=== PATIENT | male | born 1930 | race Caucasian/White ===

== ENCOUNTER 2016-07-06 09:22 | Inpatient (IN) ==
[2016-07-06] MEDS ORDERED: IPRATROPIUM/ALBUTEROL 3 ML AMPUL.NEB NEB ONE ×2 (09:27→09:59)
[2016-07-06 10:17] LABS: Basophils # (Auto) 0.2 K/mcL (0.0-0.3); Basophils % (Auto) 1.8 % (0.0-2.0); Eosinophils # (Auto) 4.5 K/mcL (0.0-0.7); Eosinophils % (Auto) 36.2 % (0.0-7.0); Granulocytes % (Auto) 38.1 % (38.0-78.0); Lymphocytes # (Auto) 1.6 K/mcL (1.5-4.8); Lymphocytes % (Auto) 12.7 % (15.5-49.0); Mean Cell Volume 95.7 fL (80.0-100.0); Mean Corpuscular HGB Conc 32.3 g/dL (31.0-36.0); Mean Corpuscular Hemoglobin 30.9 pg (26.0-34.0); Monocytes # (Auto) 1.4 K/mcL (0.1-0.9); Monocytes % (Auto) 11.2 % (1.0-12.0); Platelet Count 561 K/mcL (140-440); RBC 3.33 M/mcL (4.50-5.90); Red Cell Distribution Width 20.5 % (11.5-14.5)
--- NOTE | 2016-07-06 10:41 | XRay Report ---
HISTORY: Reason for Exam:Chest Pain FINDINGS: A mild alveolar infiltrate is developed in the right lower lobe. This is new since 01/27/16. Prominent increased interstitial lung markings are present bilaterally. This was present on the prior study but more apparent on today's exam. The patient may have underlying interstitial fibrosis and interstitial inflammation. No pleural effusion is present. The heart size is normal. IMPRESSION: Mild right lower lobe pneumonia superimposed upon underlying interstitial lung disease Interpreted and Authenticated by: Scottie Narayan 07/06/16
[2016-07-06 10:43] LABS: Creatine Kinase MB 4.2 ng/ml (0-4.9); Myoglobin 83 ng/ml (28-72)
[2016-07-06 10:44] LABS: ALT/SGPT 14 U/l (0-40); Albumin 4.4 gm/dL (3.2-5.2); Albumin/Globulin Ratio 1.5 (1.0-2.3); Alkaline Phosphatase 196 U/L (39-117); Blood Urea Nitrogen 20 mg/dl (8-23); Creatine Kinase 59 IU/L (24-195)
[2016-07-06] MEDS ORDERED: cefTRIAXone 1 GM VIAL ONE (11:42)
[2016-07-06] MEDS ORDERED: PIPERACILLIN SODIUM/TAZOBACTAM 3.375 GM VIAL IV ONE (11:43)
[2016-07-06] MEDS ORDERED: ONDANSETRON 4 MG/2 ML VIAL IV PRN (12:39)
[2016-07-06] MEDS ORDERED: VANCOMYCIN PER PHARMACY IV ONE (12:39)
[2016-07-06] MEDS ORDERED: ACETAMINOPHEN 325 MG TABLET PO PRN (12:39)
[2016-07-06] MEDS ORDERED: MECLIZINE 25 MG TABLET PO PRN (12:39)
[2016-07-06] MEDS ORDERED: ACETAMINOPHEN 1,000 MG/100 ML BOTTLE IV PRN (12:39)
[2016-07-06] MEDS ORDERED: traZODone HCL 50 MG TABLET PO PRN (12:39)
[2016-07-06] MEDS ORDERED: LORazepam (PP) 1 MG TABLET (#4) PO PRN (12:39)
[2016-07-06] MEDS ORDERED: POTASSIUM CHLORIDE 20 MEQ PACKET PO PRN (12:39)
[2016-07-06] MEDS ORDERED: MAGNESIUM SULFATE 2 GM/50 ML BAG IV PRN (12:39)
[2016-07-06] MEDS ORDERED: guaiFENesin/CODEINE 10 ML UDC PO PRN (12:39)
[2016-07-06] MEDS ORDERED: PIPERACILLIN SODIUM/TAZOBACTAM 3.375 GM in DEXTROSE 5% IN WATER 50 ML IV SCH (12:45)
[2016-07-06] MEDS ORDERED: cefTRIAXone 1 GM in DEXTROSE 5% IN WATER 50 ML IV ONE (12:45)
[2016-07-06] MEDS ORDERED: VANCOMYCIN 1,000 MG in 0.9 % SODIUM CHLORIDE 250 ML IV ONE (12:47)
[2016-07-06 13:19] LABS: C-Reactive Protein 0.6 mg/dl (0.0-0.8)
[2016-07-06] MEDS ORDERED: WARFARIN 2.5 MG TABLET PO ONE (14:00)
[2016-07-06] MEDS: IPRATROPIUM/ALBUTEROL 3 ML AMPUL.NEB NEB SCH ×3 (14:51→23:03)
[2016-07-06 16:24] LABS: Hemoglobin A1C 4.9 % HGB (4.0-6.0)
--- NOTE | 2016-07-06 16:30 | History and Physical Report ---
DATE OF ADMISSION: 07/06/2016 REASON FOR ADMISSION: Worsening shortness of breath. HISTORY OF CHIEF COMPLAINT: This is an 86-year-old gentleman who comes in to [facility] with worsening shortness of breath that has progressed over the last couple of days. The patient usually uses 2 liters of oxygen. He is undergoing rehab at the care facility for his recent hip surgery. However, due to deteriorating status he comes to [facility] ER requiring over 3 liters of oxygen. Initial workup was significant for right lower lobe pneumonia, superimposed interstitial lung disease. The patient received first dose of antibiotics. Hospitalist Service was consulted. At the time of examination, the patient is alert, was able to answer most of the questions. He does not seem to be in apparent distress, but he is slightly short of breath. He endorses to cough but denies fevers, shaking chills, drenching sweats. He endorses to sick contacts at the care center. However, he is up-to-date on pneumonia vaccine. He denies weight loss, glandular swelling, bloody stool, diarrhea, or dysuria. REVIEW OF SYSTEMS: Ten-point review of system was performed and negative except the ones discussed above. PAST MEDICAL HISTORY: 1. History of interstitial lung disease. 2. Macrocytic anemia. 3. Gout. 4. Hypertension. 5. O2-dependent COPD. 6. DJD. 7. Seizure disorder. 8. Anticoagulation for CVA prophylaxis. 9. Atrial fibrillation. CURRENT MEDICATIONS: 1. Budesonide inhaled b.i.d. 2. Warfarin 5 mg. 3. Tramadol 50 mg. 4. Losartan 100 mg. 5. Lorazepam 0.5 mg at bedtime p.r.n. 6. Gabapentin 300 mg b.i.d. 7. Fluoxetine 20 mg. 8. Meclizine 25 mg t.i.d. p.r.n. ALLERGIES: KNOWN TO LATEX. SOCIAL HISTORY: The patient is to his , Rayne. He quit smoking 7 years ago, but carries over a [id number] history of smoking. Regular alcohol use. Sees Gaviota Mercedes NP, primary care physician. FULL CODE STATUS. FAMILY HISTORY: None major. PHYSICAL EXAMINATION: GENERAL: The patient is alert and oriented. He denies any active distress except for mild shortness of breath. BMI 23. Height 5 feet 11 inches. VITAL SIGNS: Blood pressure 157/66, respiratory rate 18, temperature 97.4, pulse 88 and regular, sats 96% on 3 liters of oxygen. HEENT: Pupils bilaterally symmetric. Oral cavity is dry. No ear or nose discharge. Head is normocephalic and atraumatic. NECK: No lymphadenopathy. HEART: S1, S2 regular rhythm. ESM grade 1. CHEST: Diminished breath sounds at bases, late inspiratory crackles and expiratory rhonchi appreciated. ABDOMEN: Soft and nontender. LOWER EXTREMITIES: No cyanosis or clubbing. No joint swelling. SKIN: No suspicious lesions. PSYCHIATRIC: Alert and cooperative. No anxiety. NEURO: Nonfocal, moving all four extremities. LABS AND IMAGING: Left lower lobe infiltrate suggestive of pneumonia on imaging. White count 12.3, hemoglobin 10.3, ESR 38, platelets 561. Lactic acid 0.9. D-dimer negative. Sodium 136, potassium 4.2, creatinine 1.1, BUN 20. Cardiac enzymes negative. BNP 2251. Procalcitonin less than 0.05. ASSESSMENT AND PLAN: An 86-year-old admitted with right lower lobe pneumonia with dyspnea. 1. Right lower lobe pneumonia. Continue antibiotic coverage for community-acquired versus aspiration. Include Zosyn for gram-negative anaerobe coverage. Await sputum cultures, blood cultures. 2. Hypoxic respiratory insufficiency secondary to above. Continue supplemental oxygen. 3. History of underlying COPD. Continue bronchodilators. 4. Anxiety disorder. Continue SSRI. 5. History of atrial fibrillation. Rate control. 6. CVA prophylaxis on Coumadin. 7. Hypertension. Continue losartan. 8. Neuropathy. Continue gabapentin. PLAN FOR TODAY: 1. Admit as inpatient. 2. Antibiotic coverage. 3. Preexisting medical condition management as above. AA:west Job ID: [id number] Doc ID: [id number] Thomas Mercedes NP
[2016-07-06] MEDS: 0.9 % SODIUM CHLORIDE 10 ML SYRINGE IV SCH ×2 (16:38→22:39)
[2016-07-06] MEDS: PIPERACILLIN SODIUM/TAZOBACTAM 3.375 GM in DEXTROSE 5% IN WATER 50 ML IV SCH ×3 (16:38→23:26)
[2016-07-06] MEDS: BUDESONIDE 0.5 MG/2 ML AMPUL.NEB NEB SCH (19:14)
[2016-07-06] MEDS: traMADol 50 MG TABLET PO PRN (21:54)
[2016-07-06] MEDS: LORazepam 0.5 MG TABLET PO PRN (21:55)
[2016-07-06] MEDS: SENNOSIDES/DOCUSATE SODIUM 1 TAB TABLET PO SCH (22:39)
[2016-07-06] MEDS: DOCUSATE SODIUM 100 MG CAPSULE PO SCH (22:39)
[2016-07-07] MEDS: GABAPENTIN 300 MG CAPSULE PO PRN (02:20)
[2016-07-07] MEDS: IPRATROPIUM/ALBUTEROL 3 ML AMPUL.NEB NEB SCH ×6 (02:20→22:23)
[2016-07-07] MEDS: 0.9 % SODIUM CHLORIDE 10 ML SYRINGE IV SCH ×2 (05:19→14:02)
[2016-07-07] MEDS: PIPERACILLIN SODIUM/TAZOBACTAM 3.375 GM in DEXTROSE 5% IN WATER 50 ML IV SCH ×3 (05:19→18:05)
[2016-07-07 06:28] LABS: Mean Corpuscular HGB Conc 32.3 g/dL (31.0-36.0); Platelet Count 410 K/mcL (140-440); RBC 2.69 M/mcL (4.50-5.90); Red Cell Distribution Width 20.5 % (11.5-14.5)
[2016-07-07 06:39] LABS: ALT/SGPT 11 U/l (0-40); Albumin 3.5 gm/dL (3.2-5.2); Albumin/Globulin Ratio 1.4 (1.0-2.3); Alkaline Phosphatase 161 U/L (39-117); Bilirubin,Direct < 0.2 mg/dL (0.0-0.3); Blood Urea Nitrogen 16 mg/dl (8-23); Gamma Glutamyl Transpeptidase 44 U/L (8-61); Magnesium 2.1 mg/dL (1.6-2.5); Uric Acid 5.8 mg/dL (2.5-8.0)
[2016-07-07] MEDS: BUDESONIDE 0.5 MG/2 ML AMPUL.NEB NEB SCH ×3 (06:51→19:25)
[2016-07-07 07:46] LABS: Band Neutrophils % 4 % (0-10); Basophils % (Manual) 1 % (0-2); Eosinophils % (Manual) 38 % (0-7); Lymphocytes % 10 % (15-49); Monocytes % (Manual) 7 % (1-12); Platelet Estimate NORMAL (NORMAL); RBC Morphology ABNORM (NORMAL); Segmented Neutrophils % 40 % (38-78)
--- NOTE | 2016-07-07 08:29 | Emergency Department Note ---
SOB HPI - General Chief Complaint: Shortness of Breath/Dyspnea Stated Complaint: short of breath Time Seen by Provider: 07/06/16 09:58 Source: patient, family Mode of arrival: ambulatory Limitations: no limitations - History of Present Illness This patient was seen and brought in at the time our computers were down-so I am re-creating this note from notes taken at that time This 86-year-old gentleman normally walks several rounds at [facility]. However today he became short of breath and had to sit down and could not continue. In the past when he said similar episodes it was a pneumonia; he is concerned about that today. He does take 2 L oxygen by nasal cannula [id number]. Denies nausea vomiting diarrhea dysuria or fever His supplied much of the history and corrected him several times- it is not clear if he is having some memory issues - Related Data Home Medications Medication Instructions Recorded Confirmed albuterol sulfate HFA 90 2 puff INHALATION .COMPLEX g 09/02/14 07/06/16 mcg/actuation aerosol inhaler aspirin 81 mg chewable tablet 81 mg PO QDAY tab 09/02/14 07/06/16 budesonide 0.5 mg/2 mL suspension 0.5 mg INHALATION Q12H ml 09/02/14 07/06/16 for nebulization calcium carbonate 500 mg (1,250 1 tab PO TID tab 09/02/14 07/06/16 mg)-vitamin D3 125 unit tablet traMADol [Ultram] 50 mg PO Q6HP PRN 09/06/15 07/06/16 Previous Rx's Medication Instructions Recorded Meclizine [Antivert] 25 mg PO TIDP PRN #20 tab 04/28/15 losartan 100 mg tablet 100 mg PO QDAY #90 tab 10/03/15 lorazepam 1 mg tablet 0.5 mg PO QHS PRN 30 Days 11/14/15 fluticasone 50 mcg/actuation nasal 2 spray INTRANASAL BID #16 g 04/02/16 spray,suspension fluoxetine 20 mg capsule 20 mg PO QDAY #30 cap 05/03/16 gabapentin 300 mg capsule 300 mg PO BID PRN 90 Days 05/03/16 warfarin 5 mg tablet See Dose Instructions PO QDAY #60 05/10/16 tab Allergies Allergy/AdvReac Type Severity Reaction Status Date / Time latex Allergy Mild Rash Verified 07/06/16 09:34 Review of Systems All systems ED: reviewed and negative except as stated. Past Medical History - Past Medical History Attestation: Yes: The following information was validated with the patient. Medical history: Reports: atrial fibrillation (n Coumadin), CHF, COPD, CVA, hypertension, osteoporosis, peripheral artery disease, other (gout, multiple myeloma/myelodysplasia) Surgical history ED: Reports: herniorrhaphy, hip replacement, orthopedic, other (2 leg), tonsillectomy Psychiatric history: Reports: depression - Social History smoking status: Former smoker Alcohol use: Reports: None Drug use: Reports: none Physical Exam Thin male no acute distress wearing nasal cannula oxygen. Significant gross hearing loss. Normocephalic atraumatic. Conjunctiva clear sclerae white and nonicteric. No nasal discharge or congestion. Oropharynx is pink and moist. Neck is supple without lymphadenopathy thyromegaly or carotid bruit. Heart is irregularly irregular rhythm. No murmurs appreciated. Lungs are basically clear to auscultation bilaterally but I'm not hearing well at the bases. No wheezes rales rhonchi or respiratory distress. Abdomen soft nontender nondistended. No pedal edema. +2 radial pulse. Alert and oriented and giving me a reasonable history- albeit corrected by his . He does express some frustration that he doesn't remember some things. Somewhat depressed mood/ frustrated/irritable - General Limitations: no limitations Course Vital Signs Temperature 97.1 F L 07/06/16 09:28 Pulse Rate 88 07/06/16 09:28 Respiratory Rate 20 07/06/16 09:28 Pulse Oximetry (%) 100 07/06/16 09:28 Temperature 97.4 F L 07/07/16 02:43 Pulse Rate 88 07/07/16 07:27 Respiratory Rate 16 07/07/16 07:27 Blood Pressure 159/68 07/07/16 02:43 Pulse Oximetry (%) 97 07/07/16 07:28 Shortness of Breath/Dyspnea - Lab Data Lab results reviewed: Yes I reviewed the patient's lab results. Result diagrams: 07/07/16 04:34 07/07/16 04:34 Lab Results 07/06/16 07/06/16 07/06/16 Range/Units 09:57 09:57 09:57 WBC 12.3 H (4.5-11.0) K/mcL RBC 3.33 L (4.50-5.90) M/mcL Hgb 10.3 L (13.5-16.5) g/dL Hct 31.9 L (41.0-55.0) % MCV 95.7 (80.0-100.0) fL MCH 30.9 (26.0-34.0) pg MCHC 32.3 (31.0-36.0) g/dL RDW 20.5 H (11.5-14.5) % Plt Count 561 H (140-440) K/mcL MPV 8.4 (7.4-10.4) fL Gran % 38.1 (38.0-78.0) % Lymph % (Auto) 12.7 L (15.5-49.0) % [place] % (Auto) 11.2 (1.0-12.0) % Eos % (Auto) 36.2 H (0.0-7.0) % Baso % (Auto) 1.8 (0.0-2.0) % Gran # 4.7 (1.8-8.0) K/mcL Lymph # 1.6 (1.5-4.8) K/mcL [place] # 1.4 H (0.1-0.9) K/mcL Eos # 4.5 H (0.0-0.7) K/mcL Baso # 0.2 (0.0-0.3) K/mcL ESR (0-15) mm/hr D-Dimer (0.00-0.40) ug/ml VBG Lactic Acid (0.5-2.2) mmol/L Sodium 136 (133-145) mmol/L Potassium 4.2 (3.3-5.1) mmol/L Chloride 98 (96-108) mmol/L Carbon Dioxide 23 (22-30) mmol/L Anion Gap 15.0 (8-16) BUN 20 (8-23) mg/dl Creatinine 1.1 (0.7-1.2) mg/dl GFR Calculation 60 Glucose 98 (70-105) mg/dL Hemoglobin A1c (4.0-6.0) % HGB Estim Average Glucose mg/dL Calcium 8.9 (8.6-10.4) mg/dl Total Bilirubin 1.1 H (0.0-1.0) mg/dL AST 23 (0-37) U/l ALT 14 (0-40) U/l Alkaline Phosphatase 196 H (39-117) U/L Total Creatine Kinase 59 (24-195) IU/L CK-MB (CK-2) 4.2 (0-4.9) ng/ml Myoglobin 83 H (28-72) ng/ml Troponin T < 0.01 (0-0.03) ng/ml C-Reactive Protein (0.0-0.8) mg/dl NT-Pro-B Natriuret Pep (0-450) pg/ml Total Protein 7.3 (5.9-8.4) gm/dL Albumin 4.4 (3.2-5.2) gm/dL Globulin 2.9 (2.2-3.7) gm/dL Albumin/Globulin Ratio 1.5 (1.0-2.3) Procalcitonin (<0.10) ng/mL 07/06/16 07/06/16 07/06/16 Range/Units 09:57 09:57 09:57 WBC (4.5-11.0) K/mcL RBC (4.50-5.90) M/mcL Hgb (13.5-16.5) g/dL Hct (41.0-55.0) % MCV (80.0-100.0) fL MCH (26.0-34.0) pg MCHC (31.0-36.0) g/dL RDW (11.5-14.5) % Plt Count (140-440) K/mcL MPV (7.4-10.4) fL Gran % (38.0-78.0) % Lymph % (Auto) (15.5-49.0) % [place] % (Auto) (1.0-12.0) % Eos % (Auto) (0.0-7.0) % Baso % (Auto) (0.0-2.0) % Gran # (1.8-8.0) K/mcL Lymph # (1.5-4.8) K/mcL [place] # (0.1-0.9) K/mcL Eos # (0.0-0.7) K/mcL Baso # (0.0-0.3) K/mcL ESR (0-15) mm/hr D-Dimer < 0.27 (0.00-0.40) ug/ml VBG Lactic Acid (0.5-2.2) mmol/L Sodium (133-145) mmol/L Potassium (3.3-5.1) mmol/L Chloride (96-108) mmol/L Carbon Dioxide (22-30) mmol/L Anion Gap (8-16) BUN (8-23) mg/dl Creatinine (0.7-1.2) mg/dl GFR Calculation Glucose (70-105) mg/dL Hemoglobin A1c (4.0-6.0) % HGB Estim Average Glucose mg/dL Calcium (8.6-10.4) mg/dl Total Bilirubin (0.0-1.0) mg/dL AST (0-37) U/l ALT (0-40) U/l Alkaline Phosphatase (39-117) U/L Total Creatine Kinase (24-195) IU/L CK-MB (CK-2) (0-4.9) ng/ml Myoglobin (28-72) ng/ml Troponin T (0-0.03) ng/ml C-Reactive Protein 0.6 (0.0-0.8) mg/dl NT-Pro-B Natriuret Pep 2251.0 H (0-450) pg/ml Total Protein (5.9-8.4) gm/dL Albumin (3.2-5.2) gm/dL Globulin (2.2-3.7) gm/dL Albumin/Globulin Ratio (1.0-2.3) Procalcitonin (<0.10) ng/mL 07/06/16 07/06/16 07/06/16 Range/Units 09:57 09:57 09:57 WBC (4.5-11.0) K/mcL RBC (4.50-5.90) M/mcL Hgb (13.5-16.5) g/dL Hct (41.0-55.0) % MCV (80.0-100.0) fL MCH (26.0-34.0) pg MCHC (31.0-36.0) g/dL RDW (11.5-14.5) % Plt Count (140-440) K/mcL MPV (7.4-10.4) fL Gran % (38.0-78.0) % Lymph % (Auto) (15.5-49.0) % [place] % (Auto) (1.0-12.0) % Eos % (Auto) (0.0-7.0) % Baso % (Auto) (0.0-2.0) % Gran # (1.8-8.0) K/mcL Lymph # (1.5-4.8) K/mcL [place] # (0.1-0.9) K/mcL Eos # (0.0-0.7) K/mcL Baso # (0.0-0.3) K/mcL ESR 38 H (0-15) mm/hr D-Dimer (0.00-0.40) ug/ml VBG Lactic Acid (0.5-2.2) mmol/L Sodium (133-145) mmol/L Potassium (3.3-5.1) mmol/L Chloride (96-108) mmol/L Carbon Dioxide (22-30) mmol/L Anion Gap (8-16) BUN (8-23) mg/dl Creatinine (0.7-1.2) mg/dl GFR Calculation Glucose (70-105) mg/dL Hemoglobin A1c 4.9 (4.0-6.0) % HGB Estim Average Glucose 94 mg/dL Calcium (8.6-10.4) mg/dl Total Bilirubin (0.0-1.0) mg/dL AST (0-37) U/l ALT (0-40) U/l Alkaline Phosphatase (39-117) U/L Total Creatine Kinase (24-195) IU/L CK-MB (CK-2) (0-4.9) ng/ml Myoglobin (28-72) ng/ml Troponin T (0-0.03) ng/ml C-Reactive Protein (0.0-0.8) mg/dl NT-Pro-B Natriuret Pep (0-450) pg/ml Total Protein (5.9-8.4) gm/dL Albumin (3.2-5.2) gm/dL Globulin (2.2-3.7) gm/dL Albumin/Globulin Ratio (1.0-2.3) Procalcitonin < 0.05 (<0.10) ng/mL 07/06/16 Range/Units 10:11 WBC (4.5-11.0) K/mcL RBC (4.50-5.90) M/mcL Hgb (13.5-16.5) g/dL Hct (41.0-55.0) % MCV (80.0-100.0) fL MCH (26.0-34.0) pg MCHC (31.0-36.0) g/dL RDW (11.5-14.5) % Plt Count (140-440) K/mcL MPV (7.4-10.4) fL Gran % (38.0-78.0) % Lymph % (Auto) (15.5-49.0) % [place] % (Auto) (1.0-12.0) % Eos % (Auto) (0.0-7.0) % Baso % (Auto) (0.0-2.0) % Gran # (1.8-8.0) K/mcL Lymph # (1.5-4.8) K/mcL [place] # (0.1-0.9) K/mcL Eos # (0.0-0.7) K/mcL Baso # (0.0-0.3) K/mcL ESR (0-15) mm/hr D-Dimer (0.00-0.40) ug/ml VBG Lactic Acid 0.9 (0.5-2.2) mmol/L Sodium (133-145) mmol/L Potassium (3.3-5.1) mmol/L Chloride (96-108) mmol/L Carbon Dioxide (22-30) mmol/L Anion Gap (8-16) BUN (8-23) mg/dl Creatinine (0.7-1.2) mg/dl GFR Calculation Glucose (70-105) mg/dL Hemoglobin A1c (4.0-6.0) % HGB Estim Average Glucose mg/dL Calcium (8.6-10.4) mg/dl Total Bilirubin (0.0-1.0) mg/dL AST (0-37) U/l ALT (0-40) U/l Alkaline Phosphatase (39-117) U/L Total Creatine Kinase (24-195) IU/L CK-MB (CK-2) (0-4.9) ng/ml Myoglobin (28-72) ng/ml Troponin T (0-0.03) ng/ml C-Reactive Protein (0.0-0.8) mg/dl NT-Pro-B Natriuret Pep (0-450) pg/ml Total Protein (5.9-8.4) gm/dL Albumin (3.2-5.2) gm/dL Globulin (2.2-3.7) gm/dL Albumin/Globulin Ratio (1.0-2.3) Procalcitonin (<0.10) ng/mL - Radiology Data Radiology results reviewed: Yes I reviewed the patient's radiology results. Chest x-ray shows right lower lobe pneumonia - EKG Data EKG attestation: Yes I reviewed and interpreted this EKG. EKG results narrative: EKG shows atrial fibrillation with right bundle-branch block with a rate of 86 Disposition Clinical Impression: Pneumonia Qualifiers: Pneumonia type: due to unspecified organism Laterality: right Lung location: lower lobe of lung Qualified Code(s): J18.1 - Lobar pneumonia, unspecified organism Summary: Right lower lobe pneumonia so we cultured his sputum and Blood. Lactic acid was 0.88. Laboratory shows also elevated white count. Start vancomycin and Rocephin, add Zosyn per Dr. Graves. Discussed situation with Dr. Griffin who agreed to accept patient for admission Disposition: Home, Self-Care Condition: Fair
[2016-07-07] MEDS: ASPIRIN 81 MG TAB.CHEW PO SCH (10:10)
[2016-07-07] MEDS: DOCUSATE SODIUM 100 MG CAPSULE PO SCH ×2 (10:10→20:08)
[2016-07-07] MEDS: FLUoxetine HCL 20 MG CAPSULE PO SCH (10:11)
[2016-07-07] MEDS: LOSARTAN 50 MG TABLET PO SCH (10:11)
[2016-07-07] MEDS: MULTIVIT,THER IRON,CA,FA & MIN 1 TABLET PO SCH (10:11)
--- NOTE | 2016-07-07 10:52 | Internal Med Progress Note ---
Medical - PN: Subj Patient information: Note initiated : 07/07/16 at 10:41 am Service Date, if different from initiated Date: [] Patient: Benny Austin 86 y/o M admitted on 07/06/16 for SOB/Right Lower Lobe Pneumonia with Dyspnea. Chief Complaint: [] Interval history: 07/06 patient admitted with bibasilar pneumonia and shortness of breath. Sepsis with white count 12.3. INR 2.6. admitted on [facility]. Curb 65 score3. speech therapy eval/physical therapy/oxygen and bronchodilators 07/07 Patient doing better however had a rough night and could not sleep. WBC down to 9.2. However no fever chills nausea vomiting or concerns per staff. no significant shortness of breath on 3 L oxygen. Resting comfortably - Constitutional Vitals: Vital Signs Temp Pulse Resp BP Pulse Ox 97.4 F L 88 16 159/68 97 07/07/16 02:43 07/07/16 07:27 07/07/16 07:27 07/07/16 02:43 07/07/16 07:28 Period Temp Pulse Resp BP Sys/[place] Pulse Ox Last 24 Hr 97.1 F-98.6 F 60-91 16-20 151-165/65-84 95-100 Intake and Output 07/06/16 07/07/16 07/07/16 21:59 05:59 13:59 Intake Total 500 / 500 650 / 650 Output Total 800 / 800 Balance 500 / 500 -150 / -150 Weight 165 lb Intake & Output: Intake & Output 07/06/16 07/07/16 07/07/16 21:59 05:59 13:59 Intake Total 500 / 500 650 / 650 Output Total 800 / 800 Balance 500 / 500 -150 / -150 Weight 165 lb Intake: IV 50 / 50 50 / 50 Zosyn 3.375 gm In 50 / 50 50 / 50 Dextrose 5% in Water 50 ml @ 100 mls/hr IV Q6H MANNIE Rx#:[id number] Oral 450 / 450 600 / 600 Output: Void Amount 800 / 800 Other: Meal Dinner Percent of Meal Consumed 75% # Voids 1 General appearance: moderate distress, no acute distress Exam: alert oriented nonlabored breathing On 2 L oxygen Nondistended abdomen no lymphedema Medical - PN: Obj Da - Labs CBC & Chem 7: 04/26/17 04:34 07/07/16 04:34 Labs: Abnormal Lab Results 07/07/16 07/07/16 07/07/16 04:34 04:34 04:34 RBC 2.69 L Hgb 8.3 L Hct 25.8 L RDW 20.5 H Lymphocytes % 10 L Eosinophils % (Manual) 38 H RBC Morphology Abnorm A RBC Fragments Occ A PT 28.6 H INR 2.6 H Calcium 8.2 L Alkaline Phosphatase 161 H Meds: Medications Acetaminophen (Tylenol) 650 mg PO Q4-6HP PRN PRN Reason: PAIN/FEVER > 101 Albuterol/Ipratropium (Duoneb) 3 ml NEB Q4HRT [facility] Last Admin: 07/07/16 06:51 Dose: 3 ml Aspirin (Aspirin) 81 mg PO QDAY [facility] Last Admin: 07/07/16 10:10 Dose: 81 mg Budesonide (Pulmicort) 0.5 mg NEB Q12 [facility] Last Admin: 07/07/16 06:51 Dose: 0.5 mg Docusate Sodium (Colace) 100 mg PO BID [facility] Last Admin: 07/07/16 10:10 Dose: 100 mg Fluoxetine HCl (Prozac) 20 mg PO QDAY [facility] Last Admin: 07/07/16 10:11 Dose: 20 mg Gabapentin (Neurontin) 300 mg PO BID PRN PRN Reason: back pain Last Admin: 07/07/16 02:20 Dose: 300 mg Guaifenesin/Codeine Phosphate (Robitussin Ac) 10 ml PO Q4HP PRN PRN Reason: Cough Magnesium Sulfate (Magnesium Sulfate) 2 gm in 50 mls @ 50 mls/hr IV UD PRN PRN Reason: MG = or < 1.7 Acetaminophen (Ofirmev) 1,000 mg in 100 mls @ 200 mls/hr IV Q6HP PRN PRN Reason: PAIN/FEVER > 101 Piperacillin Sod/Tazobactam (Sod 3.375 gm/ Dextrose) 50 mls @ 100 mls/hr IV Q6H [facility] Last Admin: 07/07/16 05:19 Dose: 100 mls/hr Iron Carb/Multivit/Comal/Folic Acid (Multivitamin W/Minerals) 1 tab PO DAILY [facility] Last Admin: 07/07/16 10:11 Dose: 1 tab Lorazepam (Ativan) 0.5 mg PO HSP PRN PRN Reason: Insomnia Last Admin: 07/06/16 21:55 Dose: 0.5 mg Losartan Potassium (Cozaar) 100 mg PO DAILY [facility] Last Admin: 07/07/16 10:11 Dose: 100 mg Meclizine HCl (Antivert) 25 mg PO TIDP PRN PRN Reason: Vertigo Ondansetron HCl (Zofran) 4 mg IV Q4-6HP PRN PRN Reason: Nausea And Vomiting Potassium Chloride (Klor-Con) 40 meq PO DAILYP PRN PRN Reason: K+ < 3.5 Senna/Docusate Sodium (Senna Plus Tablet) 1 tab PO HS [facility] Last Admin: 07/06/16 22:39 Dose: Not Given Sodium Chloride (Saline Flush) 10 ml IV Q8 [facility] Last Admin: 07/07/16 05:19 Dose: Not Given Tramadol HCl (Ultram) 50 mg PO Q6HP PRN PRN Reason: Pain Last Admin: 07/06/16 21:54 Dose: 50 mg Trazodone HCl (Desyrel) 50 mg PO HSP PRN PRN Reason: Insomnia Warfarin Sodium (Coumadin Per Pharmacy) 1 order PO UD [facility] Warfarin Sodium (Coumadin) 2.5 mg PO ONCE@1400 ONE Stop: 07/07/16 14:01 Medical - PN: A/P - Time Spent With Patient Total time spent is greater than 50% in coordination of care (as documented) at patient's floor/unit and/or counseling patient: 25 - 35 minutes (1) Basal pneumonia Status: Acute Assessment and plan: * bibasal pneumonia community acquired versus aspiration. Clinical improvement noted on antibiotic coverage. Continue speech therapy eval and diet per ST recommendations/aspiration precautions. * Sepsis clinically improved with white count down to 9000 * Hypoxia on supplemental oxygen. Continue bronchodilators * neuropathy on gabapentin * Hypertension on losartan * anxiety disorder on fluoxetine * atrial fibrillation rate controlled * Anticoagulation on Coumadin. INR therapeutic * Full CODE STATUS Plan * continue antibiotics * and pulmonary toilet bronchodilators,Supplemental oxygen * pre-existing medical condition management as above * physical therapy Current Visit: Yes Medical - PN: Qual - Stroke Symptom Onset Unknown: No - VTE Deep Vein Thrombosis/Pulmonary Embolism Present on Admission: No
[2016-07-07] MEDS ORDERED: WARFARIN 2.5 MG TABLET PO ONE (14:00)
[2016-07-07] MEDS: SENNOSIDES/DOCUSATE SODIUM 1 TAB TABLET PO SCH (20:08)
[2016-07-07] MEDS: traMADol 50 MG TABLET PO PRN (22:43)
[2016-07-07] MEDS: LORazepam 0.5 MG TABLET PO PRN (22:44)
[2016-07-08] MEDS: PIPERACILLIN SODIUM/TAZOBACTAM 3.375 GM in DEXTROSE 5% IN WATER 50 ML IV SCH ×3 (00:01→12:23)
[2016-07-08] MEDS: GABAPENTIN 300 MG CAPSULE PO PRN (00:04)
[2016-07-08] MEDS: 0.9 % SODIUM CHLORIDE 10 ML SYRINGE IV SCH ×3 (00:44→15:28)
[2016-07-08] MEDS: IPRATROPIUM/ALBUTEROL 3 ML AMPUL.NEB NEB SCH ×4 (04:52→15:26)
[2016-07-08 06:19] LABS: Mean Cell Volume 96.3 fL (80.0-100.0); Mean Corpuscular HGB Conc 32.8 g/dL (31.0-36.0); Mean Corpuscular Hemoglobin 31.6 pg (26.0-34.0); Platelet Count 434 K/mcL (140-440); RBC 2.76 M/mcL (4.50-5.90)
[2016-07-08 06:42] LABS: ALT/SGPT 11 U/l (0-40); Albumin 3.8 gm/dL (3.2-5.2); Albumin/Globulin Ratio 1.5 (1.0-2.3); Alkaline Phosphatase 154 U/L (39-117); Bilirubin,Direct 0.2 mg/dL (0.0-0.3); Blood Urea Nitrogen 13 mg/dl (8-23); Gamma Glutamyl Transpeptidase 44 U/L (8-61); Magnesium 2.1 mg/dL (1.6-2.5); Uric Acid 4.4 mg/dL (2.5-8.0)
[2016-07-08] MEDS: BUDESONIDE 0.5 MG/2 ML AMPUL.NEB NEB SCH (06:43)
[2016-07-08 07:07] LABS: Anisocytosis 2+ (NONE SEEN); Eosinophils % (Manual) 48 % (0-7); Lymphocytes % 14 % (15-49); Monocytes % (Manual) 15 % (1-12); Ovalocytes 1+ (NONE SEEN); Platelet Estimate NORMAL (NORMAL); RBC Morphology ABNORM (NORMAL); Segmented Neutrophils % 23 % (38-78)
--- NOTE | 2016-07-08 08:54 | XRay Report ---
HISTORY: Reason for Exam:Interval Change-PNA follow-up right lower lobe pneumonia FINDINGS: The alveolar infiltrate in the right lower lobe has improved significantly since 07/06/16. However, there is increasing alveolar opacification developing overlying the left lower hilum. Patient has moderate underlying interstitial lung disease throughout both lungs. Is no pleural effusion. The heart size is normal. IMPRESSION: Bilateral pneumonia superimposed upon underlying interstitial lung disease. There has been improvement in the right lower lobe but subtle worsening around the left lower hilum Interpreted and Authenticated by: Scottie Narayan 07/08/16
[2016-07-08] MEDS: LOSARTAN 50 MG TABLET PO SCH (09:33)
[2016-07-08] MEDS: ASPIRIN 81 MG TAB.CHEW PO SCH (09:33)
[2016-07-08] MEDS: DOCUSATE SODIUM 100 MG CAPSULE PO SCH (09:33)
[2016-07-08] MEDS: FLUoxetine HCL 20 MG CAPSULE PO SCH (09:33)
[2016-07-08] MEDS: MULTIVIT,THER IRON,CA,FA & MIN 1 TABLET PO SCH (09:33)
--- NOTE | 2016-07-08 09:41 | Discharge Summary ---
Medical - DS: Prov Patient information: Note initiated : 07/08/16 at 9:37 am Service Date, if different from initiated Date: [] Patient: Benny Austin 86 y/o M admitted on 07/06/16 for SOB/Right Lower Lobe Pneumonia with Dyspnea. Chief Complaint: [] Date of admission: 07/06/16 13:01 Discharge date: 07/08/16 Primary care physician: [f_Reg Prim Care Provider] Medical - DS: Meds - Discharge Medications Prescriptions: Amoxicillin/Potassium Clav [Augmentin] 875 mg PO Q12H #10 tablet Active and Home Medications: Home Medications albuterol sulfate HFA 90 mcg/actuation aerosol inhaler 2 puff INHALATION .COMPLEX g 09/02/14 [History Confirmed 07/06/16 Last Taken Unknown] aspirin 81 mg chewable tablet 81 mg PO QDAY tab 09/02/14 [History Confirmed Last Taken Unknown] budesonide 0.5 mg/2 mL suspension for nebulization 0.5 mg INHALATION Q12H ml [History Confirmed 07/06/16 Last Taken Unknown] calcium carbonate 500 mg (1,250 mg)-vitamin D3 125 unit tablet 1 tab PO TID tab 09/02/14 [History Confirmed 07/06/16 Last Taken Unknown] Meclizine [Antivert] 25 mg PO TIDP PRN #20 tab 04/28/15 [Rx Confirmed 07/06/16 Last Taken Unknown] traMADol [Ultram] 50 mg PO Q6HP PRN 09/06/15 [History Confirmed 07/06/16 Last Taken Unknown] losartan 100 mg tablet 100 mg PO QDAY #90 tab 10/03/15 [Rx Confirmed 07/06/16 Last Taken 10/27/15] lorazepam 1 mg tablet 0.5 mg PO QHS PRN 30 Days 11/14/15 [Rx Confirmed 07/06/16 Last Taken Unknown] fluticasone 50 mcg/actuation nasal spray,suspension 2 spray INTRANASAL BID #16 g 04/02/16 [Rx Confirmed 07/06/16 Last Taken Unknown] fluoxetine 20 mg capsule 20 mg PO QDAY #30 cap 05/03/16 [Rx Confirmed 07/06/16 Last Taken Unknown] gabapentin 300 mg capsule 300 mg PO BID PRN 90 Days 05/03/16 [Rx Confirmed 07/06 Last Taken Unknown] warfarin 5 mg tablet See Dose Instructions PO QDAY #60 tab 05/10/16 [Rx Confirmed 07/06/16 Last Taken Unknown] Amoxicillin/Potassium Clav [Augmentin] 875 mg PO Q12H #10 tablet 07/08/16 [Rx Last Taken Unknown] Medical - DS: Hosp Hospital course: DISCHARGE DIAGNOSIS * Bibasal pneumonia community acquired versus aspiration. Clinical improvement noted on antibiotic coverage. Continue Augmentin for additional 5 days and follow therapy recommendations to prevent aspiration * Sepsis clinicall resolved * Hypoxia on supplemental oxygen. Continue bronchodilators at home * neuropathy on gabapentin * Hypertension on losartan * anxiety disorder on fluoxetine * atrial fibrillation rate controlled * Anticoagulation on Coumadin. INR therapeutic BRIEF POSSIBLE COURSE Mr. Austin is a 86 year old male admitted with bibasilar pneumonia 07/06 patient admitted with bibasilar pneumonia and shortness of breath. Sepsis with white count 12.3. INR 2.6. admitted on [facility]. Curb 65 score3. speech therapy eval/physical therapy/oxygen and bronchodilators 07/07 Patient doing better however had a rough night and could not sleep. WBC down to 9.2. However no fever chills nausea vomiting or concerns per staff. no significant shortness of breath on 3 L oxygen. Resting comfortably 07/08-patient doing well. No overnight events. Feels at baseline. Ambulating tolerating diet and physical therapy. No fever chills nausea vomiting worsening SOB or concerns per nursing staff. Detailed discharge instructions as below. Discharge diagnosis: . - Time Spent with Patient Total time spent providing and/or coordinating discharge services: Medical - DS: Exam - Constitutional Vitals: Vital Signs Temp Pulse Pulse Resp BP Pulse Ox 07/08/16 08:16 97.4 F L 70 24 134/71 92 07/08/16 07:33 95 07/08/16 07:08 96 07/08/16 07:07 73 16 96 07/08/16 07:01 76 16 07/08/16 04:00 98.1 F 92 H 16 149/84 96 07/07/16 23:07 97.5 F L 99 H 16 151/72 96 07/07/16 22:24 76 16 07/07/16 19:43 97.5 F L 85 16 163/73 96 07/07/16 19:25 76 16 07/07/16 19:00 16 97 07/07/16 16:00 97.7 F 98 H 16 130/76 98 07/07/16 15:15 76 12 98 07/07/16 15:12 76 12 07/07/16 12:00 98.0 F 84 16 110/58 95 07/07/16 11:14 82 97 07/07/16 11:10 84 Intake and Output 07/07/16 07/08/16 07/08/16 21:59 05:59 13:59 Intake Total 410 / 410 200 / 200 240 / 240 Output Total 200 / 200 Balance 210 / 210 200 / 200 240 / 240 Intake: IV 50 / 50 50 / 50 Zosyn 3.375 gm In 50 / 50 50 / 50 Dextrose 5% in Water 50 ml @ 100 mls/hr IV Q6H [facility] Rx#:[id number] Oral 360 / 360 150 / 150 240 / 240 Output: Void Amount 200 / 200 Other: Meal Breakfast Percent of Meal Consumed 50% Feeding Ability Independent # Voids 1 1 1 # Bowel Movements 1 Weight 166 lb Medical - DS: Data Labs on day of discharge: Labs from last 24 hours 07/08/16 07/08/16 07/08/16 04:55 04:55 04:55 WBC 11.4 H RBC 2.76 L Hgb 8.7 L Hct 26.5 L MCV 96.3 MCH 31.6 MCHC 32.8 RDW 21.0 H Plt Count 434 MPV 8.3 Total Counted 100 Seg Neutrophils % 23 L Band Neutrophils % Not Reportable Lymphocytes % 14 L Monocytes % (Manual) 15 H Eosinophils % (Manual) 48 H WBC Morphology Normal Platelet Estimate Normal RBC Morphology Abnorm A Anisocytosis 2+ A Ovalocytes 1+ A RBC Fragments Few A PT 30.3 H INR 2.8 H Sodium 138 Potassium 3.9 Chloride 100 Carbon Dioxide 24 Anion Gap 14.0 BUN 13 Creatinine 1.0 GFR Calculation 68 Glucose 86 Uric Acid 4.4 Calcium 8.4 L Phosphorus 3.3 Magnesium 2.1 Total Bilirubin 1.0 Direct Bilirubin 0.2 GGT 44 AST 18 ALT 11 Alkaline Phosphatase 154 H Lactate Dehydrogenase 155 Total Protein 6.4 Albumin 3.8 Globulin 2.6 Albumin/Globulin Ratio 1.5 Triglycerides 76 Medical - DS: A/P - Patient/Caregiver Discharge Instructions Activity: increase activity as tolerated, resume usual activities as tolerated Diet: Regular Diet Additional Instructions: Follow-up PCP in 5 days Coumadin dosing as prior with serial INR checks as per primary care physician I recommend primary care physician to check INR, CBC BMP as a posthospital follow-up and Chest x-ray in 1 week to assess interval resolution. Antibiotics for 5 days Continue fall precautions All meals on chair sitting upright at 90 degrees to prevent aspiration Return to ER if worsening fever chills shortness of breath, diarrhea, bleeding Review risk and side effect profile of medications including antibiotics. Side effect may include mild to severe reaction including rash, diarrhea, cdiff and even which can be prevented by close follow-up with PCP and monitoring for side effects Continue diet and activity as advised Discussed importance of medication adherence Please review medication list with patient prior to discharge Please schedule follow-up with PCP/Providers prior to discharge and provide printouts Portions of this chart may have been created with [employer] voice recognition software. Occasional wrong-word or ?sound-like? substitutions may have occurred due to the inherent limitations of voice recognition software. Please read the chart carefully and recognize, using context, where the substitutions have occurred. CC- PCP Prescriptions: Amoxicillin/Potassium Clav [Augmentin] 875 mg PO Q12H #10 tablet - Problem Maintenance (1) Basal pneumonia Status: Acute - Follow up Plan Follow up with: Gaviota Mercedes, MAY, TECHNICIAN [employer] [Primary Care Provider] - Disposition: Home, Self-Care Prognosis: Fair Rehab Potential: Good I certify that the patient requires SNF services: No Overall status at discharge: patient is progressing back to baseline Medical - DS: Qual - VTE Deep Vein Thrombosis/Pulmonary Embolism Present on Admission: No
[2016-07-08] MEDS ORDERED: WARFARIN 1 MG TABLET PO ONE (14:00)
== END 2016-07-08 15:40 | disposition home or self-care (01) | DRG 871 ==
LOC: ED 09:22 → MEDSUR 13:01
PROVIDERS: ADMIT Internal Medicine; ATTEND Internal Medicine

== ENCOUNTER 2016-11-11 09:15 | Inpatient (IN) ==
[2016-11-11] MEDS ORDERED: IPRATROPIUM/ALBUTEROL 3 ML AMPUL.NEB NEB ONE (09:20)
[2016-11-11] MEDS ORDERED: methylPREDNISolone SOD SUCC 125 MG/2 ML VIAL IV ONE (09:35)
[2016-11-11] MEDS ORDERED: AZITHROMYCIN 250 MG TABLET PO ONE (09:35)
--- NOTE | 2016-11-11 09:54 | Emergency Department Note ---
SOB HPI - General Chief Complaint: Shortness of Breath/Dyspnea Stated Complaint: Shortness of breath Time Seen by Provider: 11/11/16 09:19 Source: patient Mode of arrival: wheelchair Limitations: no limitations - History of Present Illness Patient presents, increasing shortness of breath and hypoxia over the last week. Productive cough with thick mucus, above his baseline COPD. Chronically wears oxygen but has had some decreasing oxygen levels, 92% at pulmonary rehabilitation on Tuesday, 84% today. Sent over for further evaluation. Mild chest heaviness, pain in his right ribs where he has chronic "cracked ribs", no fevers or chills. States similar symptoms to previous history of "multiple pneumonias". Otherwise, strength minimally decreased. - Related Data Home Medications Medication Instructions Recorded Confirmed albuterol sulfate HFA 90 2 puff INHALATION .COMPLEX g 09/02/14 10/06/16 mcg/actuation aerosol inhaler aspirin 81 mg chewable tablet 81 mg PO QDAY tab 09/02/14 10/06/16 budesonide 0.5 mg/2 mL suspension 0.5 mg INHALATION Q12H ml 09/02/14 10/06/16 for nebulization calcium carbonate 500 mg (1,250 1 tab PO TID tab 09/02/14 10/06/16 mg)-vitamin D3 125 unit tablet traMADol [Ultram] 50 mg PO Q6HP PRN 09/06/15 10/06/16 Previous Rx's Medication Instructions Recorded Meclizine [Antivert] 25 mg PO TIDP PRN #20 tab 04/28/15 fluticasone 50 mcg/actuation nasal 2 spray INTRANASAL BID #16 g 04/02/16 spray,suspension fluoxetine 20 mg capsule 20 mg PO QDAY #30 cap 05/03/16 lorazepam 1 mg tablet 0.5 mg PO QHS PRN 30 Days 09/29/16 gabapentin 300 mg capsule 300 mg PO .COMPLEX PRN #270 cap 10/06/16 cholecalciferol (vitamin D3) 2,000 2,000 unit PO QDAY #30 cap 10/08/16 unit capsule losartan 100 mg tablet 100 mg PO QDAY #90 tab 10/18/16 warfarin 5 mg tablet See Dose Instructions PO QDAY #60 11/08/16 tab Allergies Allergy/AdvReac Type Severity Reaction Status Date / Time latex Allergy Mild Rash Verified 11/11/16 09:17 Review of Systems All systems ED: reviewed and negative except as stated. Past Medical History - Past Medical History Attestation: Yes: The following information was validated with the patient. Medical history: Reports: atrial fibrillation (n Coumadin), CHF, COPD, CVA, hypertension, osteoporosis, peripheral artery disease, other (gout, multiple myeloma/myelodysplasia) Surgical history ED: Reports: herniorrhaphy, hip replacement, orthopedic, other (2 leg), tonsillectomy Psychiatric history: Reports: depression Family history: Reports: non-contributory - Social History smoking status: Former smoker Alcohol use: Reports: None Drug use: Reports: none Physical Exam - General Limitations: no limitations General appearance: alert, in no apparent distress - Head Head exam: atraumatic, normocephalic - Eye Eye exam: Present: normal appearance - ENT ENT exam: normal exam, mucous membranes moist - Neck Neck exam: Present: normal inspection. Absent: lymphadenopathy - Chest Chest inspection: Present: normal inspection, tenderness (right lower ribs) - Respiratory Respiratory exam: Present: other (diminished bilateral; transmitted breath sounds upper airways). Absent: wheezes, stridor, accessory muscle use, prolonged expiratory phase - Cardiovascular Cardiovascular exam: Present: regular rate, irregular rhythm. Absent: systolic murmur - Abdominal Exam Abdominal exam: Present: soft, tenderness (right upper flank). Absent: distention, guarding, rebound - Extremities Exam Extremities exam: Present: normal inspection. Absent: joint swelling - Back Exam Back exam: Present: normal inspection - Neurological Exam Neurological exam: Present: alert, oriented X3 - Psychiatric Psychiatric exam: Present: normal affect - Skin Skin exam: Present: warm, dry, intact. Absent: cyanosis Course - Reevaluation(s) Reevaluation #1: patient remains hemodynamically stable, improved breath sounds but no production of mucus with nebulized treatments Discussed chest x-ray results with Dr. Shore, made aware of CT findings from one week previous Discussed case with nurse practitioner Mago, CT obtained one week before for surveillance, pending referral to pulmonology in DECEMBER Time: 11:33 Vital Signs Temperature 98.2 F 11/11/16 09:15 Pulse Rate 82 11/11/16 09:15 Respiratory Rate 17 11/11/16 09:15 Blood Pressure 127/55 11/11/16 09:15 Pulse Oximetry (%) 92 11/11/16 09:15 Temperature 98.2 F 11/11/16 09:15 Pulse Rate 61 11/11/16 11:14 Respiratory Rate 24 H 11/11/16 11:14 Blood Pressure 125/56 11/11/16 11:01 Pulse Oximetry (%) 96 11/11/16 11:14 Shortness of Breath/Dyspnea - Medical Records Medical records reviewed: Yes I reviewed the patient's medical records. CT results from October 28 reviewed; outpatient clinic records reviewed - Lab Data Lab results reviewed: Yes I reviewed the patient's lab results. Result diagrams: 11/11/16 09:43 11/11/16 09:42 Lab Results 11/11/16 11/11/16 11/11/16 Range/Units 09:42 09:43 10:26 WBC 15.3 H (4.5-11.0) K/mcL RBC 2.79 L (4.50-5.90) M/mcL Hgb 8.9 L (13.5-16.5) g/dL Hct 26.9 L (41.0-55.0) % MCV 96.4 (80.0-100.0) fL MCH 31.7 (26.0-34.0) pg MCHC 32.9 (31.0-36.0) g/dL RDW 20.1 H (11.5-14.5) % Plt Count 636 H (140-440) K/mcL MPV 8.2 (7.4-10.4) fL Gran % 46.3 (38.0-78.0) % Lymph % (Auto) 14.7 L (15.5-49.0) % [place] % (Auto) 13.0 H (1.0-12.0) % Eos % (Auto) 24.3 H (0.0-7.0) % Baso % (Auto) 1.7 (0.0-2.0) % Gran # 7.1 (1.8-8.0) K/mcL Lymph # (Auto) 2.2 (1.5-4.8) K/mcL [place] # (Auto) 2.0 H (0.1-0.9) K/mcL Eos # (Auto) 3.7 H (0.0-0.7) K/mcL Baso # (Auto) 0.3 (0.0-0.3) K/mcL VBG Lactic Acid 1.7 (0.5-2.2) mmol/L Sodium 135 (133-145) mmol/L Potassium 4.2 (3.3-5.1) mmol/L Chloride 96 (96-108) mmol/L Carbon Dioxide 23 (22-30) mmol/L Anion Gap 16.0 (8-16) BUN 20 (8-23) mg/dl Creatinine 1.1 (0.7-1.2) mg/dl GFR Calculation 60 Glucose 98 (70-105) mg/dL Calcium 8.4 L (8.6-10.4) mg/dl Total Bilirubin 0.8 (0.0-1.0) mg/dL AST 24 (0-37) U/l ALT 15 (0-40) U/l Alkaline Phosphatase 149 H (39-117) U/L Total Protein 7.3 (5.9-8.4) gm/dL Albumin 3.4 (3.2-5.2) gm/dL Globulin 3.9 H (2.2-3.7) gm/dL Albumin/Globulin Ratio 0.9 L (1.0-2.3) - Radiology Data Radiology results reviewed: Yes I reviewed the patient's radiology results. ATYPICAL PNEUMONIA< POSSIBLE MASS Disposition Pt seen by [employer] MACHINE TENDER/PA only: No Clinical Impression: Atypical pneumonia, Acute exacerbation of chronic obstructive airways disease, Hypoxemia Summary: rapidly progressive multilobar atypical pneumonia likely needs biopsy, possible bronchoscopy discussed with Dr. Graves, appropriate for inpatient Disposition: Xfer As Inpt ([facility]) Condition: Fair Referrals: Gaviota Mercedes, MAY, [employer]DER [Primary Care Provider] -
[2016-11-11] MEDS ORDERED: cefTRIAXone 1 GM in DEXTROSE 5% IN WATER 50 ML IV ONE (10:11)
[2016-11-11 10:13] LABS: Basophils # (Auto) 0.3 K/mcL (0.0-0.3); Basophils % (Auto) 1.7 % (0.0-2.0); Eosinophils # (Auto) 3.7 K/mcL (0.0-0.7); Eosinophils % (Auto) 24.3 % (0.0-7.0); Granulocytes % (Auto) 46.3 % (38.0-78.0); Lymphocytes # (Auto) 2.2 K/mcL (1.5-4.8); Lymphocytes % (Auto) 14.7 % (15.5-49.0); Mean Cell Volume 96.4 fL (80.0-100.0); Mean Corpuscular HGB Conc 32.9 g/dL (31.0-36.0); Mean Corpuscular Hemoglobin 31.7 pg (26.0-34.0); Platelet Count 636 K/mcL (140-440); RBC 2.79 M/mcL (4.50-5.90); Red Cell Distribution Width 20.1 % (11.5-14.5)
--- NOTE | 2016-11-11 10:20 | XRay Report ---
CLINICAL INFORMATION: Reason for Exam:cough, hypoxia COMPARISON: 07/26/2016 plain film FINDINGS: The heart is mildly enlarged, but unchanged. A 10 cm stellate mass has developed in the suprahilar right upper lobe suspicious for primary lung carcinoma. It has resulted in right upper lobe volume loss and retraction of the cardiomediastinal silhouette rightward. There are scattered vague densities within the remainder of both lungs which are likely combinations scarring and metastases. These are more prominent. No effusions. Bones and soft tissues are normal IMPRESSION: 10 cm stellate mass, involving the suprahilar region of the right upper lobe, highly suspicious for primary lung carcinoma. Possible vague metastases in the remaining lungs. Consider repeat chest CT Interpreted and Authenticated by: Hayden Stanley 11/11/16
[2016-11-11] MEDS: ACETYLCYSTEINE 800 MG/4 ML VIAL NEB ONE (10:26)
[2016-11-11 10:30] LABS: ALT/SGPT 15 U/l (0-40); Albumin 3.4 gm/dL (3.2-5.2); Albumin/Globulin Ratio 0.9 (1.0-2.3); Alkaline Phosphatase 149 U/L (39-117); Blood Urea Nitrogen 20 mg/dl (8-23)
[2016-11-11] MEDS ORDERED: ONDANSETRON 4 MG/2 ML VIAL IV PRN (11:57)
[2016-11-11] MEDS ORDERED: POTASSIUM CHLORIDE 20 MEQ PACKET PO PRN (11:57)
[2016-11-11] MEDS ORDERED: MAGNESIUM SULFATE 2 GM/50 ML BAG IV PRN (11:57)
[2016-11-11] MEDS ORDERED: ACETAMINOPHEN 1,000 MG/100 ML BOTTLE IV PRN (11:57)
[2016-11-11] MEDS ORDERED: ACETAMINOPHEN 325 MG TABLET PO PRN (11:57)
[2016-11-11] MEDS ORDERED: guaiFENesin/CODEINE 10 ML UDC PO PRN (11:57)
--- NOTE | 2016-11-11 12:20 | Internal Med History&Physical ---
Medical - H&P: [facility] Patient information: Note initiated : 11/11/16 at 12:13 pm Service Date, if different from initiated Date: [] Patient: Benny Austin a 86 y/o M admitted on for Shortness of breath. Chief Complaint: [] Chief complaint: hortness of breath History of present illness: 11/11-Mr. Austin is a 86 year old M with a history of recurrent pneumonia who comes to [place] ER after be was found to be hypoxic at the out patient rehabilitation. Patient has been getting progressively short of breath along with nonpurulent productive sputum over the last few days. He could not sleep he previous night due to increasing dyspnea/orthopnea. He normally walks a mile a week averaging 6 blocks a day however today he could barely walk. He as been going to outpatient rehabilitation recovering after episode of pneumonia back in July. Initial workup in the ER was significant for white count of 15,000 with 24% eosinophils. Hospitalist service was consulted for admission n light of atypical pneumonia. Chest x-ray was consistent with dense infiltrates and possible underlying malignancy. However interestingly a CAT scan of the chest was performed on October 28 which showed bilateral infiltrates with a low suspicion of malignancy. However patient was not on any antibiotics and was unaware of the findings. After sputum and blood cultures patient received antibiotics in the ED. A chest CT was recommended by radiologist which was subsequently ordered. Hospitalist service was consulted. At the time of examination patient is alert and oriented. He is accompanied by his Rayne. He denies fever chills r weight loss. he denies any other swelling, arthralgia myalgia or headache photophobia. He denies sick contact. Medical - H&P: PMH Medical history: Basal pneumonia (Acute) Coumarin adverse reaction (Acute) Encounter for removal of nasal packing (Acute) Epistaxis (Acute) Pneumonia (Acute) Poor circulation of extremity (Acute) Pulmonary nodules/lesions, multiple (Acute) Allergic rhinitis (Chronic) 2011;stuffy and runny nose, especially at night Atrial fibrillation (Chronic 03/19/14) coumadin CHF (congestive heart failure) (Chronic 03/19/14) Dr. Alvarado COPD (chronic obstructive pulmonary disease) (Chronic) 2011; moderately severe per PFT in 2012 Carotid bruit (Chronic 09/08/12) Chronic sinusitis (Chronic 03/19/14) Dr. 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 Traylor Essential hypertension (Chronic) previous history, but this has not been a recent problem long term care phlebotomist current use of anticoagulant therapy (Chronic) Macrocytic anemia (Chronic) 2011; history of iron deficiency anemia Myelodysplastic syndrome (Chronic) Osteoporosis (Chronic) PVD (peripheral vascular disease) (Chronic 09/08/12) Seasonal affective disorder (Chronic) winter months Tinnitus (Chronic) since CVA Acute exacerbation of chronic obstructive airways disease (Resolved) Acute vestibular neuronitis (Resolved) Benign paroxysmal positional vertigo (Resolved) Closed hip fracture (Resolved 09/04/13) left hip, right hip fracture Community acquired pneumonia (Resolved) Contusion of shoulder, right (Resolved 04/23/13) Gastroenteritis (Resolved) Gout (Resolved) intermittent problems with this, treated with eating cherries or getting a steroid shot Inguinal hernia recurrent unilateral (Resolved 05/04/13) Multifocal atrial tachycardia (Resolved 03/19/14) Dr. Alvarado Muscle spasm (Resolved) Pleural effusion (Resolved 03/19/14) Dr. Alvarado Pneumonia (Resolved) Pneumonitis (Resolved 03/19/14) Dr. Alvarado Rheumatic fever (Resolved) as a child; rejected by the draft due to possible murmur Rib sprain (Resolved) Right upper quadrant abdominal pain (Resolved) Tobacco abuse (Resolved 09/08/12) Upper respiratory infection (Resolved) Surgical history: Chyloperitoneum determined by paracentesis (Resolved) Dr Alvarado 02/26/2014 H/O angiography (Resolved) Dr Collazo 07/02/2014 Hernia (Resolved) [address] Clemons History of bone marrow biopsy (Resolved) 10/04/2012 Dr. Durham History of hip replacement (Resolved) Right hip History of intravascular stent placement (Resolved) 07/02/2014 Dr. Collazo History of tonsillectomy (Resolved) 40 years of age. Hospitalized for one week with surgery Pertinent family history: Brother , at age 60 from asthma Asthma Father Asthma Osteoarthritis Sister Asthma Essential hypertension Acute myocardial infarction following CABG surgery Mother Essential hypertension Osteoarthritis Brother #2 , committed suicide Depression Social history: with Rayne Moseley retired Functional capacity: independent ambulation Smoking status: Former smoker Have you smoked in the last 12 months: No Drug use: none Alcohol use: none Medical - H&P: Meds Home Medications Medication Instructions Recorded Confirmed Type albuterol sulfate HFA 90 2 puff INHALATION .COMPLEX g 09/02/14 11/11/16 History mcg/actuation aerosol inhaler aspirin 81 mg chewable tablet 81 mg PO QDAY tab 09/02/14 11/11/16 History budesonide 0.5 mg/2 mL suspension 0.5 mg INHALATION Q12H ml 09/02/14 11/11/16 History for nebulization calcium carbonate 500 mg (1,250 1 tab PO TID tab 09/02/14 11/11/16 History mg)-vitamin D3 125 unit tablet Meclizine [Antivert] 25 mg PO TIDP PRN #20 tab 04/28/15 11/11/16 Rx traMADol [Ultram] 50 mg PO Q6HP PRN 09/06/15 11/11/16 History fluticasone 50 mcg/actuation nasal 2 spray INTRANASAL BID #16 g 04/02/16 Rx spray,suspension lorazepam 1 mg tablet 0.5 mg PO QHS PRN 30 Days 09/29/16 11/11/16 Rx cholecalciferol (vitamin D3) 2,000 2,000 unit PO QDAY #30 cap 10/08/16 11/11/16 Rx unit capsule losartan 100 mg tablet 100 mg PO QDAY #90 tab 10/18/16 11/11/16 Rx warfarin 5 mg tablet See Dose Instructions PO QDAY #60 11/08/16 11/11/16 Rx tab Gabapentin [Neurontin] 300 mg PO DAILY 11/11/16 11/11/16 History Gabapentin [Neurontin] 600 mg PO HS 11/11/16 11/11/16 History Allergies Allergy/AdvReac Type Severity Reaction Status Date / Time latex Allergy Mild Rash Verified 11/11/16 09:17 Medical - H&P: Exam - Constitutional Vitals: Temp Pulse Resp BP Pulse Ox 98.2 F 82 19 109/85 96 11/11/16 09:15 11/11/16 12:03 11/11/16 12:03 11/11/16 12:01 11/11/16 12:03 General appearance: no acute distress, thin Exam: lert and oriented oral cavity dry pupils symmetric and reactive no ear discharge head normocephalic no lymphadenopathy s1 and S2 regular. Ejection systolic murmur minimally labored breathing,basal fine crackles bdomen softnontender lower extremity- no cyanosis clubbing r joint swelling skin no suspicious lesions itPsych alert and cooperative Neuro nonfocal Medical - H&P: Reslt - Labs CBC & Chem 7: 11/12/16 04:15 11/12/16 04:15 Labs: Short CBC 11/11/16 Range/Units 09:43 WBC 15.3 H (4.5-11.0) K/mcL Hgb 8.9 L (13.5-16.5) g/dL Hct 26.9 L (41.0-55.0) % Plt Count 636 H (140-440) K/mcL BMP 11/11/16 09:42 Sodium 135 Potassium 4.2 Chloride 96 Carbon Dioxide 23 BUN 20 Creatinine 1.1 Glucose 98 Calcium 8.4 L Liver Function 11/11/16 Range/Units 09:42 Total Bilirubin 0.8 (0.0-1.0) mg/dL AST 24 (0-37) U/l ALT 15 (0-40) U/l Alkaline Phosphatase 149 H (39-117) U/L Albumin 3.4 (3.2-5.2) gm/dL Medical - H&P: A/P (1) Eosinophilic pneumonia Current visit: Yes Status: Acute * Eosinophilic pneumonia- ulmonology consult. Initiate Workup. * Dyspnea - bronchodilators/supplemental oxygenIV Solu-Medrol * anxiety disorder continue fluoxetine * Neuropathy continue gabapentin * hypertension continue valsartan * Anticoagulation on Coumadin * Full CODE STATUS plan * antibiotic coverage * Pulmonology consult * await CT chest * Eosinophilic pneumonia workup * bronchodilators * Pre-existing medical condition management as above
[2016-11-11 12:27] LABS: C-Reactive Protein 2.6 mg/dl (0.0-0.8)
[2016-11-11] MEDS ORDERED: IOPAMIDOL 100 ML BOTTLE IV ONE (12:48)
[2016-11-11] MEDS: methylPREDNISolone SOD SUCC 125 MG/2 ML VIAL IV SCH ×2 (13:24→17:32)
[2016-11-11] MEDS: LEVOFLOXACIN 750 MG/150 ML BAG IV SCH (13:58)
[2016-11-11] MEDS: 0.9 % SODIUM CHLORIDE 10 ML SYRINGE IV SCH ×2 (14:00→20:05)
[2016-11-11] MEDS: IPRATROPIUM/ALBUTEROL 3 ML AMPUL.NEB NEB SCH ×3 (16:05→22:20)
--- NOTE | 2016-11-11 18:46 | Cat Scan Report ---
CLINICAL INFORMATION: Spiculated right upper lobe density. History of multifocal pneumonia COMPARISON: 07/30/2016 and 10/28/2016. TECHNIQUE: 80 cc of Isovue-300 were injected intravenously, and 25 seconds later, 2.5 mm helical slices were obtained from the lung apices through the bases. Following reconstruction, 2.5 mm sagittal, coronal and axial reformations were processed and reviewed at lung, mediastinal and bone windows. 7 mm axial MIPS were also obtained FINDINGS: Pulmonary parenchymal windows show moderate underlying centrilobular emphysema changes. A large consolidated alveolar infiltrate throughout much of the right upper lobe with relative sparing of the anterior segment has worsened considerably since the comparison CT two weeks ago. Moderate sized consolidated infiltrate in the superior segment of the right lower lobe with extension to the peripheral posterior and lateral basilar segments of also worsened. A new small pleural-based region of consolidation has developed in the medial basilar segment of the left lower lobe. On prior study, there were spiculated inflammatory nodules in the superior and lateral basal segments of the left lower lobe, but these have nearly resolved with only groundglass density in these regions. There is a: however, a new 19 mm spiculated nodule in the anterior segment of the left upper lobe which should be inflammatory developing over this very short time course. Bandlike atelectasis in the posterior left lower lobe along the major fissure ligament demonstrates long-term stability. Patchy groundglass infiltrate throughout the remainder of the left upper lobe is otherwise stable. There are no effusions - pleural spaces are normal Mediastinal windows show the heart is mildly enlarged and there is moderately heavy fibrofatty calcific plaque in the coronary arteries. There is calcification of both mitral and aortic valves. The pulmonary arteries and thoracic aorta are unremarkable. Moderately enlarged mediastinal lymph nodes are seen, has before, and compatible with benign reactive adenopathy. Esophagus is unremarkable.. IMPRESSION: Large consolidated alveolar infiltrate throughout the posterior segment of the right upper lobe. It has progressed considerably since the exam two weeks prior. Smaller consolidated infiltrates in the superior and basilar segments of the right lower lobe have also worsened. Three, spiculated inflammatory nodules in the left lower lobe have nearly resolved with minimal underlying groundglass density. The lesion A 19 mm spiculated inflammatory nodule in the anterior segment left upper lobe is new, however. Widespread alveolar airspace disease generally progressing over the past three months particularly in the right upper and lower lobes. Diagnostic considerations should include atypical organisms which would not respond to conventional antibiotics (tuberculosis mycoplasma or fungus disease) particularly if there is a immunologic compromise (steroid and other immunosuppressive, diabetes etc.) It may also be an atypical manifestation of a collagen vascular disease such sarcoidosis. Bronchiolitis obliterans is also possible. Interpreted and Authenticated by: Hayden Stanley 11/11/16
[2016-11-11] MEDS: BUDESONIDE 0.5 MG/2 ML AMPUL.NEB NEB SCH (19:52)
[2016-11-11] MEDS: HEPARIN 5,000 UNIT/ML VIAL SQ SCH (21:40)
[2016-11-11] MEDS: DOCUSATE SODIUM 100 MG CAPSULE PO SCH (21:41)
[2016-11-11] MEDS: SENNOSIDES/DOCUSATE SODIUM 1 TAB TABLET PO SCH (21:41)
[2016-11-11] MEDS: GABAPENTIN 300 MG CAPSULE PO SCH (21:46)
[2016-11-11] MEDS: LORazepam 0.5 MG TABLET PO PRN (22:49)
[2016-11-12] MEDS: methylPREDNISolone SOD SUCC 125 MG/2 ML VIAL IV SCH ×5 (00:53→23:42)
[2016-11-12] MEDS: IPRATROPIUM/ALBUTEROL 3 ML AMPUL.NEB NEB SCH ×6 (02:03→22:18)
[2016-11-12] MEDS: 0.9 % SODIUM CHLORIDE 10 ML SYRINGE IV SCH ×3 (05:58→20:35)
[2016-11-12 06:42] LABS: Mean Cell Volume 95.7 fL (80.0-100.0); Mean Corpuscular HGB Conc 33.9 g/dL (31.0-36.0); Mean Corpuscular Hemoglobin 32.5 pg (26.0-34.0); Platelet Count 527 K/mcL (140-440); RBC 2.34 M/mcL (4.50-5.90); Red Cell Distribution Width 21.5 % (11.5-14.5)
[2016-11-12 07:10] LABS: ALT/SGPT 13 U/l (0-40); Albumin 3.2 gm/dL (3.2-5.2); Albumin/Globulin Ratio 0.9 (1.0-2.3); Alkaline Phosphatase 126 U/L (39-117); Bilirubin,Direct < 0.2 mg/dL (0.0-0.3); Blood Urea Nitrogen 29 mg/dl (8-23); Gamma Glutamyl Transpeptidase 36 U/L (8-61); Magnesium 2.1 mg/dL (1.6-2.5); Uric Acid 8.6 mg/dL (2.5-8.0)
[2016-11-12] MEDS: BUDESONIDE 0.5 MG/2 ML AMPUL.NEB NEB SCH ×2 (07:14→19:09)
[2016-11-12 07:18] LABS: Anisocytosis 2+ (NONE SEEN); Band Neutrophils % 5 % (0-10); Lymphocytes % 10 % (15-49); Monocytes % (Manual) 2 % (1-12); Ovalocytes 1+ (NONE SEEN); Platelet Estimate INCREASED (NORMAL); RBC Morphology ABNORM (NORMAL); Segmented Neutrophils % 82 % (38-78)
[2016-11-12] MEDS: DOCUSATE SODIUM 100 MG CAPSULE PO SCH ×2 (08:28→20:33)
[2016-11-12] MEDS: HEPARIN 5,000 UNIT/ML VIAL SQ SCH ×2 (08:28→20:33)
[2016-11-12] MEDS: MULTIVIT,THER IRON,CA,FA & MIN 1 TABLET PO SCH (08:28)
[2016-11-12] MEDS: LEVOFLOXACIN 750 MG/150 ML BAG IV SCH (09:30)
--- NOTE | 2016-11-12 10:27 | Internal Med Progress Note ---
Medical - PN: Subj Patient information: Note initiated : 11/12/16 at 10:24 am Service Date, if different from initiated Date: [] Patient: Benny Austin a 86 y/o M admitted on 11/11/16 for Shortness of breath. Chief Complaint: [] Interval history: 11/11-Mr. Austin is a 86 year old M with a history of recurrent pneumonia who comes to [facility] after be was found to be hypoxic at the out patient rehabilitation. Patient has been getting progressively short of breath along with nonpurulent productive sputum over the last few days. He could not sleep he previous night due to increasing dyspnea/orthopnea. He normally walks a mile a week averaging 6 blocks a day however today he could barely walk. He as been going to outpatient rehabilitation recovering after episode of pneumonia back in July. Initial workup in the ER was significant for white count of 15,000 with 24% eosinophils. Hospitalist service was consulted for admission n light of atypical pneumonia. Chest x-ray was consistent with dense infiltrates and possible underlying malignancy. However interestingly a CAT scan of the chest was performed on October 28 which showed bilateral infiltrates with a low suspicion of malignancy. However patient was not on any antibiotics and was unaware of the findings. After sputum and blood cultures patient received antibiotics in the ED. A chest CT was recommended by radiologist which was subsequently ordered. Hospitalist service was consulted. 11/12-atient doing well. White count down to 4900. OnLevaquin. pulmonology consulted. CT scan shows considerable worsening of the large right upper lobe infiltrates consistent with atypical pneumonia. Eosinophilia normalized which is an expected response to IV Solu-Medrol. atient clinically feels better. Ambulating and tolerating physical therapy. on 2.5 L oxygen. - Constitutional Vitals: Vital Signs Temp Pulse Resp BP Pulse Ox 97.4 F 90 16 127/72 98 11/12/16 07:19 11/12/16 07:14 11/12/16 07:19 11/12/16 07:19 11/12/16 07:19 Period Temp Pulse Resp BP Sys/Maldonado Pulse Ox Last 24 Hr 97.2 F-98.1 F 79-110 16-20 100-147/44-73 91-99 Intake and Output 11/11/16 11/12/16 11/12/16 21:59 05:59 13:59 Intake Total 860 / 860 630 / 630 Balance 860 / 860 630 / 630 Weight 167 lb 8 oz Intake & Output: Intake & Output 11/11/16 11/12/16 11/12/16 21:59 05:59 13:59 Intake Total 860 / 860 630 / 630 Balance 860 / 860 630 / 630 Weight 167 lb 8 oz Intake: IV 150 / 150 Oral 860 / 860 480 / 480 Other: Meal Dinner Percent of Meal Consumed 100% Feeding Ability Assist with Tray Set Up # Voids 1 General appearance: cooperative, no acute distress Exam: alert oriented nonlabored breathing Abdomen distended nondistended Bronchial breath sounds with fine late Inspiratory crackles right posterior chest no anxiety Medical - PN: Obj Da - Labs CBC & Chem 7: 11/12/16 04:15 11/12/16 04:15 Labs: Abnormal Lab Results 11/12/16 11/12/16 04:15 04:15 RBC 2.34 L Hgb 7.6 L Hct 22.4 L RDW 21.5 H Plt Count 527 H Seg Neutrophils % 82 H Lymphocytes % 10 L Platelet Estimate Increased A RBC Morphology Abnorm A Anisocytosis 2+ A Ovalocytes 1+ A RBC Fragments Few A BUN 29 H Glucose 204 H Uric Acid 8.6 H Calcium 8.3 L Alkaline Phosphatase 126 H Albumin/Globulin Ratio 0.9 L Meds: Medications Acetaminophen (Tylenol) 650 mg PO Q4-6HP PRN PRN Reason: PAIN/FEVER > 101 Albuterol/Ipratropium (Duoneb) 3 ml NEB Q4HRT [facility] Last Admin: 11/12/16 07:14 Dose: 3 ml Budesonide (Pulmicort) 0.5 mg NEB Q12 [facility] Last Admin: 11/12/16 07:14 Dose: 0.5 mg Docusate Sodium (Colace) 100 mg PO BID [facility] Last Admin: 11/12/16 08:28 Dose: 100 mg Gabapentin (Neurontin) 600 mg PO HS [facility] Last Admin: 11/11/16 21:46 Dose: 600 mg Guaifenesin/Codeine Phosphate (Robitussin Ac) 10 ml PO Q4HP PRN PRN Reason: Cough Heparin Sodium (Porcine) (Heparin) 5,000 unit SQ Q12 [facility] Last Admin: 11/12/16 08:28 Dose: 5,000 unit Levofloxacin (Levaquin) 750 mg in 150 mls @ 100 mls/hr IV Q24H [facility] Last Admin: 11/12/16 09:30 Dose: 100 mls/hr Magnesium Sulfate (Magnesium Sulfate) 2 gm in 50 mls @ 50 mls/hr IV UD PRN PRN Reason: MG = or < 1.7 Acetaminophen (Ofirmev) 1,000 mg in 100 mls @ 200 mls/hr IV Q6HP PRN PRN Reason: PAIN/FEVER > 101 Iron Carb/Multivit/Administrative Hearing Officer/Folic Acid (Multivitamin W/Minerals) 1 tab PO DAILY [facility] Last Admin: 11/12/16 08:28 Dose: 1 tab Lorazepam (Ativan) 0.5 mg PO HSP PRN PRN Reason: Insomnia Last Admin: 11/11/16 22:49 Dose: 0.5 mg Methylprednisolone Sodium Succinate (Solu-Medrol) 60 mg IV Q6 [facility] Last Admin: 11/12/16 05:58 Dose: 60 mg Ondansetron HCl (Zofran) 4 mg IV Q4-6HP PRN PRN Reason: Nausea And Vomiting Potassium Chloride (Klor-Con) 40 meq PO DAILYP PRN PRN Reason: K+ < 3.5 Senna/Docusate Sodium (Senna Plus Tablet) 1 tab PO HS [facility] Last Admin: 11/11/16 21:41 Dose: Not Given Sodium Chloride (Saline Flush) 10 ml IV Q8 [facility] Last Admin: 11/12/16 05:58 Dose: 10 ml Trazodone HCl (Desyrel) 50 mg PO HSP PRN PRN Reason: Insomnia Medical - PN: A/P - Time Spent With Patient Total time spent is greater than 50% in coordination of care (as documented) at patient's floor/unit and/or counseling patient: 25 - 35 minutes (1) Eosinophilic pneumonia Status: Acute Assessment and plan: * Eosinophilic pneumonia- Pulmonology consulted. clinically improving dramatic response to steroids. 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 * Dyspnea - bronchodilators/supplemental oxygen, IV Solu-Medrol * Anxiety disorder continue fluoxetine * Neuropathy continue gabapentin * Hypertension continue valsartan * Anticoagulation on Coumadin * Full CODE STATUS plan * Antibiotic coverage * await pulmonology recommendations * Eosinophilic pneumonia workup * bronchodilators * Pre-existing medical condition management as above Current Visit: Yes Medical - PN: Qual - VTE Deep Vein Thrombosis/Pulmonary Embolism Present on Admission: No
--- NOTE | 2016-11-12 12:50 | Consultation ---
DATE OF CONSULTATION: 11/11/2016 REASON FOR CONSULTATION: The patient is an 86-year-old male who presented to the hospital with a chief complaint of shortness of breath. Radiographic evaluation demonstrated significant pulmonary infiltrates, and he was admitted for further evaluation and care. Consultation was placed to Pulmonary regarding a 24% eosinophil count. HISTORY: Unfortunately, the patient is a fairly vague historian. History is provided by he and his who is at the bedside. It appears that he has had some kind of lung trouble for a period of time, having seen Dr. Alvarado about 3 years ago and by his report apparently having a bronchoscopy at that time. Review of the medical records show variably elevated eosinophil counts going back for 3 years. [place] He denies jenna or industrial occupations or exposures. He denies symptomatic gastroesophageal reflux disease. He states he was checked for tuberculosis, history is vague, but apparently it was negative at some point in time in the past. He denies unusual pets, plants, or birds in the home. He denies unusual travel. He denies symptomatic gastroesophageal reflux disease, but his at the bedside suggests that some radiographic evaluations were done which indicated that he was aspirating some food particles, and he was given instructions on eating. He is apparently unaware of his aspiration episodes. He tends to sleep on his right side because he had a repair of a left hip fracture, although she states she does find him on his left side or supine occasionally. Past surgical history is largely orthopedic, as well as a herniorrhaphy. Medical issues include having had rheumatic fever at a young age which apparently kept him out of the for the [employer]. He has been on Coumadin anticoagulation for a TIA/CVA and has intermittent atrial fibrillation. The indicates that he occasionally has some dependent edema but not significantly so. The records would indicate a pleural effusion and thoracentesis 3 or 4 years ago that demonstrated transudative fluid at that time. A pulmonary function study test done 09/11/2012 indicated severe emphysematous chronic obstructive pulmonary disease. The patient having smoked for at least 60 pack-years, perhaps more, having quit 3 to 4 years ago. The patient apparently had significant ethanol consumption, largely beer, through his younger years and into his adult life. His would suggest a 6-pack a day or thereabouts on average, but he has been dry for some time. The patient denies cough or purulent sputum, occasionally coughs up some darker sputum which he states is usually after he has had coffee. REVIEW OF SYSTEMS: System review is attempted but is not considered reliable. The patient is focused on what sounds like a neuropathic pain in his metatarsal-plantar area of his right lower extremity. The indicates that this has been investigated extensively and is thought to be a neuropathy. PHYSICAL EXAMINATION: GENERAL: This is a quite talkative and pleasant gentleman who does not cough during the course of the history and physical examination. HEENT: Head is atraumatic and normocephalic. Eyes ELENA, EOMI. Sclera and conjunctiva clear. Mouth and pharynx are benign. NECK: The neck is supple. The carotids are without apparent bruits, but he cooperates poorly holding his breath. LUNGS: The lungs have decreased breath sounds throughout with coarse interstitial crackles, more so in the right lung and in the right base. HEART: The heart is regular at this time. S1, S2, without gallop, rub, jugular-venous distention. There is no dependent edema. ABDOMEN: The abdomen is soft. Bowel sounds are present. Liver and spleen are not palpable. MUSCULOSKELETAL: Bones, joints and extremities are without acute changes. NEUROLOGIC: Neurologic exam is nonfocal. LABORATORY DATA: Laboratory data includes a white count which remarkably improved from presentation to 4.5 today on Levaquin antibiotic plus 125 mg of solumedrol. RADIOGRAPHIC STUDIES: CT scan approximately 2 weeks ago and today shows significant progression of his pulmonary infiltrates and a new density in the left upper lung field called spiculated, but this would appear to be inflammatory given its time course. ASSESSMENT AND PLAN: The patient received a dose of steroids in the emergency room and is asymptomatic essentially today. Eosinophil count has resolved. White count is resolved. Given the radiographic time course of this process, it is likely largely inflammatory, whether an eosinophilic syndrome or more rheumatologic syndrome. Agree with continuing steroids at this point in time and his current antibiotic therapy, and we will see how this course progresses over time. Case is discussed with Dr. Guzman, and I will follow with. I will be out of town for the weekend unfortunately. GABY:west Job ID: [id number] Doc ID: [id number] Carlos Fry MD [facility]
[2016-11-12] MEDS: GABAPENTIN 300 MG CAPSULE PO SCH (20:33)
[2016-11-12] MEDS: traZODone HCL 50 MG TABLET PO PRN (20:33)
[2016-11-12] MEDS: SENNOSIDES/DOCUSATE SODIUM 1 TAB TABLET PO SCH (20:35)
[2016-11-12] MEDS: LORazepam 0.5 MG TABLET PO PRN (22:34)
[2016-11-13] MEDS: IPRATROPIUM/ALBUTEROL 3 ML AMPUL.NEB NEB SCH ×6 (02:59→22:22)
[2016-11-13] MEDS: methylPREDNISolone SOD SUCC 125 MG/2 ML VIAL IV SCH (05:41)
[2016-11-13] MEDS: 0.9 % SODIUM CHLORIDE 10 ML SYRINGE IV SCH ×3 (05:41→21:26)
[2016-11-13 06:36] LABS: Mean Cell Volume 96.2 fL (80.0-100.0); Mean Corpuscular HGB Conc 33.7 g/dL (31.0-36.0); Mean Corpuscular Hemoglobin 32.4 pg (26.0-34.0); Platelet Count 665 K/mcL (140-440); RBC 2.56 M/mcL (4.50-5.90); Red Cell Distribution Width 20.7 % (11.5-14.5)
[2016-11-13 07:02] LABS: ALT/SGPT 15 U/l (0-40); Albumin 3.4 gm/dL (3.2-5.2); Albumin/Globulin Ratio 0.9 (1.0-2.3); Alkaline Phosphatase 118 U/L (39-117); Bilirubin,Direct < 0.2 mg/dL (0.0-0.3); Blood Urea Nitrogen 34 mg/dl (8-23); Gamma Glutamyl Transpeptidase 39 U/L (8-61); Magnesium 2.3 mg/dL (1.6-2.5); Uric Acid 8.9 mg/dL (2.5-8.0)
[2016-11-13 07:50] LABS: Anisocytosis 1+ (NONE SEEN); Band Neutrophils % 6 % (0-10); Lymphocytes % 7 % (15-49); Monocytes % (Manual) 9 % (1-12); Ovalocytes 1+ (NONE SEEN); Platelet Estimate INCREASED (NORMAL); RBC Morphology ABNORM (NORMAL); Segmented Neutrophils % 78 % (38-78); Tear Drop Cells 1+ (NONE SEEN)
[2016-11-13] MEDS: BUDESONIDE 0.5 MG/2 ML AMPUL.NEB NEB SCH ×2 (08:12→19:19)
[2016-11-13] MEDS: MULTIVIT,THER IRON,CA,FA & MIN 1 TABLET PO SCH (08:35)
[2016-11-13] MEDS: DOCUSATE SODIUM 100 MG CAPSULE PO SCH ×2 (08:35→21:04)
[2016-11-13] MEDS: HEPARIN 5,000 UNIT/ML VIAL SQ SCH (08:35)
[2016-11-13] MEDS: LEVOFLOXACIN 750 MG/150 ML BAG IV SCH (08:36)
[2016-11-13] MEDS: 0.9 % SODIUM CHLORIDE 1,000 ML IV SCH ×2 (11:30→21:04)
--- NOTE | 2016-11-13 13:05 | Internal Med Progress Note ---
Medical - PN: Subj Patient information: Note initiated : 11/13/16 at 12:32 pm Service Date, if different from initiated Date: [] Patient: Benny Austin a 86 y/o M admitted on 11/11/16 for Shortness of Breath/Eosinophilic Pneumonia. Chief Complaint: [] Interval history: 11/11-Mr. Austin is a 86 year old M with a history of recurrent pneumonia who comes to [facility] ER after be was found to be hypoxic at the out patient rehabilitation. Patient has been getting progressively short of breath along with nonpurulent productive sputum over the last few days. He could not sleep he previous night due to increasing dyspnea/orthopnea. He normally walks a mile a week averaging 6 blocks a day however today he could barely walk. He as been going to outpatient rehabilitation recovering after episode of pneumonia back in July. Initial workup in the ER was significant for white count of 15,000 with 24% eosinophils. Hospitalist service was consulted for admission n light of atypical pneumonia. Chest x-ray was consistent with dense infiltrates and possible underlying malignancy. However interestingly a CAT scan of the chest was performed on October 28 which showed bilateral infiltrates with a low suspicion of malignancy. However patient was not on any antibiotics and was unaware of the findings. After sputum and blood cultures patient received antibiotics in the ED. A chest CT was recommended by radiologist which was subsequently ordered. Hospitalist service was consulted. 11/12-atient doing well. White count down to 4900. OnLevaquin. pulmonology consulted. CT scan shows considerable worsening of the large right upper lobe infiltrates consistent with atypical pneumonia. Eosinophilia normalized which is an expected response to IV Solu-Medrol. atient clinically feels better. Ambulating and tolerating physical therapy. on 2.5 L oxygen. 11/13: Patient seen and examined, labs reviwed, chart reviewed, the patient was admitted to the hospital with concerns for pna likely inflammatory/ infectious in etiology, of concern was the fact that the patient has had peripheral eosinophilia. The patient has had h/o eosinophils in the past also has MDS/ MPF with RARS-T syndrome and follows with Dr Bland, Oncologist, he also had had elevated free light chains in the past. The patient has undergone bronchoscopy [place] [address] Alvarado for starla pna which were unremarkable. The aptient has chr copd with stable oxygen needs. and overall feels better. Given that the oncologist felt that eosinophila was related to his MDS-MPF syndrome, cut back to prendnisone 40mg continue with antibiotics and monitor. The patient has follow up appointment with Dr Bland on His lab work shows low sodium and rising creat, IV fluids started Patient is very eager to go home, however reluctantly stayed back after his and daughter asked him to. Pertinent ROS: Denies headache, dizziness Denies chest pain, palpitations Denies cough or shortness of breath Denies abdominal pain, nausea or vomiting. - Constitutional Vitals: Vital Signs Temp Pulse Resp BP Pulse Ox 97.7 F 93 H 20 131/68 94 11/13/16 11:44 11/13/16 08:14 11/13/16 11:44 11/13/16 11:44 11/13/16 11:44 Period Temp Pulse Resp BP Sys/Maldonado Pulse Ox Last 24 Hr 97.5 F-98.6 F 88-98 16-20 100-139/59-75 91-97 Intake and Output 11/12/16 11/13/16 11/13/16 21:59 05:59 13:59 Intake Total 500 / 500 500 / 500 150 / 150 Balance 500 / 500 500 / 500 150 / 150 Weight 169 lb Intake & Output: Intake & Output 11/12/16 11/13/16 11/13/16 21:59 05:59 13:59 Intake Total 500 / 500 500 / 500 150 / 150 Balance 500 / 500 500 / 500 150 / 150 Weight 169 lb Intake: IV 150 / 150 Oral 500 / 500 500 / 500 Other: Meal Dinner Percent of Meal Consumed 100% Feeding Ability Independent # Voids 1 1 # Bowel Movements 1 Exam: GENERAL: The patient is a well-developed, well-nourished in no apparent distress. Is alert and oriented x3. VITAL SIGNS: Reviewed and as noted elsewhere. HEENT: Head is normocephalic and atraumatic. Extraocular muscles are intact. Pupils are equal, round, and reactive to light. Nares appeared normal. Mouth appears any without lesions. Mucous membranes are moist. NECK: Normal to inspection, Supple, No lymphadenopathy or thyromegaly. LUNGS: Air entry equal on both sides, no wheezing, crackles or rhonchi noted. No accessory muscles of respiration HEART: irregular rate and rhythm normal, S1 and S2 heard, no Gallop, S3 or Rub Noted, No Gross murmur heard. ABDOMEN: Soft, nontender, and nondistended. Positive bowel sounds. No hepatosplenomegaly was noted. EXTREMITIES: No cyanosis, clubbing, rash, lesions or edema. NEUROLOGIC: Cranial nerves II through XII are grossly intact. Motor and Sensory System Grossly Intact PSYCHIATRIC: Normal affect, Normal Mood. Appropriate Behavior. SKIN: No ulceration or wounds noted, No jaundice, No rash noted. Medical - PN: Obj Da - Labs CBC & Chem 7: 11/13/16 04:26 11/13/16 04:26 Labs: Abnormal Lab Results 11/13/16 11/13/16 11/12/16 04:26 04:26 04:15 RBC 2.56 L Hgb 8.3 L Hct 24.6 L RDW 20.7 H Plt Count 665 H Seg Neutrophils % Lymphocytes % 7 L Platelet Estimate Increased A RBC Morphology Abnorm A Anisocytosis 1+ A Tear Drop Cells 1+ A Ovalocytes 1+ A RBC Fragments 1+ A Sodium 130 L Chloride 95 L Carbon Dioxide 20 L BUN 34 H 29 H Creatinine 1.3 H Glucose 168 H 204 H Uric Acid 8.9 H 8.6 H Calcium 8.3 L Alkaline Phosphatase 118 H 126 H Albumin/Globulin Ratio 0.9 L 0.9 L 11/12/16 04:15 RBC 2.34 L Hgb 7.6 L Hct 22.4 L RDW 21.5 H Plt Count 527 H Seg Neutrophils % 82 H Lymphocytes % 10 L Platelet Estimate Increased A RBC Morphology Abnorm A Anisocytosis 2+ A Tear Drop Cells Ovalocytes 1+ A RBC Fragments Few A Sodium Chloride Carbon Dioxide BUN Creatinine Glucose Uric Acid Calcium Alkaline Phosphatase Albumin/Globulin Ratio Meds: Medications Acetaminophen (Tylenol) 650 mg PO Q4-6HP PRN PRN Reason: PAIN/FEVER > 101 Last Admin: 11/12/16 20:34 Dose: 650 mg Albuterol/Ipratropium (Duoneb) 3 ml NEB Q4HRT [facility] Last Admin: 11/13/16 11:36 Dose: Not Given Budesonide (Pulmicort) 0.5 mg NEB Q12 [facility] Last Admin: 11/13/16 08:12 Dose: 0.5 mg Docusate Sodium (Colace) 100 mg PO BID [facility] Last Admin: 11/13/16 08:35 Dose: 100 mg Gabapentin (Neurontin) 600 mg PO HS [facility] Last Admin: 11/12/16 20:33 Dose: 600 mg Guaifenesin/Codeine Phosphate (Robitussin Ac) 10 ml PO Q4HP PRN PRN Reason: Cough Heparin Sodium (Porcine) (Heparin) 5,000 unit SQ Q12 [facility] Last Admin: 11/13/16 08:35 Dose: 5,000 unit Levofloxacin (Levaquin) 750 mg in 150 mls @ 100 mls/hr IV Q24H [facility] Last Infusion: 11/13/16 10:20 Dose: Infused Magnesium Sulfate (Magnesium Sulfate) 2 gm in 50 mls @ 50 mls/hr IV UD PRN PRN Reason: MG = or < 1.7 Acetaminophen (Ofirmev) 1,000 mg in 100 mls @ 200 mls/hr IV Q6HP PRN PRN Reason: PAIN/FEVER > 101 Sodium Chloride (Sodium Chloride 0.9%) 1,000 mls @ 100 mls/hr IV .Q10H [facility] Stop: 11/14/16 16:14 Last Admin: 11/13/16 11:30 Dose: 100 mls/hr Iron Carb/Multivit/Shipping Hand/Folic Acid (Multivitamin W/Minerals) 1 tab PO DAILY [facility] Last Admin: 11/13/16 08:35 Dose: 1 tab Lorazepam (Ativan) 0.5 mg PO HSP PRN PRN Reason: Insomnia Last Admin: 11/12/16 22:34 Dose: 0.5 mg Ondansetron HCl (Zofran) 4 mg IV Q4-6HP PRN PRN Reason: Nausea And Vomiting Potassium Chloride (Klor-Con) 40 meq PO DAILYP PRN PRN Reason: K+ < 3.5 Senna/Docusate Sodium (Senna Plus Tablet) 1 tab PO HS [facility] Last Admin: 11/12/16 20:35 Dose: Not Given Sodium Chloride (Saline Flush) 10 ml IV Q8 [facility] Last Admin: 11/13/16 05:41 Dose: 10 ml Trazodone HCl (Desyrel) 50 mg PO HSP PRN PRN Reason: Insomnia Last Admin: 11/12/16 20:33 Dose: 50 mg Medical - PN: A/P - Time Spent With Patient Total time spent is greater than 50% in coordination of care (as documented) at patient's floor/unit and/or counseling patient: - Narrative A/P Narrative: a/p Pneumonia: Eosniophilic PNA? Infectious vs inflammatory, peripheral eosinophilia likely from MDS has now resolved after steroids, however given possible inflammatory nature of PNA and the possibility of eosinophilic pna, continue steroids, but change IV to oral prednisone at 40mg qd. The patient will continue treatment for 2 weeks after X Ray is clear and then a taper down. This can be done as outpatient with Dr Fry. 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 Acute kidney injury- IV fluids for now, monitor renal function in AM Hyponatremia: IV saline, monitor, na 130 at this time, if worsens initiate workup. Neuropathy: On neurontin continue same Afib: rate controlled on anticoagulation, INR sub therapuetic, but coumadin was held, resume same. DVT hep sq, hold once INR is therapeutic Full code Medical - PN: Qual - VTE Deep Vein Thrombosis/Pulmonary Embolism Present on Admission: No
[2016-11-13] MEDS ORDERED: traMADol 50 MG TABLET PO PRN (13:22)
[2016-11-13] MEDS ORDERED: LORazepam (PP) 1 MG TABLET (#4) PO PRN (13:22)
[2016-11-13] MEDS ORDERED: BUDESONIDE 0.5 MG/2 ML AMPUL.NEB NEB SCH (13:30)
[2016-11-13] MEDS ORDERED: WARFARIN 2.5 MG TABLET PO ONE (15:30)
[2016-11-13] MEDS ORDERED: GABAPENTIN 300 MG CAPSULE PO SCH (21:00)
[2016-11-13] MEDS: GABAPENTIN 300 MG CAPSULE PO SCH (21:02)
[2016-11-13] MEDS: SENNOSIDES/DOCUSATE SODIUM 1 TAB TABLET PO SCH (21:03)
[2016-11-13] MEDS: traZODone HCL 50 MG TABLET PO PRN (21:04)
[2016-11-13] MEDS: FLUTICASONE PROPIONATE SPRAY.NAS NS SCH (21:25)
[2016-11-14] MEDS: IPRATROPIUM/ALBUTEROL 3 ML AMPUL.NEB NEB SCH ×3 (03:18→11:13)
[2016-11-14] MEDS: 0.9 % SODIUM CHLORIDE 10 ML SYRINGE IV SCH ×2 (05:12→13:08)
[2016-11-14 06:12] LABS: Mean Cell Volume 95.9 fL (80.0-100.0); Mean Corpuscular HGB Conc 33.1 g/dL (31.0-36.0); Mean Corpuscular Hemoglobin 31.8 pg (26.0-34.0); Platelet Count 597 K/mcL (140-440); RBC 2.41 M/mcL (4.50-5.90); Red Cell Distribution Width 20.8 % (11.5-14.5)
[2016-11-14 06:52] LABS: ALT/SGPT 24 U/l (0-40); Albumin 3.1 gm/dL (3.2-5.2); Albumin/Globulin Ratio 1.1 (1.0-2.3); Alkaline Phosphatase 92 U/L (39-117); Bilirubin,Direct < 0.2 mg/dL (0.0-0.3); Blood Urea Nitrogen 36 mg/dl (8-23); Gamma Glutamyl Transpeptidase 50 U/L (8-61); Magnesium 2.4 mg/dL (1.6-2.5); Uric Acid 8.2 mg/dL (2.5-8.0)
[2016-11-14 07:28] LABS: Anisocytosis 1+ (NONE SEEN); Band Neutrophils % 4 % (0-10); Lymphocytes % 4 % (15-49); Monocytes % (Manual) 7 % (1-12); Ovalocytes 1+ (NONE SEEN); Platelet Estimate INCREASED (NORMAL); RBC Morphology ABNORM (NORMAL); Segmented Neutrophils % 85 % (38-78)
[2016-11-14] MEDS: MULTIVIT,THER IRON,CA,FA & MIN 1 TABLET PO SCH (07:41)
[2016-11-14] MEDS: DOCUSATE SODIUM 100 MG CAPSULE PO SCH (07:41)
[2016-11-14] MEDS: GABAPENTIN 300 MG CAPSULE PO SCH ×2 (07:41→11:23)
[2016-11-14] MEDS: 0.9 % SODIUM CHLORIDE 1,000 ML IV SCH (07:42)
[2016-11-14] MEDS: FLUTICASONE PROPIONATE SPRAY.NAS NS SCH (07:44)
[2016-11-14] MEDS ORDERED: predniSONE 20 MG TABLET PO SCH ×2 (08:00)
[2016-11-14] MEDS: BUDESONIDE 0.5 MG/2 ML AMPUL.NEB NEB SCH (08:07)
[2016-11-14] MEDS ORDERED: ASPIRIN 81 MG TAB.CHEW PO SCH (09:00)
--- NOTE | 2016-11-14 11:34 | Discharge Summary ---
Medical - DS: Prov Patient information: Note initiated : 11/14/16 at 11:32 am Service Date, if different from initiated Date: [] Patient: Benny Austin 86 y/o M admitted on 11/11/16 for Shortness of Breath/Eosinophilic Pneumonia. Chief Complaint: [] Date of admission: 11/11/16 12:42 Discharge date: 11/14/16 Primary care physician: Gaviota Mercedes Admitting clinician: Thomas Griffin Discharging clinician: Jackelyn Sesay Medical - DS: Meds - Discharge Medications Prescriptions: Levofloxacin [Levaquin] 500 mg PO DAILY #5 tablet predniSONE [Prednisone] 40 mg PO DAILY #60 tablet Active and Home Medications: Home Medications albuterol sulfate HFA 90 mcg/actuation aerosol inhaler 2 puff INHALATION .COMPLEX g 09/02/14 [History Confirmed 11/11/16 Last Taken 11/11/16 2 PUFFS] aspirin 81 mg chewable tablet 81 mg PO QDAY tab 09/02/14 [History Confirmed Last Taken 11/10/16 81 MG.] budesonide 0.5 mg/2 mL suspension for nebulization 0.5 mg INHALATION Q12H ml [History Confirmed 11/11/16 Last Taken 11/11/16 0.5 MG.] calcium carbonate 500 mg (1,250 mg)-vitamin D3 125 unit tablet 1 tab PO TID tab 09/02/14 [History Confirmed 11/11/16 Last Taken 11/10/16 1250 MG.] Meclizine [Antivert] 25 mg PO TIDP PRN #20 tab 04/28/15 [Rx Confirmed 11/11/16 Last Taken Unknown] traMADol [Ultram] 50 mg PO Q6HP PRN 09/06/15 [History Confirmed 11/11/16 Last Taken Unknown] fluticasone 50 mcg/actuation nasal spray,suspension 2 spray INTRANASAL BID #16 g 04/02/16 [Rx Confirmed 11/11/16 Last Taken Unknown] lorazepam 1 mg tablet 0.5 mg PO QHS PRN 30 Days 09/29/16 [Rx Confirmed 11/11/16 Last Taken 11/04/16 0.5 MG.] cholecalciferol (vitamin D3) 2,000 unit capsule 2,000 unit PO QDAY #30 cap 10/08 [Rx Confirmed 11/11/16 Last Taken 11/10/16 2000 UNITS] losartan 100 mg tablet 100 mg PO QDAY #90 tab 10/18/16 [Rx Confirmed 11/11/16 Last Taken 11/10/16 100 MG.] warfarin 5 mg tablet See Dose Instructions PO QDAY #60 tab 11/08/16 [Rx Confirmed 11/11/16 Last Taken 11/10/16 5 MG.] Gabapentin [Neurontin] 300 mg PO DAILY 11/11/16 [History Confirmed 11/11/16 Last Taken 11/11/16 300 MG.] Gabapentin [Neurontin] 600 mg PO HS 11/11/16 [History Confirmed 11/11/16 Last Taken 11/11/16 600 MG.] Medical - DS: Hosp Hospital course: Mr. Austin is a 86 year old M with a history of recurrent pneumonia who comes to [facility] ER after be was found to be hypoxic at the out patient rehabilitation. Patient has been getting progressively short of breath along with nonpurulent productive sputum over the last few days. He could not sleep he previous night due to increasing dyspnea/orthopnea. He normally walks a mile a week averaging 6 blocks a day however today he could barely walk. He as been going to outpatient rehabilitation recovering after episode of pneumonia back in July. Initial workup in the ER was significant for white count of 15,000 with 24% eosinophils. Hospitalist service was consulted for admission n light of atypical pneumonia. Chest x-ray was consistent with dense infiltrates and possible underlying malignancy. However interestingly a CAT scan of the chest was performed on October 28 which showed bilateral infiltrates with a low suspicion of malignancy. However patient was not on any antibiotics and was unaware of the findings. After sputum and blood cultures patient received antibiotics in the ED. A chest CT was done which showed significant infiltrates , infectious vs inflammatory in nature. The patient was started on IV antibiotics as well as IV steroids and pulmonary was consulted. The patient responded to the treatment remarkablly and by the next day he was nearly back to baseline. His Eosinophil count was back to normal. Pulmonary did not do a bronchoscopy but were ok with continued steroid treatment. The patient has had h/o Bronchoscopy in the past by Dr Alvarado and it seems that the results were neg for eosniophils then nonethe less given dramatic response to the steroids the patient will be discharged home on po prednisone 40mg qd. The patient will continue steroids for 2 weeks after radiological or as per the directions of the director channel. I have given his prescription to last a month, the patient will need ongoing prescriptions and a taper plan which can be decided by his director channel.The patients workup for autoimmune disease as a etiology is pending and can be followed up by pulmonary. The patient has chr anemia,MDS RAST syndrome, Follows with Dr Bland for same. He has follow up next week. During the hospital stay there was a mild bump in the patients creatinine to 1.4 , this will need to be followed up by the patients primary care physician. I would recommended checking his Basic panel in approximately a week to check his renal function. Discharge diagnosis: Pneumonia Eosinophilic? - Time Spent with Patient Total time spent providing and/or coordinating discharge services: Greater than 30 minutes Medical - DS: Exam - Constitutional Vitals: Vital Signs Temp Pulse Pulse Resp BP BP Pulse Ox 11/14/16 11:16 84 18 11/14/16 08:11 75 16 11/14/16 08:09 78 18 98 11/14/16 08:00 98 11/14/16 07:04 98.2 F 20 151/72 92 11/14/16 03:49 98.4 F 86 116/64 92 11/13/16 23:07 98.6 F 91 H 123/66 93 11/13/16 22:28 87 16 11/13/16 19:37 98.8 F 93 H 138/74 96 11/13/16 19:28 84 16 11/13/16 19:19 95 11/13/16 15:41 97.4 F 18 131/74 95 11/13/16 15:08 90 16 11/13/16 15:04 94 11/13/16 11:44 97.7 F 20 131/68 94 Intake and Output 11/13/16 11/14/16 11/14/16 21:59 05:59 13:59 Intake Total 1737 / 1737 1840 / 1840 Output Total / Balance 1737 / 1737 -2 / -2 183 / 1839 Intake: IV 957 / 957 1000 / 1000 Sodium Chloride 0.9% 1, 957 / 957 1000 / 1000 000 ml @ 100 mls/hr IV . Q10H [facility] Rx#:[id number] Oral 780 / 780 840 / 840 Output: Void Amount / 2 Other: Meal Dinner Breakfast Percent of Meal Consumed 75% 75% Feeding Ability Independent # Voids 2 1 1 # Bowel Movements 1 1 Weight 174 lb 8 oz Additional comments: Constitutional; Afebrile, cooperative, alert, not in distress. Eyes- No icterus, , No periorbital swelling Ears- Ext ear normal, Neck- Midline trachea, supple Respiratory system: Air Entry equal on both sides, No crackles or wheezing, no rhonchi. CVS- Rate rhythm irregular, S1,S2 heard, no gallop, no rub. Abdomen- Soft nontender abdomen, no organomegaly, no tenderness, no guarding or rigidity, SOAP DRIER TENDER- AOOx3, moving all extremities, no gross focal deficit noted. Medical - DS: Data Procedures and tests throughout hospitalization: CXR chest IMPRESSION: 10 cm stellate mass, involving the suprahilar region of the right upper lobe, highly suspicious for primary lung carcinoma. Possible vague metastases in the remaining lungs. Consider repeat chest CT CT Chest IMPRESSION: Large consolidated alveolar infiltrate throughout the posterior segment of the right upper lobe. It has progressed considerably since the exam two weeks prior. Smaller consolidated infiltrates in the superior and basilar segments of the right lower lobe have also worsened. Three, spiculated inflammatory nodules in the left lower lobe have nearly resolved with minimal underlying groundglass density. The lesion A 19 mm spiculated inflammatory nodule in the anterior segment left upper lobe is new, however. Widespread alveolar airspace disease generally progressing over the past three months particularly in the right upper and lower lobes. Diagnostic considerations should include atypical organisms which would not respond to conventional antibiotics (tuberculosis mycoplasma or fungus disease) particularly if there is a immunologic compromise (steroid and other immunosuppressive, diabetes etc.) It may also be an atypical manifestation of a collagen vascular disease such sarcoidosis. Bronchiolitis obliterans is also possible. Labs on day of discharge: Labs from last 24 hours 11/14/16 11/14/16 11/14/16 04:38 04:38 04:38 WBC 13.1 H RBC 2.41 L Hgb 7.6 L Hct 23.1 L MCV 95.9 MCH 31.8 MCHC 33.1 RDW 20.8 H Plt Count 597 H MPV 8.3 Total Counted 100 Seg Neutrophils % 85 H Band Neutrophils % 4 Lymphocytes % 4 L Monocytes % (Manual) 7 Nucleated RBCs 1 H Platelet Estimate Increased A RBC Morphology Abnorm A Anisocytosis 1+ A Ovalocytes 1+ A RBC Fragments Few A Smear Path Review PT 25.9 H INR 2.3 H Sodium 133 Potassium 4.3 Chloride 101 Carbon Dioxide 23 Anion Gap 9.0 BUN 36 H Creatinine 1.4 H GFR Calculation 45 Glucose 90 Uric Acid 8.2 H Calcium 7.9 L Phosphorus 3.3 Magnesium 2.4 Total Bilirubin 0.5 Direct Bilirubin < 0.2 GGT 50 AST 28 ALT 24 Alkaline Phosphatase 92 Lactate Dehydrogenase 215 Total Protein 6.0 Albumin 3.1 L Globulin 2.9 Albumin/Globulin Ratio 1.1 Triglycerides 137 11/13/16 11/13/16 14:03 04:26 WBC RBC Hgb Hct MCV MCH MCHC RDW Plt Count MPV Total Counted Seg Neutrophils % Band Neutrophils % Lymphocytes % Monocytes % (Manual) Nucleated RBCs Platelet Estimate RBC Morphology Anisocytosis Ovalocytes RBC Fragments Smear Path Review PT 24.5 H INR 2.1 H Sodium Potassium Chloride Carbon Dioxide Anion Gap BUN Creatinine GFR Calculation Glucose Uric Acid Calcium Phosphorus Magnesium Total Bilirubin Direct Bilirubin GGT AST ALT Alkaline Phosphatase Lactate Dehydrogenase Total Protein Albumin Globulin Albumin/Globulin Ratio Triglycerides Medical - DS: A/P - Patient/Caregiver Discharge Instructions Activity: ambulate only with your walker, increase activity as tolerated Diet: Cardiac Additional Instructions: Take antibiotics levofloxacin for 5 more days Take prednisone 40mg ( 2 tabs of 20) with food once daily till your lung doctor asks you to stop. Follow up with your Lung doctor Dr Fry and Your Electromedical Equipment Technician Dr Bland next week Follow up with PCP in 1 week You need to have your blood work checked in one week to ensure that your kidneys are working well. Your primary care doctor can order the test. Keep yourself well hydrated. Go to the ER if any worsening symptoms or any new concerns. No changes in your home medication list has been done. Only added 2 meds one antibiotics and other steroid as mentioned above. Prescriptions: Levofloxacin [Levaquin] 500 mg PO DAILY #5 tablet predniSONE [Prednisone] 40 mg PO DAILY #60 tablet - Follow up Plan Follow up with: Gaviota Mercedes DNP, APPLIED PSYCHOLOGY PROFESSOR [Primary Care Provider] - 11/19/16 9:30 am Disposition: Home, Self-Care Prognosis: Fair Rehab Potential: Fair I certify that the patient requires SNF services: No Overall status at discharge: patient is progressing back to baseline Medical - DS: Qual - VTE Deep Vein Thrombosis/Pulmonary Embolism Present on Admission: No
[2016-11-14] MEDS ORDERED: WARFARIN 2.5 MG TABLET PO ONE (14:00)
[2016-11-15] MEDS ORDERED: LEVOFLOXACIN 750 MG/150 ML BAG IV SCH (09:00)
[2016-11-18 11:25] LABS: ANCA Screen NEGATIVE (NEGATIVE); Myeloperoxidase Antibody <1.0 AI (<1.0)
== END 2016-11-14 13:48 | disposition home or self-care (01) | DRG 198 ==
LOC: ED 09:15 → MEDSUR 12:42
PROVIDERS: ADMIT Internal Medicine; ATTEND Internal Medicine

== ENCOUNTER 2017-05-18 08:07 | Inpatient (IN) ==
[2017-05-18] MEDS ORDERED: 0.9 % SODIUM CHLORIDE 1,000 ML IV ONE ×2 (08:25→09:30)
[2017-05-18] MEDS ORDERED: PIPERACILLIN SODIUM/TAZOBACTAM 3.375 GM in DEXTROSE 5% IN WATER 50 ML IV ONE (08:25)
[2017-05-18] MEDS ORDERED: methylPREDNISolone SOD SUCC 125 MG/2 ML VIAL IV ONE (08:28)
--- NOTE | 2017-05-18 08:43 | Emergency Department Note ---
SOB HPI - General Chief Complaint: Shortness of Breath/Dyspnea Stated Complaint: Shortness of breath Time Seen by Provider: 05/18/17 08:21 Source: EMS Mode of arrival: EMS Limitations: no limitations - History of Present Illness Patient presents from home by ambulance. Coarse breathing with altered mental status. Increasing weakness over the last few days. Fever at home. Unable to ambulate to the bathroom with 's assistance. Worse breath sounds, has been nebulizing at home. Wears oxygen constantly for COPD, has been worsening. Hypoxic in the mid 80s, placed on nonrebreather by ambulance Otherwise seen twice recently due to a fall. Head CT. Has been increasingly weak. After last discharge, several vomiting episodes, coarse breathing seem to start afterwards. DNR with limited interventions, confirmed with at the bedside. Chronic vascular issues, vascular procedures for the last few years on both legs. - Related Data Home Medications Medication Instructions Recorded Confirmed albuterol sulfate HFA 90 2 puff INHALATION .COMPLEX g 09/02/14 05/11/17 mcg/actuation aerosol inhaler aspirin 81 mg chewable tablet 81 mg PO QDAY tab 09/02/14 05/11/17 budesonide 0.5 mg/2 mL suspension 0.5 mg INHALATION Q12H ml 09/02/14 05/11/17 for nebulization calcium carbonate 500 mg (1,250 1 tab PO TID tab 09/02/14 05/11/17 mg)-vitamin D3 125 unit tablet traMADol [Ultram] 50 mg PO Q6HP PRN 09/06/15 05/11/17 Gabapentin [Neurontin] 600 mg PO HS 11/11/16 05/11/17 acetaminophen 325 mg tablet 650 mg PO QHS PRN tab 12/20/16 05/11/17 Previous Rx's Medication Instructions Recorded fluticasone 50 mcg/actuation nasal 2 spray INTRANASAL BID #16 g 04/02/16 spray,suspension cholecalciferol (vitamin D3) 2,000 2,000 unit PO QDAY #30 cap 10/08/16 unit capsule fluoxetine 20 mg capsule 20 mg PO QDAY #90 cap 11/19/16 losartan 50 mg tablet 25 mg PO QDAY #45 tab 01/07/17 warfarin 5 mg tablet See Dose Instructions PO QDAY #60 04/22/17 tab prednisone 5 mg tablet 5 mg PO QDAY #60 tab 05/11/17 traMADol [Ultram] 50 mg PO Q6HP PRN #10 tab 05/14/17 Allergies Allergy/AdvReac Type Severity Reaction Status Date / Time latex Allergy Mild Rash Verified 05/13/17 23:50 Review of Systems All systems ED: reviewed and negative except as stated. Constitutional: Reports: fever, weakness. Denies: chills ENT ED: Denies: ear pain, throat pain Cardiovascular: Denies: chest pain Respiratory: Reports: shortness of breath, cough, phlegm Gastrointestinal: Reports: vomiting. Denies: abdominal pain Past Medical History - Past Medical History Attestation: Yes: The following information was validated with the patient. Medical history: Reports: atrial fibrillation (n Coumadin), CHF, COPD, CVA, hypertension, osteoporosis, peripheral artery disease, other (Gout, multiple myeloma/myelodysplasia. Pneumonia Fall 2017. Peripheral arterial disease. Anemia - on Aricept.). Denies: cancer, DM, hyperlipidemia, thyroid disease Psychiatric history: Reports: depression (some with weather/season changes.). Denies: anxiety Surgical history ED: Reports: herniorrhaphy (repaired twice.), hip replacement ( right hip femoral head. Left hip pin and femur kiley.), vascular surgery ( bilateral runoff to legs (not certain which procedure).) - Social History smoking status: Former smoker Alcohol use: Reports: Rarely Drug use: Reports: none Physical Exam Limitations: no limitations General appearance: alert, other (Confused, mildly agitated, restless in bed; very weak, requires assistance to sit up) Head: atraumatic, normocephalic Eye: Present: normal appearance ENT: normal exam, mucous membranes moist Neck: Present: normal inspection. Absent: lymphadenopathy Chest: Present: normal inspection, symmetric chest wall rise Respiratory: Present: wheezes, prolonged expiratory phase, other. Absent: respiratory distress, accessory muscle use Cardiovascular: Present: regular rate, normal rhythm Abdominal: Present: soft. Absent: tenderness Extremities: Present: other (Blue cold toes; diffuse mottling in both upper and lower extremities) Back: Present: normal inspection Neurological: Present: alert. Absent: oriented X3 Skin: Present: cyanosis Course Vital Signs Temperature 101.5 F H 05/18/17 08:07 Pulse Rate 100 H 05/18/17 08:07 Respiratory Rate 28 H 05/18/17 08:07 Blood Pressure 135/64 05/18/17 08:07 Pulse Oximetry (%) 94 05/18/17 08:07 Temperature 101.5 F H 05/18/17 08:07 Pulse Rate 100 H 05/18/17 08:07 Respiratory Rate 28 H 05/18/17 08:07 Blood Pressure 135/64 05/18/17 08:07 Pulse Oximetry (%) 94 05/18/17 08:07 Shortness of Breath/Dyspnea - Lab Data Lab results reviewed: Yes I reviewed the patient's lab results. ABG PO2 50, PCO2 40 Lactic 2.4 - Radiology Data Radiology results reviewed: Yes I reviewed the patient's radiology results. Right middle and lower lobe infiltrates consistent with aspiration Disposition Pt seen by UTILITY LINEMAN/PA only: No Clinical Impression: Aspiration pneumonia, COPD exacerbation, Hypoxia, Acute delirium Summary: Anticipate admission Lactic acid borderline Antibiotics initiated See final report and disposition from Dr. casiano, hand off at shift change Disposition: Still a Patient Condition: Serious Referrals: Gaviota Mercedes, MAY, JIG HAND [Primary Care Provider] -
--- NOTE | 2017-05-18 08:49 | XRay Report ---
HISTORY: Reason for Exam:cough, fever, fell on Tuesday and injured left ribs FINDINGS: There is a large alveolar infiltrates in the central portion of the right lung. This has enlarged since 05/14/17. This is superimposed upon some underlying pulmonary fibrosis. There is a band of scar tissue in the left upper lobe which is unchanged from 01/17/17. The heart size is normal. No pleural effusion or pneumothorax are present. No rib fracture is identified. There is no widening of the mediastinum. IMPRESSION: Worsening pneumonia throughout the right lung Interpreted and Authenticated by: Scottie Narayan 05/18/17
[2017-05-18 09:46] LABS: Basophils # (Auto) 0 K/mcL (0.0-0.3); Basophils % (Auto) 0.2 % (0.0-2.0); Eosinophils # (Auto) 0.5 K/mcL (0.0-0.7); Eosinophils % (Auto) 3.2 % (0.0-7.0); Granulocytes % (Auto) 85.8 % (38.0-78.0); Lymphocytes # (Auto) 0.8 K/mcL (1.5-4.8); Lymphocytes % (Auto) 5.5 % (15.5-49.0); Mean Corpuscular HGB Conc 34.2 g/dL (31.0-36.0); Monocytes # (Auto) 0.8 K/mcL (0.1-0.9); Monocytes % (Auto) 5.3 % (1.0-12.0); Platelet Count 483 K/mcL (140-440); RBC 2.76 M/mcL (4.50-5.90); Red Cell Distribution Width 17.4 % (11.5-14.5)
[2017-05-18 10:04] LABS: ALT/SGPT 37 U/l (0-40); Albumin 3.6 gm/dL (3.2-5.2); Albumin/Globulin Ratio 1.7 (1.0-2.3); Alkaline Phosphatase 96 U/L (39-117); Blood Urea Nitrogen 17 mg/dl (8-23)
[2017-05-18] MEDS ORDERED: ACETAMINOPHEN 325 MG TABLET PO ONE (10:42)
--- NOTE | 2017-05-18 10:55 | Emergency Department Note ---
General Adult HPI - General Chief complaint: Shortness of Breath/Dyspnea Stated complaint: Shortness of breath Time Seen by Provider: 05/18/17 08:21 Source: EMS Mode of arrival: EMS Limitations: no limitations - Related Data Home Medications Medication Instructions Recorded Confirmed albuterol sulfate HFA 90 2 puff INHALATION .COMPLEX g 09/02/14 05/11/17 mcg/actuation aerosol inhaler aspirin 81 mg chewable tablet 81 mg PO QDAY tab 09/02/14 05/11/17 budesonide 0.5 mg/2 mL suspension 0.5 mg INHALATION Q12H ml 09/02/14 05/11/17 for nebulization calcium carbonate 500 mg (1,250 1 tab PO TID tab 09/02/14 05/11/17 mg)-vitamin D3 125 unit tablet traMADol [Ultram] 50 mg PO Q6HP PRN 09/06/15 05/11/17 Gabapentin [Neurontin] 600 mg PO HS 11/11/16 05/11/17 acetaminophen 325 mg tablet 650 mg PO QHS PRN tab 12/20/16 05/11/17 Previous Rx's Medication Instructions Recorded fluticasone 50 mcg/actuation nasal 2 spray INTRANASAL BID #16 g 04/02/16 spray,suspension cholecalciferol (vitamin D3) 2,000 2,000 unit PO QDAY #30 cap 10/08/16 unit capsule fluoxetine 20 mg capsule 20 mg PO QDAY #90 cap 11/19/16 losartan 50 mg tablet 25 mg PO QDAY #45 tab 01/07/17 warfarin 5 mg tablet See Dose Instructions PO QDAY #60 04/22/17 tab prednisone 5 mg tablet 5 mg PO QDAY #60 tab 05/11/17 traMADol [Ultram] 50 mg PO Q6HP PRN #10 tab 05/14/17 Allergies Allergy/AdvReac Type Severity Reaction Status Date / Time latex Allergy Mild Rash Verified 05/13/17 23:50 Review of Systems Constitutional: Reports: fever, weakness. Denies: chills ENT ED: Denies: ear pain, throat pain Cardiovascular: Denies: chest pain Respiratory: Reports: shortness of breath, cough, phlegm Gastrointestinal: Reports: vomiting. Denies: abdominal pain Past Medical History - Past Medical History Medical history: Reports: atrial fibrillation (n Coumadin), CHF, COPD, CVA, hypertension, osteoporosis, peripheral artery disease, other (Gout, multiple myeloma/myelodysplasia. Pneumonia Fall 2017. Peripheral arterial disease. Anemia - on Aricept.). Denies: cancer, DM, hyperlipidemia, thyroid disease Psychiatric history: Reports: depression (some with weather/season changes.). Denies: anxiety Surgical history ED: Reports: herniorrhaphy (repaired twice.), hip replacement ( right hip femoral head. Left hip pin and femur kiley.), vascular surgery ( bilateral runoff to legs (not certain which procedure).) - Social History smoking status: Former smoker Alcohol use: Reports: Rarely Drug use: Reports: none Physical Exam Limitations: no limitations General appearance: alert, other (Confused, mildly agitated, restless in bed; very weak, requires assistance to sit up) Course Vital Signs Temperature 101.5 F H 05/18/17 08:07 Pulse Rate 100 H 05/18/17 08:07 Respiratory Rate 28 H 05/18/17 08:07 Blood Pressure 135/64 05/18/17 08:07 Pulse Oximetry (%) 94 05/18/17 08:07 Temperature 101.3 F H 05/18/17 09:47 Pulse Rate 94 H 05/18/17 10:16 Respiratory Rate 25 H 05/18/17 10:16 Blood Pressure 123/59 05/18/17 10:16 Pulse Oximetry (%) 96 05/18/17 10:16 Medical Decision Making - [facility] Narrative Medical decision making narrative: This patient has significant pneumonia with signs of sepsis. He will be admitted to the hospital by Dr. Sesay. - Medical Records Medical records reviewed: Yes I reviewed the patient's medical records. - Lab Data Lab results reviewed: Yes I reviewed the patient's lab results. Result diagrams: 05/18/17 08:56 05/18/17 08:56 Lab Results 05/18/17 05/18/17 05/18/17 Range/Units 08:56 08:56 08:56 WBC 15.0 H (4.5-11.0) K/mcL RBC 2.76 L (4.50-5.90) M/mcL Hgb 10.2 L (13.5-16.5) g/dL Hct 29.8 L (41.0-55.0) % MCV 108.0 H (80.0-100.0) fL MCH 37.0 H (26.0-34.0) pg MCHC 34.2 (31.0-36.0) g/dL RDW 17.4 H (11.5-14.5) % Plt Count 483 H (140-440) K/mcL MPV 8.6 (7.4-10.4) fL Gran % 85.8 H (38.0-78.0) % Lymph % (Auto) 5.5 L (15.5-49.0) % Glynn % (Auto) 5.3 (1.0-12.0) % Eos % (Auto) 3.2 (0.0-7.0) % Baso % (Auto) 0.2 (0.0-2.0) % Gran # 12.8 H (1.8-8.0) K/mcL Lymph # (Auto) 0.8 L (1.5-4.8) K/mcL Glynn # (Auto) 0.8 (0.1-0.9) K/mcL Eos # (Auto) 0.5 (0.0-0.7) K/mcL Baso # (Auto) 0 (0.0-0.3) K/mcL VBG Lactic Acid 3.1 H (0.5-2.2) mmol/L Sodium 138 (133-145) mmol/L Potassium 4.3 (3.3-5.1) mmol/L Chloride 99 (96-108) mmol/L Carbon Dioxide 26 (22-30) mmol/L Anion Gap 13.0 (8-16) BUN 17 (8-23) mg/dl Creatinine 1.0 (0.7-1.2) mg/dl GFR Calculation 68 Glucose 118 H (70-105) mg/dL Calcium 8.3 L (8.6-10.4) mg/dl Total Bilirubin 1.4 H (0.0-1.0) mg/dL AST 33 (0-37) U/l ALT 37 (0-40) U/l Alkaline Phosphatase 96 (39-117) U/L Total Protein 5.7 L (5.9-8.4) gm/dL Albumin 3.6 (3.2-5.2) gm/dL Globulin 2.1 L (2.2-3.7) gm/dL Albumin/Globulin Ratio 1.7 (1.0-2.3) Procalcitonin (<0.10) ng/mL 05/18/17 Range/Units 08:56 WBC (4.5-11.0) K/mcL RBC (4.50-5.90) M/mcL Hgb (13.5-16.5) g/dL Hct (41.0-55.0) % MCV (80.0-100.0) fL MCH (26.0-34.0) pg MCHC (31.0-36.0) g/dL RDW (11.5-14.5) % Plt Count (140-440) K/mcL MPV (7.4-10.4) fL Gran % (38.0-78.0) % Lymph % (Auto) (15.5-49.0) % Glynn % (Auto) (1.0-12.0) % Eos % (Auto) (0.0-7.0) % Baso % (Auto) (0.0-2.0) % Gran # (1.8-8.0) K/mcL Lymph # (Auto) (1.5-4.8) K/mcL Glynn # (Auto) (0.1-0.9) K/mcL Eos # (Auto) (0.0-0.7) K/mcL Baso # (Auto) (0.0-0.3) K/mcL VBG Lactic Acid (0.5-2.2) mmol/L Sodium (133-145) mmol/L Potassium (3.3-5.1) mmol/L Chloride (96-108) mmol/L Carbon Dioxide (22-30) mmol/L Anion Gap (8-16) BUN (8-23) mg/dl Creatinine (0.7-1.2) mg/dl GFR Calculation Glucose (70-105) mg/dL Calcium (8.6-10.4) mg/dl Total Bilirubin (0.0-1.0) mg/dL AST (0-37) U/l ALT (0-40) U/l Alkaline Phosphatase (39-117) U/L Total Protein (5.9-8.4) gm/dL Albumin (3.2-5.2) gm/dL Globulin (2.2-3.7) gm/dL Albumin/Globulin Ratio (1.0-2.3) Procalcitonin 0.36 (<0.10) ng/mL - Radiology Data Radiology results reviewed: Yes I reviewed the patient's radiology results. Disposition Pt seen by PROGRAM EVALUATOR/PA only: No Clinical Impression: Aspiration pneumonia, COPD exacerbation, Hypoxia, Acute delirium Disposition: Xfer As Inpt ([facility]) Condition: Serious Referrals: Gaviota Mercedes, MAY, BARREL LAPPER [Primary Care Provider] - Time of Disposition: 10:55
--- NOTE | 2017-05-18 11:57 | Internal Med History&Physical ---
Medical - H&P: HPI Patient information: Note initiated : 05/18/17 at 11:46 am Service Date, if different from initiated Date: [] Patient: Benny Austin a 86 y/o M admitted on for Shortness of breath. Chief Complaint: [] History of present illness: Mr. Austin is a 86 year old Male with h/o eosinophilic pneumonia, follows with Dr fry ,presents to the ER with complaints of not feeling well x 1 week. According the family the patient was not feeling well for nearly a week, he has been sick and tired, He fell down on tuesday, and was brought to the ER for evaluation, at that time he was confused, but it seems his workup was negative, including head ct and pelvis ct and chest x ray was negative, He was discharged home with pcp follow up After going home he was stable for a day or so and his condition continued to worsen again, he had chills, severe shortness of breath on exertion, inabiilty to walk short distances ( could walk 6 blocks with walker as per him before), fatied, subjective sensation of fever and chills with rigors. He has been having dry heaving and vomiting over the last few days, he has cough with yellowish sputum production. The patient was unable to get up out of the bed this AM and was very short of breath this morning and was therefore brought to the ER for further evaluation. in the ER the patient was febrile, temperature 102.3, tachycardic with a heart rate of 97, tachypneic with respirations between 22 and 28,. The blood pressure was stable, that was documented blood pressures 95/67. Chest x-ray is read as right lung pneumonia which is worsening, EKG is atrial fibrillation with right bundle-branch block, poor old age. ABG drawn shows pH of 7.43-PCO2 45. PO2 51-patient is on oxygen supplementation. Approximately 5 L. The patient's has leukocytosis with WBC count of 15, anemia with a hemoglobin of 10, platelet is 483, patient has normal chemistries, pro- calcitonin is elevated at 0.36, lactic acid is elevated at 3.1. The patient admits to be having some headaches intermittent, some dizziness, no changes in vision hearing, no difficulty in swallow he has shortness of breath on exertion, cough, chest pain on the left side where he fell down, has nausea and vomiting, no abdominal pain no constipation or diarrhea, no urinary complaints, denies any skin rashes or acute joint pains. He has hypersensitivity of his toes in the lower extremity, Raynaud's-like phenomenon. 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) Osteoporosis (Chronic) Tobacco abuse (Resolved 09/08/12) Chronic sinusitis (Chronic 03/19/14) PVD (peripheral vascular disease) (Chronic 09/08/12) Inguinal hernia recurrent unilateral (Resolved 05/04/13) Essential hypertension (Chronic) 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 ( Chronic) Depression (Chronic) CHF (congestive heart failure) (Chronic 03/19/14) COPD (chronic obstructive pulmonary disease) (Chronic) Carotid bruit (Chronic 09/08/12) Atrial fibrillation (Chronic 03/19/14) Macrocytic anemia (Chronic) Allergic rhinitis (Chronic) Acute exacerbation of chronic obstructive airways disease (Resolved) Acute vestibular neuronitis (Resolved) Basal pneumonia (Resolved) Benign paroxysmal positional vertigo (Resolved) Closed hip fracture (Resolved 09/04/13) Community acquired pneumonia (Resolved) Contusion of shoulder, right (Resolved 04/23/13) Coumarin adverse reaction (Resolved) Encounter for removal of nasal packing (Resolved) Epistaxis (Resolved) Gastroenteritis (Resolved) Gout (Resolved) Multifocal atrial tachycardia (Resolved 03/19/14) Pleural effusion (Resolved 03/19/14) Pneumonia (Resolved) Pneumonia (Resolved) Pneumonitis (Resolved 03/19/14) Rheumatic fever (Resolved) Rib sprain (Resolved) Right upper quadrant abdominal pain (Resolved) Upper respiratory infection (Resolved) Surgical history: Past Surgical History (Last Reviewed 05/11/17 @ 08:10 by Gaviota Mercedes DNP, EMBEDDED LINUX DEVELOPER) Hernia (Resolved) Chyloperitoneum determined by paracentesis (Resolved) H/O angiography (Resolved) Hip fracture requiring operative repair (Resolved) History of bone marrow biopsy (Resolved) History of hip replacement (Resolved) History of intravascular stent placement (Resolved) History of tonsillectomy (Resolved) Pertinent family history: Family History (Last Reviewed 05/11/17 @ 08:10 by Gaviota Mercedes DNP, KAILEY) Brother Asthma Father Asthma Osteoarthritis Sister Asthma Essential hypertension Acute myocardial infarction Mother Essential hypertension Osteoarthritis Brother #2 Depression Medical - H&P: Meds Home Medications Medication Instructions Recorded Confirmed Type albuterol sulfate HFA 90 2 puff INHALATION .COMPLEX g 09/02/14 05/11/17 History mcg/actuation aerosol inhaler aspirin 81 mg chewable tablet 81 mg PO QDAY tab 09/02/14 05/11/17 History budesonide 0.5 mg/2 mL suspension 0.5 mg INHALATION Q12H ml 09/02/14 05/11/17 History for nebulization calcium carbonate 500 mg (1,250 1 tab PO TID tab 09/02/14 05/11/17 History mg)-vitamin D3 125 unit tablet traMADol [Ultram] 50 mg PO Q6HP PRN 09/06/15 05/11/17 History fluticasone 50 mcg/actuation nasal 2 spray INTRANASAL BID #16 g 04/02/16 Rx spray,suspension cholecalciferol (vitamin D3) 2,000 2,000 unit PO QDAY #30 cap 10/08/16 05/11/17 Rx unit capsule Gabapentin [Neurontin] 600 mg PO HS 11/11/16 05/11/17 History fluoxetine 20 mg capsule 20 mg PO QDAY #90 cap 11/19/16 05/11/17 Rx acetaminophen 325 mg tablet 650 mg PO QHS PRN tab 12/20/16 05/11/17 History losartan 50 mg tablet 25 mg PO QDAY #45 tab 01/07/17 05/11/17 Rx warfarin 5 mg tablet See Dose Instructions PO QDAY #60 04/22/17 05/11/17 Rx tab prednisone 5 mg tablet 5 mg PO QDAY #60 tab 05/11/17 05/11/17 Rx traMADol [Ultram] 50 mg PO Q6HP PRN #10 tab 05/14/17 Rx Allergies Allergy/AdvReac Type Severity Reaction Status Date / Time latex Allergy Mild Rash Verified 05/13/17 23:50 Medical - H&P: Exam - Constitutional Vitals: Temp Pulse Resp BP Pulse Ox 102.3 F H 108 H 27 H 127/53 98 05/18/17 11:03 05/18/17 11:31 05/18/17 11:31 05/18/17 11:31 05/18/17 11:31 Exam: GENERAL: The patient is a well-developed, well-nourished in no apparent distress. Is alert and oriented x3. VITAL SIGNS: Reviewed and as noted elsewhere. HEENT: Head is normocephalic and atraumatic. Extraocular muscles are intact. Pupils are equal, round, and reactive to light. Nares appeared normal. Mouth appears any without lesions. Mucous membranes are ry NECK: Normal to inspection, Supple, No lymphadenopathy or thyromegaly. LUNGS: Air entry diminished on the right side, slight crackles throughout the lung, left side is clear, no wheezing or pedis. Patient is able to speak full sentences, is in mild respiratory distress. Has some accessory muscle use HEART: Regular rate irregular rhythm, S1 and S2 heard, no Gallop, S3 or Rub Noted, No Gross murmur heard. ABDOMEN: Soft, nontender, and nondistended. Positive bowel sounds. No hepatosplenomegaly was noted. EXTREMITIES: No cyanosis, clubbing, rash, lesions or edema.lower extremity toes are bluish in color this is a chronic finding secondary to arterial insufficiency according to the family NEUROLOGIC: Cranial nerves II through XII are grossly intact. Motor and Sensory System Grossly Intact PSYCHIATRIC: Normal affect, Normal Mood. Appropriate Behavior. SKIN: No ulceration or wounds noted, No jaundice, No rash noted. Medical - H&P: Reslt - Labs CBC & Chem 7: 05/18/17 08:56 05/18/17 08:56 Labs: Short CBC 05/18/17 Range/Units 08:56 WBC 15.0 H (4.5-11.0) K/mcL Hgb 10.2 L (13.5-16.5) g/dL Hct 29.8 L (41.0-55.0) % Plt Count 483 H (140-440) K/mcL BMP 05/18/17 08:56 Sodium 138 Potassium 4.3 Chloride 99 Carbon Dioxide 26 BUN 17 Creatinine 1.0 Glucose 118 H Calcium 8.3 L Liver Function 05/18/17 Range/Units 08:56 Total Bilirubin 1.4 H (0.0-1.0) mg/dL AST 33 (0-37) U/l ALT 37 (0-40) U/l Alkaline Phosphatase 96 (39-117) U/L Albumin 3.6 (3.2-5.2) gm/dL Medical - H&P: A/P - Narrative A/P Narrative: A/P Acute on chronic hypoxic respiratory failure Health care associated pneumonia. Atrial fibrillation Severe Sepsis Lactic Acidosis Congestive Heart failure COPD Eosinophic Pneumonia h/o CVA PVD Myelodysplastic Syndrome Depression Plan Admit to pcu status IV fluids, BIPAP PRN for respiratory support, Supplement oxygen to keep osat > 90 Intubate if resp condition worsens Blood, sputum cx, sputum for PCP screen (has been on high dose prednisone recently) IV vancomycin and zosyn for HCAP pna Trend lactic acid malloy to be placed IV steroids and duonebs for copd for now, steroids will also help if this is flare up of eosinophilic pneumonia. Will touch base with Dr Fry IV fluids and monitor urine output. continue home medications for chr medical conditions once verfied and appropriate. DVT on coumadin Check INR, hep sq if inr sub therapeutic, CArdiac Diet Full code. Social History - Social History household members: spouse marital status: occupational status: retired - Dietary Habits well-balanced diet: about half the time - Exercise physical activity: walking frequency: 1-2 times per week duration: 15-30 minutes/day - Tobacco smoking status: Former smoker - Quit Details pack-years: 70 - Alcohol alcohol intake frequency: does not drink - Substance use substance use type: does not use - Rajani/Congregational rajain/samaritan: None - Home Safety working smoke detector in home: Yes
[2017-05-18] MEDS: 0.9 % SODIUM CHLORIDE 1,000 ML IV SCH ×2 (13:00→20:00)
[2017-05-18] MEDS ORDERED: ACETAMINOPHEN 325 MG TABLET PO PRN (13:06)
[2017-05-18] MEDS ORDERED: VANCOMYCIN PER PHARMACY IV SCH (13:06)
[2017-05-18] MEDS ORDERED: ONDANSETRON 4 MG/2 ML VIAL IV PRN (13:06)
[2017-05-18] MEDS ORDERED: NALOXONE HCL 0.4 MG/ML VIAL IV PRN (13:06)
[2017-05-18] MEDS: PIPERACILLIN SODIUM/TAZOBACTAM 3.375 GM in DEXTROSE 5% IN WATER 50 ML IV SCH ×2 (14:13→18:36)
[2017-05-18] MEDS: VANCOMYCIN 1,250 MG in 0.9 % SODIUM CHLORIDE 500 ML IV SCH ×2 (14:14→22:15)
[2017-05-18] MEDS: 0.9 % SODIUM CHLORIDE 10 ML SYRINGE IV SCH ×2 (14:18→22:15)
[2017-05-18] MEDS: methylPREDNISolone SOD SUCC 125 MG/2 ML VIAL IV SCH ×2 (14:18→22:12)
[2017-05-18] MEDS: IPRATROPIUM/ALBUTEROL 3 ML AMPUL.NEB NEB SCH ×3 (15:10→22:57)
[2017-05-18] MEDS: HYDROmorphone 2 MG/ML VIAL IV PRN ×2 (18:49→20:41)
[2017-05-18] MEDS ORDERED: LORazepam 0.5 MG TABLET ONE (20:40)
[2017-05-18] MEDS ORDERED: HEPARIN 5,000 UNIT/ML VIAL SQ SCH (21:00)
[2017-05-18] MEDS ORDERED: LORazepam 0.5 MG TABLET PO PRN (21:00)
[2017-05-19] MEDS: PIPERACILLIN SODIUM/TAZOBACTAM 3.375 GM in DEXTROSE 5% IN WATER 50 ML IV SCH ×6 (00:34→23:58)
[2017-05-19] MEDS: IPRATROPIUM/ALBUTEROL 3 ML AMPUL.NEB NEB SCH ×6 (02:48→23:04)
[2017-05-19] MEDS: methylPREDNISolone SOD SUCC 125 MG/2 ML VIAL IV SCH ×3 (05:24→21:45)
[2017-05-19 05:55] LABS: ALT/SGPT 31 U/l (0-40); Albumin/Globulin Ratio 1.4 (1.0-2.3); Alkaline Phosphatase 72 U/L (39-117); Bilirubin,Direct < 0.2 mg/dL (0.0-0.3); Blood Urea Nitrogen 23 mg/dl (8-23); Gamma Glutamyl Transpeptidase 113 U/L (8-61); Uric Acid 4.4 mg/dL (2.5-8.0)
[2017-05-19] MEDS: 0.9 % SODIUM CHLORIDE 10 ML SYRINGE IV SCH ×6 (06:09→21:45)
[2017-05-19] MEDS ORDERED: PANTOPRAZOLE 40 MG TABLET PO SCH (07:30)
[2017-05-19 07:43] LABS: Basophils # (Auto) 0 K/mcL (0.0-0.3); Basophils % (Auto) 0.1 % (0.0-2.0); Eosinophils # (Auto) 0 K/mcL (0.0-0.7); Eosinophils % (Auto) 0.1 % (0.0-7.0); Granulocytes % (Auto) 93.3 % (38.0-78.0); Lymphocytes # (Auto) 0.2 K/mcL (1.5-4.8); Lymphocytes % (Auto) 3.1 % (15.5-49.0); Mean Cell Volume 107.7 fL (80.0-100.0); Mean Corpuscular HGB Conc 34.4 g/dL (31.0-36.0); Monocytes # (Auto) 0.2 K/mcL (0.1-0.9); Monocytes % (Auto) 3.4 % (1.0-12.0); Platelet Count 347 K/mcL (140-440); RBC 2.31 M/mcL (4.50-5.90); Red Cell Distribution Width 17.2 % (11.5-14.5)
[2017-05-19 09:06] LABS: ABG Methemoglobin 0.3 % (0.4-1.5); VBG Base Excess -5.6 (-2.0-2.0); VBG HCO3 19.3 mmol/L (24.0-28.0); VBG Oxygen Saturation 94.8 % (40.0-70.0); VBG PCO2 35.2 mmHg (41.0-51.0); VBG PH 7.36 U (7.32-7.42); VBG PO2 130 mmHg (25-40); VBG Total CO2 20.4 mmol/L (25.0-29.0)
[2017-05-19] MEDS ORDERED: LORazepam 0.5 MG TABLET PO PRN (09:46)
[2017-05-19] MEDS ORDERED: ONDANSETRON 4 MG/2 ML VIAL IV PRN (09:46)
[2017-05-19] MEDS ORDERED: VANCOMYCIN PER PHARMACY IV SCH (09:46)
[2017-05-19] MEDS ORDERED: NALOXONE HCL 0.4 MG/ML VIAL IV PRN (09:46)
[2017-05-19] MEDS ORDERED: LACTATED RINGERS 1,000 ML IV ONE (10:16)
[2017-05-19] MEDS: VANCOMYCIN 1,250 MG in 0.9 % SODIUM CHLORIDE 500 ML IV SCH (11:24)
[2017-05-19] MEDS: ACETAMINOPHEN 325 MG TABLET PO PRN (11:54)
[2017-05-19] MEDS: VANCOMYCIN 1,500 MG in 0.9 % SODIUM CHLORIDE 500 ML IV SCH (12:43)
[2017-05-19] MEDS ORDERED: FUROSEMIDE 40 MG/4 ML VIAL IV ONE ×2 (17:15→17:17)
--- NOTE | 2017-05-19 17:51 | XRay Report ---
HISTORY: Reason for Exam:chest pain , pneumonia, sepsis and shortness of breath and hypoxia FINDINGS: A large consolidating infiltrate is present in the central portion of the right lung extending down to the right diaphragm. There is a smaller infiltrate around the left hilum and above the left diaphragm. There has been improvement in the right lower lobe but increasing consolidation in the left lower lobe since 05/18/17. Very small right-sided pleural effusion is present. There is no left-sided effusion. The heart size is within normal limits. IMPRESSION: Bilateral pneumonia with a shifting pattern since yesterday Interpreted and Authenticated by: Scottie Narayan 05/19/17
[2017-05-19] MEDS ORDERED: 0.9 % SODIUM CHLORIDE 1,000 ML IV ONE ×2 (18:51→18:52)
[2017-05-19] MEDS: HYDROmorphone 2 MG/ML VIAL IV PRN (19:18)
--- NOTE | 2017-05-19 19:31 | Internal Med Progress Note ---
Medical - PN: Subj Patient information: Note initiated : 05/19/17 at 7:29 pm Service Date, if different from initiated Date: [] Patient: Benny Austin 86 y/o M admitted on 05/18/17 for Shortness of Breath/Pneumonia, Sepsis, Hypoxia. Chief Complaint: [] Interval history: Mr. Austin is a 86 year old Male with h/o eosinophilic pneumonia, follows with Dr wilder ,presents to the ER with complaints of not feeling well x 1 week. According the family the patient was not feeling well for nearly a week, he has been sick and tired, He fell down on tuesday, and was brought to the ER for evaluation, at that time he was confused, but it seems his workup was negative, including head ct and pelvis ct and chest x ray was negative, He was discharged home with pcp follow up After going home he was stable for a day or so and his condition continued to worsen again, he had chills, severe shortness of breath on exertion, inabiilty to walk short distances ( could walk 6 blocks with walker as per him before), fatied, subjective sensation of fever and chills with rigors. He has been having dry heaving and vomiting over the last few days, he has cough with yellowish sputum production. The patient was unable to get up out of the bed this AM and was very short of breath this morning and was therefore brought to the ER for further evaluation. in the ER the patient was febrile, temperature 102.3, tachycardic with a heart rate of 97, tachypneic with respirations between 22 and 28,. The blood pressure was stable, that was documented blood pressures 95/67. Chest x-ray is read as right lung pneumonia which is worsening, EKG is atrial fibrillation with right bundle-branch block, poor old age. ABG drawn shows pH of 7.43-PCO2 45. PO2 51-patient is on oxygen supplementation. Approximately 5 L. The patient's has leukocytosis with WBC count of 15, anemia with a hemoglobin of 10, platelet is 483, patient has normal chemistries, pro- calcitonin is elevated at 0.36, lactic acid is elevated at 3.1. The patient admits to be having some headaches intermittent, some dizziness, no changes in vision hearing, no difficulty in swallow he has shortness of breath on exertion, cough, chest pain on the left side where he fell down, has nausea and vomiting, no abdominal pain no constipation or diarrhea, no urinary complaints, denies any skin rashes or acute joint pains. He has hypersensitivity of his toes in the lower extremity, Raynaud's-like phenomenon. I reviewed the CODE STATUS with the patient and the family and the patient wishes to be full code may 19 Patient seen exained, this AM was sitting in the chair, off oxygen, and was donig well he has shortness of breath with minimal exertion, but otherwise felt better. He had no acute overnight events, microbiology is negative. This PM his condition worsened, he became suddenly short of breath, in resp distress, starla exp wheezing, abg showed acute hypoxic resp failure, lactic acid level was 6.6 pt given duonebs, placed on bipap, iv lasix and iv morhpine given patient still bit anxious, iv ativan 0.5mg added pt x ray shows worsneing pna. Pertinent ROS: Denies headache, dizziness Denies chest pain, palpitations Present cough and shortness of breath Denies abdominal pain, nausea or vomiting. THis pm became very dyspneic - Constitutional Vitals: Vital Signs Temp Pulse Resp BP Pulse Ox 99.2 F H 110 H 17 149/86 100 05/19/17 15:43 05/19/17 17:28 05/19/17 19:25 05/19/17 19:25 05/19/17 19:25 Period Temp Pulse Resp BP Sys/[place]on[place] Pulse Ox Last 24 Hr 97.1 F-99.2 F 76-116 12-26 94-159/43-92 94-100 Intake and Output 05/19/17 05/19/17 05/19/17 05:59 13:59 21:59 Intake Total 1869 550 / 550 Output Total 275 / 275 150 / 150 100 / 100 Balance 1595 / 1595 1860 / 1860 450 / 450 Weight 168 lb 14.4 oz Patient Weight 05/20/17 05:59 Weight 168 lb 14.4 oz Intake & Output: Intake & Output 05/19/17 05/19/17 05/19/17 05:59 13:59 21:59 Intake Total 1869 550 / 550 Output Total 275 / 275 150 / 150 100 / 100 Balance 1595 / 1595 1860 / 1860 450 / 450 Weight 168 lb 14.4 oz Intake: IV 1600 / 1600 1050 / 1050 550 / 550 Lactated Ringers 1,000 ml @ 1000 / 1000 Wide Open IV BOLUS ONE Rx#: [id number] Zosyn 3.375 gm In Dextrose 5% 100 / 100 50 / 50 50 / 50 in Water 50 ml @ 100 mls/hr IV Q6H MANNIE Rx#:[id number] Vancomycin 1,500 mg In Sodium 500 / 500 0 / 0 500 / 500 Chloride 0.9% 500 ml @ 333.3 mls/hr IV Q24H MANNIE Rx#: [id number] Oral 270 / 270 960 / 960 Output: Urine Catheter Amount 0 / 0 Void Amount 275 / 275 150 / 150 100 / 100 Other: Meal Lunch Percent of Meal Consumed 50% Feeding Ability Assist with Tray Set Up Stool Size Moderate Stool Color Brown Stool Consistency Soft # Voids 1 1 # Bowel Movements 1 Exam: Constitutional; Afebrile, cooperative, alert, in acute resp distress, Eyes- No icterus, , No periorbital swelling Ears- Ext ear normal, hearing normal to conversation. Neck- Midline trachea, supple Respiratory system: Air Entry equal on both sides, unable to speak more than few workds, using accessory muscles, starla exp wheezing, improved with bipap. CVS- Rate tachyardic, irregular rhythm, s1,s2 present, no rub or gallop. Abdomen- Soft nontender abdomen, no organomegaly, no tenderness, no guarding or rigidity, ART MANAGER- AOOx3, moving all extremities, no gross focal deficit noted. Medical - PN: Obj Da - Labs CBC & Chem 7: 05/19/17 04:05 05/19/17 04:05 Labs: Abnormal Lab Results 05/19/17 05/19/17 05/19/17 09:21 08:30 08:30 WBC RBC Hgb Hct MCV MCH RDW Plt Count Gran % Lymph % (Auto) Gran # Lymph # (Auto) PT INR ABG Methemoglobin 0.3 L VBG pCO2 35.2 L VBG pO2 130 H VBG HCO3 19.3 L VBG Total CO2 20.4 L VBG O2 Saturation 94.8 H VBG Base Excess -5.6 L VBG Lactic Acid 3.7 H Carboxyhemoglobin 3.6 H Total Hemoglobin 9.2 L Carbon Dioxide Glucose Calcium 7.5 L Total Bilirubin GGT Lactate Dehydrogenase Total Protein Albumin Globulin 05/19/17 05/19/17 05/19/17 06:30 04:05 04:05 WBC RBC 2.31 L Hgb 8.6 L Hct 24.9 L MCV 107.7 H MCH 37.0 H RDW 17.2 H Plt Count Gran % 93.3 H Lymph % (Auto) 3.1 L Gran # Lymph # (Auto) 0.2 L PT 24.7 H INR 2.2 H ABG Methemoglobin VBG pCO2 VBG pO2 VBG HCO3 VBG Total CO2 VBG O2 Saturation VBG Base Excess VBG Lactic Acid Carboxyhemoglobin Total Hemoglobin Carbon Dioxide 20 L Glucose 165 H Calcium 11.3 H Total Bilirubin GGT 113 H Lactate Dehydrogenase 315 H Total Protein 5.2 L Albumin 3.0 L Globulin 05/18/17 05/18/17 05/18/17 08:56 08:56 08:56 WBC RBC Hgb Hct MCV MCH RDW Plt Count Gran % Lymph % (Auto) Gran # Lymph # (Auto) PT 23.4 H INR 2.1 H ABG Methemoglobin VBG pCO2 VBG pO2 VBG HCO3 VBG Total CO2 VBG O2 Saturation VBG Base Excess VBG Lactic Acid 3.1 H Carboxyhemoglobin Total Hemoglobin Carbon Dioxide Glucose 118 H Calcium 8.3 L Total Bilirubin 1.4 H GGT Lactate Dehydrogenase Total Protein 5.7 L Albumin Globulin 2.1 L 05/18/17 08:56 WBC 15.0 H RBC 2.76 L Hgb 10.2 L Hct 29.8 L MCV 108.0 H MCH 37.0 H RDW 17.4 H Plt Count 483 H Gran % 85.8 H Lymph % (Auto) 5.5 L Gran # 12.8 H Lymph # (Auto) 0.8 L PT INR ABG Methemoglobin VBG pCO2 VBG pO2 VBG HCO3 VBG Total CO2 VBG O2 Saturation VBG Base Excess VBG Lactic Acid Carboxyhemoglobin Total Hemoglobin Carbon Dioxide Glucose Calcium Total Bilirubin GGT Lactate Dehydrogenase Total Protein Albumin Globulin Meds: Medications Acetaminophen (Tylenol) 650 mg PO Q4-6HP PRN PRN Reason: PAIN/FEVER > 101 Last Admin: 05/19/17 11:54 Dose: 650 mg Albuterol/Ipratropium (Duoneb) 3 ml NEB Q4HRT MANNIE Last Admin: 05/19/17 17:26 Dose: 3 ml Aspirin (Aspirin) 81 mg PO QDAY [facility] Budesonide (Pulmicort) 0.5 mg NEB Q12H [facility] Fluoxetine HCl (Prozac) 20 mg PO QDAY [facility] Fluticasone Propionate (Flonase) 2 spray NS BID [facility] Furosemide (Lasix) 40 mg IV ONCE ONE Stop: 05/19/17 17:16 Last Admin: 05/19/17 18:50 Dose: Not Given Gabapentin (Neurontin) 300 mg PO QAM [facility] Gabapentin (Neurontin) 600 mg PO HS [facility] Hydromorphone HCl (Dilaudid) 0.5 mg IV Q2HP PRN PRN Reason: PAIN LEVEL > 6 Last Admin: 05/19/17 19:18 Dose: 0.5 mg Piperacillin Sod/Tazobactam (Sod 3.375 gm/ Dextrose) 50 mls @ 100 mls/hr IV Q6H [facility] Last Infusion: 05/19/17 18:22 Dose: Infused Vancomycin HCl 1,500 mg/ (Sodium Chloride) 500 mls @ 333.3 mls/hr IV Q24H [facility] Last Infusion: 05/19/17 14:33 Dose: Infused Sodium Chloride (Sodium Chloride 0.9%) 1,000 mls @ 0 mls/hr IV BOLUS ONE PRN Reason: Wide Open Stop: 05/19/17 18:52 Last Admin: 05/19/17 19:07 Dose: 999 mls/hr Sodium Chloride (Sodium Chloride 0.9%) 1,000 mls @ 0 mls/hr IV BOLUS ONE PRN Reason: Wide Open Stop: 05/19/17 18:53 Lorazepam (Ativan) 0.5 mg PO HSP PRN PRN Reason: ANXIETY/SEDATION Methylprednisolone Sodium Succinate (Solu-Medrol) 62.5 mg IV Q8 [facility] Last Admin: 05/19/17 14:04 Dose: 62.5 mg Morphine Sulfate (Morphine) 2 mg IV ONCE ONE Stop: 05/19/17 17:16 Last Admin: 05/19/17 18:50 Dose: Not Given Naloxone HCl (Narcan) 0.1 mg IV Q2MIN PRN PRN Reason: Opiate Reversal Non-Formulary Medication (Losartan Potassium [Cozaar]) 25 mg PO QDAY [facility] Ondansetron HCl (Zofran) 4 mg IV Q4-6HP PRN PRN Reason: Nausea And Vomiting Pantoprazole Sodium (Protonix) 40 mg PO QAMAC [facility] Sodium Chloride (Saline Flush) 10 ml IV Q8 [facility] Last Admin: 05/19/17 17:04 Dose: 10 ml Vancomycin HCl (Vancomycin Per Pharmacy) 1 order IV UD MANNIE - ABG Interpretation ABG results: 05/19/17 08:30 ABG Methemoglobin 0.3 L VBG pH 7.36 VBG pCO2 35.2 L VBG pO2 130 H VBG HCO3 19.3 L VBG Total CO2 20.4 L VBG O2 Saturation 94.8 H VBG Base Excess -5.6 L Medical - PN: A/P - Time Spent With Patient Total time spent is greater than 50% in coordination of care (as documented) at patient's floor/unit and/or counseling patient: - Narrative A/P Narrative: A/P Acute on chronic hypoxic respiratory failure Health care associated pneumonia. Atrial fibrillation Severe Sepsis Lactic Acidosis Congestive Heart failure COPD Eosinophic Pneumonia h/o CVA PVD Myelodysplastic Syndrome Depression Plan Monitor on telemetery, IV fluids, BIPAP for resp support trend lactic acid Supplement oxygen to keep osat > 90 Intubate if resp condition worsens Blood, sputum cx, sputum for PCP screen (has been on high dose prednisone recently) IV vancomycin and zosyn for HCAP pna to continue, IV fluids, bolus x 2 malloy to be placed IV steroids and duonebs for copd for now, steroids will also help if this is flare up of eosinophilic pneumonia. Case reviewed with Dr wilder in AM but the patient was doing well then, continue home medications for chr medical conditions once verified and appropriate. DVT on Coumadin INr therapeutic, CArdiac Diet Full code. Medical - PN: Qual - VTE Deep Vein Thrombosis/Pulmonary Embolism Present on Admission: No
[2017-05-19 19:54] LABS: Basophils # (Auto) 0 K/mcL (0.0-0.3); Basophils % (Auto) 0 % (0.0-2.0); Eosinophils # (Auto) 0 K/mcL (0.0-0.7); Eosinophils % (Auto) 0 % (0.0-7.0); Granulocytes % (Auto) 93.2 % (38.0-78.0); Lymphocytes # (Auto) 0.2 K/mcL (1.5-4.8); Lymphocytes % (Auto) 2.5 % (15.5-49.0); Mean Cell Volume 107.6 fL (80.0-100.0); Mean Corpuscular HGB Conc 33.6 g/dL (31.0-36.0); Mean Corpuscular Hemoglobin 36.1 pg (26.0-34.0); Monocytes # (Auto) 0.4 K/mcL (0.1-0.9); Monocytes % (Auto) 4.3 % (1.0-12.0); Platelet Count 388 K/mcL (140-440); RBC 2.57 M/mcL (4.50-5.90); Red Cell Distribution Width 17.3 % (11.5-14.5)
[2017-05-19 19:57] LABS: Blood Urea Nitrogen 24 mg/dl (8-23)
[2017-05-19] MEDS ORDERED: LORazepam 2 MG/ML VIAL ONE (19:59)
[2017-05-19] MEDS: LORazepam 2 MG/ML VIAL IV PRN (20:00)
[2017-05-19] MEDS: 0.9 % SODIUM CHLORIDE 1,000 ML IV SCH (20:40)
[2017-05-19] MEDS: GABAPENTIN 300 MG CAPSULE PO SCH (20:53)
[2017-05-19] MEDS: FLUTICASONE PROPIONATE SPRAY.NAS NS SCH (20:54)
[2017-05-19] MEDS ORDERED: WARFARIN 2.5 MG TABLET PO ONE (21:00)
[2017-05-19] MEDS: BUDESONIDE 0.5 MG/2 ML AMPUL.NEB NEB SCH (23:05)
[2017-05-20] MEDS: IPRATROPIUM/ALBUTEROL 3 ML AMPUL.NEB NEB SCH ×5 (02:51→19:06)
[2017-05-20] MEDS: 0.9 % SODIUM CHLORIDE 10 ML SYRINGE IV SCH ×3 (05:39→21:53)
[2017-05-20] MEDS: methylPREDNISolone SOD SUCC 125 MG/2 ML VIAL IV SCH ×2 (05:39→14:52)
[2017-05-20] MEDS: PIPERACILLIN SODIUM/TAZOBACTAM 3.375 GM in DEXTROSE 5% IN WATER 50 ML IV SCH ×3 (05:40→17:36)
[2017-05-20 06:14] LABS: ALT/SGPT 25 U/l (0-40); Albumin 3.2 gm/dL (3.2-5.2); Albumin/Globulin Ratio 1.8 (1.0-2.3); Alkaline Phosphatase 57 U/L (39-117); Bilirubin,Direct 0.3 mg/dL (0.0-0.3); Blood Urea Nitrogen 22 mg/dl (8-23); Gamma Glutamyl Transpeptidase 97 U/L (8-61); Uric Acid 4.8 mg/dL (2.5-8.0)
[2017-05-20 06:27] LABS: Basophils # (Auto) 0 K/mcL (0.0-0.3); Basophils % (Auto) 0 % (0.0-2.0); Eosinophils # (Auto) 0.2 K/mcL (0.0-0.7); Eosinophils % (Auto) 4.7 % (0.0-7.0); Granulocytes % (Auto) 85.2 % (38.0-78.0); Lymphocytes # (Auto) 0.2 K/mcL (1.5-4.8); Lymphocytes % (Auto) 4.4 % (15.5-49.0); Mean Cell Volume 107.4 fL (80.0-100.0); Mean Corpuscular HGB Conc 33.3 g/dL (31.0-36.0); Mean Corpuscular Hemoglobin 35.8 pg (26.0-34.0); Monocytes # (Auto) 0.3 K/mcL (0.1-0.9); Monocytes % (Auto) 5.7 % (1.0-12.0); Platelet Count 279 K/mcL (140-440); RBC 2.29 M/mcL (4.50-5.90); Red Cell Distribution Width 17.2 % (11.5-14.5)
[2017-05-20] MEDS: BUDESONIDE 0.5 MG/2 ML AMPUL.NEB NEB SCH ×2 (07:15→19:11)
[2017-05-20] MEDS: PANTOPRAZOLE 40 MG TABLET PO SCH (07:31)
[2017-05-20] MEDS: 0.9 % SODIUM CHLORIDE 1,000 ML IV SCH (07:33)
[2017-05-20] MEDS ORDERED: POTASSIUM CHLORIDE 20 MEQ PACKET PO ONE (07:49)
[2017-05-20] MEDS: VANCOMYCIN 1,500 MG in 0.9 % SODIUM CHLORIDE 500 ML IV SCH (08:09)
[2017-05-20] MEDS: GABAPENTIN 300 MG CAPSULE PO SCH ×2 (08:10→21:52)
[2017-05-20] MEDS: ASPIRIN 81 MG TAB.CHEW PO SCH (08:10)
[2017-05-20] MEDS: LOSARTAN 25 MG TABLET PO SCH (08:10)
[2017-05-20] MEDS: FLUoxetine HCL 20 MG CAPSULE PO SCH (08:10)
[2017-05-20] MEDS: FLUTICASONE PROPIONATE SPRAY.NAS NS SCH ×2 (11:57→21:53)
[2017-05-20] MEDS: ACETAMINOPHEN 325 MG TABLET PO PRN ×2 (12:19→23:30)
[2017-05-20] MEDS ORDERED: WARFARIN 2 MG TABLET PO ONE (14:00)
[2017-05-20] MEDS ORDERED: DARBEPOETIN ALFA 200 MCG/ML VIAL SQ ONE (14:45)
--- NOTE | 2017-05-20 17:04 | Internal Med Progress Note ---
Medical - PN: Subj Patient information: Note initiated : 05/20/17 at 5:02 pm Service Date, if different from initiated Date: [] Patient: Benny Austin 86 y/o M admitted on 05/18/17 for Shortness of Breath/Pneumonia, Sepsis, Hypoxia. Chief Complaint: [] Interval history: Mr. Austin is a 86 year old Male with h/o eosinophilic pneumonia, follows with Dr wilder ,presents to the ER with complaints of not feeling well x 1 week. According the family the patient was not feeling well for nearly a week, he has been sick and tired, He fell down on tuesday, and was brought to the ER for evaluation, at that time he was confused, but it seems his workup was negative, including head ct and pelvis ct and chest x ray was negative, He was discharged home with pcp follow up After going home he was stable for a day or so and his condition continued to worsen again, he had chills, severe shortness of breath on exertion, inabiilty to walk short distances ( could walk 6 blocks with walker as per him before), fatied, subjective sensation of fever and chills with rigors. He has been having dry heaving and vomiting over the last few days, he has cough with yellowish sputum production. The patient was unable to get up out of the bed this AM and was very short of breath this morning and was therefore brought to the ER for further evaluation. in the ER the patient was febrile, temperature 102.3, tachycardic with a heart rate of 97, tachypneic with respirations between 22 and 28,. The blood pressure was stable, that was documented blood pressures 95/67. Chest x-ray is read as right lung pneumonia which is worsening, EKG is atrial fibrillation with right bundle-branch block, poor old age. ABG drawn shows pH of 7.43-PCO2 45. PO2 51-patient is on oxygen supplementation. Approximately 5 L. The patient's has leukocytosis with WBC count of 15, anemia with a hemoglobin of 10, platelet is 483, patient has normal chemistries, pro- calcitonin is elevated at 0.36, lactic acid is elevated at 3.1. The patient admits to be having some headaches intermittent, some dizziness, no changes in vision hearing, no difficulty in swallow he has shortness of breath on exertion, cough, chest pain on the left side where he fell down, has nausea and vomiting, no abdominal pain no constipation or diarrhea, no urinary complaints, denies any skin rashes or acute joint pains. He has hypersensitivity of his toes in the lower extremity, Raynaud's-like phenomenon. I reviewed the CODE STATUS with the patient and the family and the patient wishes to be full code may 19 Patient seen exained, this AM was sitting in the chair, off oxygen, and was donig well he has shortness of breath with minimal exertion, but otherwise felt better. He had no acute overnight events, microbiology is negative. This PM his condition worsened, he became suddenly short of breath, in resp distress, starla exp wheezing, abg showed acute hypoxic resp failure, lactic acid level was 6.6 pt given duonebs, placed on bipap, iv lasix and iv morhpine given patient still bit anxious, iv ativan 0.5mg added pt x ray shows worsneing pna. may 20 pt seen examined, no acute overnight events, his resp status improved overnight and lactic acidosis resolved (on abg lactate) Pt off bipap this AM but still has significant wheezing, very poor air entry and starla crackles, He is very sob on minimal activity continue steroids, antibiotics and nebulizer treatment continue bipap support Pertinent ROS: Denies headache, dizziness Denies chest pain, palpitations still has sob and cough. Denies abdominal pain, nausea or vomiting. - Constitutional Vitals: Vital Signs Temp Pulse Resp BP Pulse Ox 97.7 F 79 18 128/74 100 05/20/17 15:13 05/20/17 14:56 05/20/17 15:13 05/20/17 15:13 05/20/17 15:13 Period Temp Pulse Resp BP Sys/Maldonado Pulse Ox Last 24 Hr 97.5 F-98.6 F 75-129 13-27 121-165/50-103 90-100 Intake and Output 05/20/17 05/20/17 05/20/17 05:59 13:59 21:59 Intake Total 50 / 50 2080 / 2080 400 / 400 Output Total 1635 / 1635 180 / 180 300 / 300 Balance -1585 / -1585 1900 / 1900 100 / 100 Intake & Output: Intake & Output 05/20/17 05/20/17 05/20/17 05:59 13:59 21:59 Intake Total 50 / 50 2080 / 2080 400 / 400 Output Total 1635 / 1635 180 / 180 300 / 300 Balance -1585 / -1585 1900 / 1900 100 / 100 Intake: IV 50 / 50 1600 / 1600 Sodium Chloride 0.9% 1,000 ml @ 1000 / 1000 100 mls/hr IV .Q10H [facility] Rx#: [id number] Zosyn 3.375 gm In Dextrose 5% 50 / 50 100 / 100 in Water 50 ml @ 100 mls/hr IV Q6H [facility] Rx#:[id number] Vancomycin 1,500 mg In Sodium 500 / 500 Chloride 0.9% 500 ml @ 333.3 mls/hr IV Q24H [facility] Rx#: [id number] Oral 480 / 480 400 / 400 Output: Urine Catheter Amount 1635 / 1635 180 / 180 300 / 300 Other: Meal Breakfast Percent of Meal Consumed 50% Feeding Ability Assist with Tray Set Up Stool Size Moderate Stool Color Brown Stool Consistency Soft # Bowel Movements 1 Exam: Constitutional; Afebrile, cooperative, alert, not in distress. Eyes- No icterus, , No periorbital swelling Ears- Ext ear normal, hearing normal to conversation. Neck- Midline trachea, supple Respiratory system: Air Entry equal on both sides,significantly diminished air entry, starla crackles upto mid lung, starla exp wheezing. CVS- Rate normal to tachycardic rhythm irregular, S1,S2 heard, no gallop, no rub. Abdomen- Soft nontender abdomen, no organomegaly, no tenderness, no guarding or rigidity, [place] [employer]- AOOx3, moving all extremities, no gross focal deficit noted. Medical - PN: Obj Da - Labs CBC & Chem 7: 05/20/17 04:00 05/20/17 04:00 Labs: Abnormal Lab Results 05/20/17 05/20/17 05/20/17 04:00 04:00 04:00 WBC RBC 2.29 L Hgb 8.2 L Hct 24.6 L MCV 107.4 H MCH 35.8 H RDW 17.2 H Plt Count Gran % 85.2 H Lymph % (Auto) 4.4 L Gran # Lymph # (Auto) 0.2 L PT 27.3 H INR 2.5 H ABG Methemoglobin VBG pCO2 VBG pO2 VBG HCO3 VBG Total CO2 VBG O2 Saturation VBG Base Excess VBG Lactic Acid Carboxyhemoglobin Total Hemoglobin Carbon Dioxide 21 L Anion Gap BUN Glucose 147 H Calcium 7.1 L Total Bilirubin GGT 97 H Lactate Dehydrogenase Total Protein 5.0 L Albumin Globulin 1.8 L 05/19/17 05/19/17 05/19/17 18:27 18:27 09:21 WBC RBC 2.57 L Hgb 9.3 L Hct 27.7 L MCV 107.6 H MCH 36.1 H RDW 17.3 H Plt Count Gran % 93.2 H Lymph % (Auto) 2.5 L Gran # 9.2 H Lymph # (Auto) 0.2 L PT INR ABG Methemoglobin VBG pCO2 VBG pO2 VBG HCO3 VBG Total CO2 VBG O2 Saturation VBG Base Excess VBG Lactic Acid 3.7 H Carboxyhemoglobin Total Hemoglobin Carbon Dioxide 17 L Anion Gap 18.0 H BUN 24 H Glucose 186 H Calcium 7.4 L Total Bilirubin GGT Lactate Dehydrogenase Total Protein Albumin Globulin 05/19/17 05/19/17 05/19/17 08:30 08:30 06:30 WBC RBC Hgb Hct MCV MCH RDW Plt Count Gran % Lymph % (Auto) Gran # Lymph # (Auto) PT 24.7 H INR 2.2 H ABG Methemoglobin 0.3 L VBG pCO2 35.2 L VBG pO2 130 H VBG HCO3 19.3 L VBG Total CO2 20.4 L VBG O2 Saturation 94.8 H VBG Base Excess -5.6 L VBG Lactic Acid Carboxyhemoglobin 3.6 H Total Hemoglobin 9.2 L Carbon Dioxide Anion Gap BUN Glucose Calcium 7.5 L Total Bilirubin GGT Lactate Dehydrogenase Total Protein Albumin Globulin 05/19/17 05/19/17 05/18/17 04:05 04:05 08:56 WBC RBC 2.31 L Hgb 8.6 L Hct 24.9 L MCV 107.7 H MCH 37.0 H RDW 17.2 H Plt Count Gran % 93.3 H Lymph % (Auto) 3.1 L Gran # Lymph # (Auto) 0.2 L PT 23.4 H INR 2.1 H ABG Methemoglobin VBG pCO2 VBG pO2 VBG HCO3 VBG Total CO2 VBG O2 Saturation VBG Base Excess VBG Lactic Acid Carboxyhemoglobin Total Hemoglobin Carbon Dioxide 20 L Anion Gap BUN Glucose 165 H Calcium 11.3 H Total Bilirubin GGT 113 H Lactate Dehydrogenase 315 H Total Protein 5.2 L Albumin 3.0 L Globulin 05/18/17 05/18/17 05/18/17 08:56 08:56 08:56 WBC 15.0 H RBC 2.76 L Hgb 10.2 L Hct 29.8 L MCV 108.0 H MCH 37.0 H RDW 17.4 H Plt Count 483 H Gran % 85.8 H Lymph % (Auto) 5.5 L Gran # 12.8 H Lymph # (Auto) 0.8 L PT INR ABG Methemoglobin VBG pCO2 VBG pO2 VBG HCO3 VBG Total CO2 VBG O2 Saturation VBG Base Excess VBG Lactic Acid 3.1 H Carboxyhemoglobin Total Hemoglobin Carbon Dioxide Anion Gap BUN Glucose 118 H Calcium 8.3 L Total Bilirubin 1.4 H GGT Lactate Dehydrogenase Total Protein 5.7 L Albumin Globulin 2.1 L Meds: Medications Acetaminophen (Tylenol) 650 mg PO Q4-6HP PRN PRN Reason: PAIN/FEVER > 101 Last Admin: 05/20/17 12:19 Dose: 650 mg Albuterol/Ipratropium (Duoneb) 3 ml NEB Q4HRT [facility] Last Admin: 05/20/17 14:47 Dose: 3 ml Aspirin (Aspirin) 81 mg PO QDAY [facility] Last Admin: 05/20/17 08:10 Dose: 81 mg Budesonide (Pulmicort) 0.5 mg NEB Q12H [facility] Last Admin: 05/20/17 07:15 Dose: 0.5 mg Fluoxetine HCl (Prozac) 20 mg PO QDAY [facility] Last Admin: 05/20/17 08:10 Dose: 20 mg Fluticasone Propionate (Flonase) 2 spray NS BID [facility] Last Admin: 05/20/17 11:57 Dose: Not Given Gabapentin (Neurontin) 300 mg PO QAM [facility] Last Admin: 05/20/17 08:10 Dose: 300 mg Gabapentin (Neurontin) 600 mg PO HS [facility] Last Admin: 05/19/17 20:53 Dose: 600 mg Hydromorphone HCl (Dilaudid) 0.5 mg IV Q2HP PRN PRN Reason: PAIN LEVEL > 6 Last Admin: 05/19/17 19:18 Dose: 0.5 mg Piperacillin Sod/Tazobactam (Sod 3.375 gm/ Dextrose) 50 mls @ 100 mls/hr IV Q6H [facility] Last Infusion: 05/20/17 12:43 Dose: Infused Vancomycin HCl 1,500 mg/ (Sodium Chloride) 500 mls @ 333.3 mls/hr IV Q24H [facility] Last Infusion: 05/20/17 09:50 Dose: Infused Lorazepam (Ativan) 0.5 mg PO HSP PRN PRN Reason: ANXIETY/SEDATION Lorazepam (Ativan) 0.5 mg IV Q2HP PRN PRN Reason: ANXIETY/SEDATION Last Admin: 05/19/17 20:00 Dose: 0.5 mg Losartan Potassium (Cozaar) 25 mg PO DAILY [facility] Last Admin: 05/20/17 08:10 Dose: 25 mg Methylprednisolone Sodium Succinate (Solu-Medrol) 62.5 mg IV Q8 [facility] Last Admin: 05/20/17 14:52 Dose: 62.5 mg Naloxone HCl (Narcan) 0.1 mg IV Q2MIN PRN PRN Reason: Opiate Reversal Ondansetron HCl (Zofran) 4 mg IV Q4-6HP PRN PRN Reason: Nausea And Vomiting Pantoprazole Sodium (Protonix) 40 mg PO QAMAC [facility] Last Admin: 05/20/17 07:31 Dose: 40 mg Sodium Chloride (Saline Flush) 10 ml IV Q8 [facility] Last Admin: 05/20/17 14:53 Dose: 10 ml Vancomycin HCl (Vancomycin Per Pharmacy) 1 order IV UD [facility] Warfarin Sodium (Coumadin Per Pharmacy) 1 order PO UD [facility] - ABG Interpretation ABG results: 05/19/17 08:30 ABG Methemoglobin 0.3 L VBG pH 7.36 VBG pCO2 35.2 L VBG pO2 130 H VBG HCO3 19.3 L VBG Total CO2 20.4 L VBG O2 Saturation 94.8 H VBG Base Excess -5.6 L Medical - PN: A/P - Time Spent With Patient Total time spent is greater than 50% in coordination of care (as documented) at patient's floor/unit and/or counseling patient: - Narrative A/P Narrative: A/P Acute on chronic hypoxic respiratory failure Health care associated pneumonia. Atrial fibrillation Severe Sepsis Lactic Acidosis- resolved Congestive Heart failure COPD Eosinophic Pneumonia h/o CVA PVD Myelodysplastic Syndrome Depression Plan Monitor on tele IV fluids, BIPAP for resp support trend lactic acid, last lactate normal on abg last night. Supplement oxygen to keep osat > 90 Intubate if resp condition worsens Blood, sputum cx, sputum for PCP screen (has been on high dose prednisone recently) IV vancomycin and zosyn for HCAP pna to continue, IV fluids monitor urine output. IV steroids and duonebs for copd for now, steroids will also help if this is flare up of eosinophilic pneumonia. home meds resumed as appropriate DVT on Coumadin INr therapeutic, Cardiac Diet Full code. Medical - PN: Qual - VTE Deep Vein Thrombosis/Pulmonary Embolism Present on Admission: No
[2017-05-21] MEDS: IPRATROPIUM/ALBUTEROL 3 ML AMPUL.NEB NEB SCH ×7 (00:47→23:36)
[2017-05-21] MEDS: methylPREDNISolone SOD SUCC 125 MG/2 ML VIAL IV SCH ×4 (00:47→20:47)
[2017-05-21] MEDS: ACETAMINOPHEN 325 MG TABLET PO PRN ×4 (04:05→18:42)
[2017-05-21 05:02] LABS: ALT/SGPT 24 U/l (0-40); Albumin 3.2 gm/dL (3.2-5.2); Albumin/Globulin Ratio 1.7 (1.0-2.3); Alkaline Phosphatase 52 U/L (39-117); Bilirubin,Direct 0.3 mg/dL (0.0-0.3); Blood Urea Nitrogen 23 mg/dl (8-23); Gamma Glutamyl Transpeptidase 100 U/L (8-61); Uric Acid 4.2 mg/dL (2.5-8.0)
[2017-05-21] MEDS: PIPERACILLIN SODIUM/TAZOBACTAM 3.375 GM in DEXTROSE 5% IN WATER 50 ML IV SCH ×4 (05:21→17:28)
[2017-05-21] MEDS: 0.9 % SODIUM CHLORIDE 10 ML SYRINGE IV SCH ×4 (05:57→20:49)
[2017-05-21 06:33] LABS: Basophils # (Auto) 0 K/mcL (0.0-0.3); Basophils % (Auto) 0 % (0.0-2.0); Eosinophils # (Auto) 0.1 K/mcL (0.0-0.7); Eosinophils % (Auto) 1.1 % (0.0-7.0); Granulocytes % (Auto) 89.6 % (38.0-78.0); Lymphocytes # (Auto) 0.2 K/mcL (1.5-4.8); Lymphocytes % (Auto) 4.2 % (15.5-49.0); Mean Cell Volume 106.1 fL (80.0-100.0); Mean Corpuscular HGB Conc 33.8 g/dL (31.0-36.0); Mean Corpuscular Hemoglobin 35.9 pg (26.0-34.0); Monocytes # (Auto) 0.3 K/mcL (0.1-0.9); Monocytes % (Auto) 5.1 % (1.0-12.0); Platelet Count 317 K/mcL (140-440); RBC 2.33 M/mcL (4.50-5.90); Red Cell Distribution Width 17.6 % (11.5-14.5)
[2017-05-21] MEDS: BUDESONIDE 0.5 MG/2 ML AMPUL.NEB NEB SCH ×2 (06:40→21:17)
[2017-05-21] MEDS: PANTOPRAZOLE 40 MG TABLET PO SCH (08:01)
[2017-05-21] MEDS: LOSARTAN 25 MG TABLET PO SCH (08:02)
[2017-05-21] MEDS: FLUoxetine HCL 20 MG CAPSULE PO SCH (08:02)
[2017-05-21] MEDS: GABAPENTIN 300 MG CAPSULE PO SCH ×2 (08:02→20:48)
[2017-05-21] MEDS: ASPIRIN 81 MG TAB.CHEW PO SCH (08:02)
[2017-05-21] MEDS: FLUTICASONE PROPIONATE SPRAY.NAS NS SCH ×2 (08:19→20:41)
--- NOTE | 2017-05-21 08:38 | Internal Med Progress Note ---
Medical - PN: Subj Patient information: Note initiated : 05/21/17 at 8:33 am Service Date, if different from initiated Date: [] Patient: Benny Austin 86 y/o M admitted on 05/18/17 for Shortness of Breath/Pneumonia, Sepsis, Hypoxia. Chief Complaint: [] Interval history: Mr. Austin is a 86 year old Male with h/o eosinophilic pneumonia, follows with Dr wilder ,presents to the ER with complaints of not feeling well x 1 week. According the family the patient was not feeling well for nearly a week, he has been sick and tired, He fell down on tuesday, and was brought to the ER for evaluation, at that time he was confused, but it seems his workup was negative, including head ct and pelvis ct and chest x ray was negative, He was discharged home with pcp follow up After going home he was stable for a day or so and his condition continued to worsen again, he had chills, severe shortness of breath on exertion, inabiilty to walk short distances ( could walk 6 blocks with walker as per him before), fatied, subjective sensation of fever and chills with rigors. He has been having dry heaving and vomiting over the last few days, he has cough with yellowish sputum production. The patient was unable to get up out of the bed this AM and was very short of breath this morning and was therefore brought to the ER for further evaluation. in the ER the patient was febrile, temperature 102.3, tachycardic with a heart rate of 97, tachypneic with respirations between 22 and 28,. The blood pressure was stable, that was documented blood pressures 95/67. Chest x-ray is read as right lung pneumonia which is worsening, EKG is atrial fibrillation with right bundle-branch block, poor old age. ABG drawn shows pH of 7.43-PCO2 45. PO2 51-patient is on oxygen supplementation. Approximately 5 L. The patient's has leukocytosis with WBC count of 15, anemia with a hemoglobin of 10, platelet is 483, patient has normal chemistries, pro- calcitonin is elevated at 0.36, lactic acid is elevated at 3.1. The patient admits to be having some headaches intermittent, some dizziness, no changes in vision hearing, no difficulty in swallow he has shortness of breath on exertion, cough, chest pain on the left side where he fell down, has nausea and vomiting, no abdominal pain no constipation or diarrhea, no urinary complaints, denies any skin rashes or acute joint pains. He has hypersensitivity of his toes in the lower extremity, Raynaud's-like phenomenon. I reviewed the CODE STATUS with the patient and the family and the patient wishes to be full code may 19 Patient seen exained, this AM was sitting in the chair, off oxygen, and was donig well he has shortness of breath with minimal exertion, but otherwise felt better. He had no acute overnight events, microbiology is negative. This PM his condition worsened, he became suddenly short of breath, in resp distress, starla exp wheezing, abg showed acute hypoxic resp failure, lactic acid level was 6.6 pt given duonebs, placed on bipap, iv lasix and iv morhpine given patient still bit anxious, iv ativan 0.5mg added pt x ray shows worsneing pna. may 20 pt seen examined, no acute overnight events, his resp status improved overnight and lactic acidosis resolved (on abg lactate) Pt off bipap this AM but still has significant wheezing, very poor air entry and starla crackles, He is very sob on minimal activity continue steroids, antibiotics and nebulizer treatment continue bipap support 05/21-patient seen in room along with family including . Sitting on chair. No overnight events. tolerated BiPAP fairly well. Currently off BiPAP eating breakfast. Foleys draining bloody urine. Tachycardic around 120s. On 1 L oxygen. No concerns discussed with nursing staff. eating breakfast himself. Feeling better. No fever chills nausea vomiting or worsening shortness of breath. - Constitutional Vitals: Vital Signs Temp Pulse Resp BP Pulse Ox 98.0 F 79 16 122/81 100 05/21/17 07:09 05/21/17 06:40 05/21/17 07:09 05/21/17 07:09 05/21/17 07:09 Period Temp Pulse Resp BP Sys/Maldonado Pulse Ox Last 24 Hr 97.7 F-98.5 F 77-129 15-20 122-140/62-98 99-100 Intake and Output 05/20/17 05/21/17 05/21/17 21:59 05:59 13:59 Intake Total 2009 400 / 400 Output Total 400 / 400 850 / 850 Balance 1610 / 1610 -450 / -450 Weight 175 lb 1.6 oz Intake & Output: Intake & Output 05/20/17 05/21/17 05/21/17 21:59 05:59 13:59 Intake Total 2009 400 / 400 Output Total 400 / 400 850 / 850 Balance 1610 / 1610 -450 / -450 Weight 175 lb 1.6 oz Intake: IV 1050 / 1050 100 / 100 Zosyn 3.375 gm In Dextrose 5% 50 / 50 100 / 100 in Water 50 ml @ 100 mls/hr IV Q6H [facility] Rx#:[id number] Oral 960 / 960 300 / 300 Output: Urine Catheter Amount 400 / 400 850 / 850 Other: Meal Dinner Percent of Meal Consumed 75% Feeding Ability Independent Stool Size Moderate Stool Color Brown Stool Consistency Loose # Bowel Movements 1 General appearance: cooperative, no acute distress Exam: alert oriented no telemetry events No anxiety Nonlabored breathing Nondistended abdomen Foleys draining bloody urine Medical - PN: Obj Da - Labs CBC & Chem 7: 05/21/17 04:03 05/21/17 04:03 Labs: Abnormal Lab Results 05/21/17 05/21/17 05/21/17 04:03 04:03 04:03 WBC RBC 2.33 L Hgb 8.4 L Hct 24.7 L MCV 106.1 H MCH 35.9 H RDW 17.6 H Plt Count Gran % 89.6 H Lymph % (Auto) 4.2 L Gran # Lymph # (Auto) 0.2 L PT 38.7 H INR 3.9 H ABG Methemoglobin VBG pCO2 VBG pO2 VBG HCO3 VBG Total CO2 VBG O2 Saturation VBG Base Excess VBG Lactic Acid Carboxyhemoglobin Total Hemoglobin Carbon Dioxide Anion Gap BUN Glucose 154 H Calcium 7.2 L Phosphorus 2.6 L Total Bilirubin GGT 100 H Lactate Dehydrogenase Total Protein 5.1 L Albumin Globulin 1.9 L Triglycerides 157 H 05/20/17 05/20/17 05/20/17 04:00 04:00 04:00 WBC RBC 2.29 L Hgb 8.2 L Hct 24.6 L MCV 107.4 H MCH 35.8 H RDW 17.2 H Plt Count Gran % 85.2 H Lymph % (Auto) 4.4 L Gran # Lymph # (Auto) 0.2 L PT 27.3 H INR 2.5 H ABG Methemoglobin VBG pCO2 VBG pO2 VBG HCO3 VBG Total CO2 VBG O2 Saturation VBG Base Excess VBG Lactic Acid Carboxyhemoglobin Total Hemoglobin Carbon Dioxide 21 L Anion Gap BUN Glucose 147 H Calcium 7.1 L Phosphorus Total Bilirubin GGT 97 H Lactate Dehydrogenase Total Protein 5.0 L Albumin Globulin 1.8 L Triglycerides 05/19/17 05/19/17 05/19/17 18:27 18:27 09:21 WBC RBC 2.57 L Hgb 9.3 L Hct 27.7 L MCV 107.6 H MCH 36.1 H RDW 17.3 H Plt Count Gran % 93.2 H Lymph % (Auto) 2.5 L Gran # 9.2 H Lymph # (Auto) 0.2 L PT INR ABG Methemoglobin VBG pCO2 VBG pO2 VBG HCO3 VBG Total CO2 VBG O2 Saturation VBG Base Excess VBG Lactic Acid 3.7 H Carboxyhemoglobin Total Hemoglobin Carbon Dioxide 17 L Anion Gap 18.0 H BUN 24 H Glucose 186 H Calcium 7.4 L Phosphorus Total Bilirubin GGT Lactate Dehydrogenase Total Protein Albumin Globulin Triglycerides 05/19/17 05/19/17 05/19/17 08:30 08:30 06:30 WBC RBC Hgb Hct MCV MCH RDW Plt Count Gran % Lymph % (Auto) Gran # Lymph # (Auto) PT 24.7 H INR 2.2 H ABG Methemoglobin 0.3 L VBG pCO2 35.2 L VBG pO2 130 H VBG HCO3 19.3 L VBG Total CO2 20.4 L VBG O2 Saturation 94.8 H VBG Base Excess -5.6 L VBG Lactic Acid Carboxyhemoglobin 3.6 H Total Hemoglobin 9.2 L Carbon Dioxide Anion Gap BUN Glucose Calcium 7.5 L Phosphorus Total Bilirubin GGT Lactate Dehydrogenase Total Protein Albumin Globulin Triglycerides 05/19/17 05/19/17 05/18/17 04:05 04:05 08:56 WBC RBC 2.31 L Hgb 8.6 L Hct 24.9 L MCV 107.7 H MCH 37.0 H RDW 17.2 H Plt Count Gran % 93.3 H Lymph % (Auto) 3.1 L Gran # Lymph # (Auto) 0.2 L PT 23.4 H INR 2.1 H ABG Methemoglobin VBG pCO2 VBG pO2 VBG HCO3 VBG Total CO2 VBG O2 Saturation VBG Base Excess VBG Lactic Acid Carboxyhemoglobin Total Hemoglobin Carbon Dioxide 20 L Anion Gap BUN Glucose 165 H Calcium 11.3 H Phosphorus Total Bilirubin GGT 113 H Lactate Dehydrogenase 315 H Total Protein 5.2 L Albumin 3.0 L Globulin Triglycerides 05/18/17 05/18/17 05/18/17 08:56 08:56 08:56 WBC 15.0 H RBC 2.76 L Hgb 10.2 L Hct 29.8 L MCV 108.0 H MCH 37.0 H RDW 17.4 H Plt Count 483 H Gran % 85.8 H Lymph % (Auto) 5.5 L Gran # 12.8 H Lymph # (Auto) 0.8 L PT INR ABG Methemoglobin VBG pCO2 VBG pO2 VBG HCO3 VBG Total CO2 VBG O2 Saturation VBG Base Excess VBG Lactic Acid 3.1 H Carboxyhemoglobin Total Hemoglobin Carbon Dioxide Anion Gap BUN Glucose 118 H Calcium 8.3 L Phosphorus Total Bilirubin 1.4 H GGT Lactate Dehydrogenase Total Protein 5.7 L Albumin Globulin 2.1 L Triglycerides Meds: Medications Acetaminophen (Tylenol) 650 mg PO Q4-6HP PRN PRN Reason: PAIN/FEVER > 101 Last Admin: 05/21/17 04:05 Dose: 650 mg Albuterol/Ipratropium (Duoneb) 3 ml NEB Q4HRT [facility] Last Admin: 05/21/17 06:40 Dose: 3 ml Aspirin (Aspirin) 81 mg PO QDAY [facility] Last Admin: 05/21/17 08:02 Dose: 81 mg Budesonide (Pulmicort) 0.5 mg NEB Q12H [facility] Last Admin: 05/21/17 06:40 Dose: 0.5 mg Fluoxetine HCl (Prozac) 20 mg PO QDAY [facility] Last Admin: 05/21/17 08:02 Dose: 20 mg Fluticasone Propionate (Flonase) 2 spray NS BID [facility] Last Admin: 05/21/17 08:19 Dose: Not Given Gabapentin (Neurontin) 300 mg PO QAM [facility] Last Admin: 05/21/17 08:02 Dose: 300 mg Gabapentin (Neurontin) 600 mg PO HS [facility] Last Admin: 05/20/17 21:52 Dose: 600 mg Hydromorphone HCl (Dilaudid) 0.5 mg IV Q2HP PRN PRN Reason: PAIN LEVEL > 6 Last Admin: 05/19/17 19:18 Dose: 0.5 mg Piperacillin Sod/Tazobactam (Sod 3.375 gm/ Dextrose) 50 mls @ 100 mls/hr IV Q6H [facility] Last Infusion: 05/21/17 05:58 Dose: Infused Vancomycin HCl 1,500 mg/ (Sodium Chloride) 500 mls @ 333.3 mls/hr IV Q24H [facility] Last Infusion: 05/20/17 09:50 Dose: Infused Lorazepam (Ativan) 0.5 mg PO HSP PRN PRN Reason: ANXIETY/SEDATION Last Admin: 05/20/17 21:53 Dose: 0.5 mg Lorazepam (Ativan) 0.5 mg IV Q2HP PRN PRN Reason: ANXIETY/SEDATION Last Admin: 05/19/17 20:00 Dose: 0.5 mg Losartan Potassium (Cozaar) 25 mg PO DAILY [facility] Last Admin: 05/21/17 08:02 Dose: 25 mg Methylprednisolone Sodium Succinate (Solu-Medrol) 62.5 mg IV Q8 [facility] Last Admin: 05/21/17 05:25 Dose: 62.5 mg Naloxone HCl (Narcan) 0.1 mg IV Q2MIN PRN PRN Reason: Opiate Reversal Ondansetron HCl (Zofran) 4 mg IV Q4-6HP PRN PRN Reason: Nausea And Vomiting Pantoprazole Sodium (Protonix) 40 mg PO QAMAC [facility] Last Admin: 05/21/17 08:01 Dose: 40 mg Sodium Chloride (Saline Flush) 10 ml IV Q8 [facility] Last Admin: 05/21/17 05:57 Dose: 10 ml Vancomycin HCl (Vancomycin Per Pharmacy) 1 order IV UD [facility] Warfarin Sodium (Coumadin Per Pharmacy) 1 order PO UD [facility] - ABG Interpretation ABG results: 05/19/17 08:30 ABG Methemoglobin 0.3 L VBG pH 7.36 VBG pCO2 35.2 L VBG pO2 130 H VBG HCO3 19.3 L VBG Total CO2 20.4 L VBG O2 Saturation 94.8 H VBG Base Excess -5.6 L Medical - PN: A/P - Time Spent With Patient Total time spent is greater than 50% in coordination of care (as documented) at patient's floor/unit and/or counseling patient: Greater than 35 minutes (critical care time) - Narrative A/P Narrative: A/P * Acute on chronic hypoxic respiratory failure- currently managed on noninvasive ventilation. Wean as tolerated. Clinically improving * Health care associated pneumonia- continue vancomycin and Zosyn. Cultures negative so far. white count down to 5000. * Atrial fibrillation-rate controlled.on Coumadin for CVA prophylaxis * Severe Sepsis-clinically resolved. actic acid normalized. * Congestive Heart failure-well compensated * COPD -On supplemental oxygen/steroid/bronchodilators * Eosinophic Pneumonia * h/o CVA/PVD -on Coumadin * Neuropathy on gabapentin * Hypertension on lisinopril * Myelodysplastic Syndrome-no acute change * Depression/anxiety on lorazepam/fluoxetine Plan * continue antibiotic coverage * Wean BiPAP as tolerated * Pre-existing medical condition management as above * coumadin dosing based on INR * Full code. Medical - PN: Qual - VTE Deep Vein Thrombosis/Pulmonary Embolism Present on Admission: No
[2017-05-21] MEDS ORDERED: TAMSULOSIN 0.4 MG CAPSULE PO ONE (10:38)
[2017-05-21] MEDS: VANCOMYCIN 1,500 MG in 0.9 % SODIUM CHLORIDE 500 ML IV SCH (10:57)
[2017-05-21] MEDS: HYDROmorphone 2 MG/ML VIAL IV PRN (11:09)
[2017-05-21] MEDS: LORazepam 2 MG/ML VIAL IV PRN ×2 (16:10→20:48)
[2017-05-22] MEDS: PIPERACILLIN SODIUM/TAZOBACTAM 3.375 GM in DEXTROSE 5% IN WATER 50 ML IV SCH ×5 (00:10→23:52)
[2017-05-22] MEDS: IPRATROPIUM/ALBUTEROL 3 ML AMPUL.NEB NEB SCH ×6 (03:00→22:51)
[2017-05-22] MEDS: 0.9 % SODIUM CHLORIDE 10 ML SYRINGE IV SCH ×3 (05:47→21:44)
[2017-05-22] MEDS: methylPREDNISolone SOD SUCC 125 MG/2 ML VIAL IV SCH (05:51)
[2017-05-22 06:57] LABS: Basophils # (Auto) 0 K/mcL (0.0-0.3); Basophils % (Auto) 0 % (0.0-2.0); Eosinophils # (Auto) 0.1 K/mcL (0.0-0.7); Eosinophils % (Auto) 2.8 % (0.0-7.0); Granulocytes % (Auto) 87.8 % (38.0-78.0); Lymphocytes # (Auto) 0.3 K/mcL (1.5-4.8); Mean Cell Volume 107.3 fL (80.0-100.0); Mean Corpuscular HGB Conc 33.7 g/dL (31.0-36.0); Mean Corpuscular Hemoglobin 36.2 pg (26.0-34.0); Monocytes # (Auto) 0.2 K/mcL (0.1-0.9); Monocytes % (Auto) 4.4 % (1.0-12.0); Platelet Count 369 K/mcL (140-440); RBC 2.43 M/mcL (4.50-5.90); Red Cell Distribution Width 17.9 % (11.5-14.5)
[2017-05-22] MEDS: BUDESONIDE 0.5 MG/2 ML AMPUL.NEB NEB SCH ×2 (07:00→21:02)
[2017-05-22 07:25] LABS: ALT/SGPT 27 U/l (0-40); Albumin 3.2 gm/dL (3.2-5.2); Albumin/Globulin Ratio 1.8 (1.0-2.3); Alkaline Phosphatase 47 U/L (39-117); Bilirubin,Direct 0.3 mg/dL (0.0-0.3); Blood Urea Nitrogen 26 mg/dl (8-23); Gamma Glutamyl Transpeptidase 109 U/L (8-61); Uric Acid 4.1 mg/dL (2.5-8.0)
[2017-05-22] MEDS: PANTOPRAZOLE 40 MG TABLET PO SCH (08:26)
[2017-05-22] MEDS: ACETAMINOPHEN 325 MG TABLET PO PRN ×3 (09:27→21:44)
[2017-05-22] MEDS: LOSARTAN 25 MG TABLET PO SCH (09:28)
[2017-05-22] MEDS: FLUoxetine HCL 20 MG CAPSULE PO SCH (09:28)
[2017-05-22] MEDS: GABAPENTIN 300 MG CAPSULE PO SCH (09:28)
[2017-05-22] MEDS: VANCOMYCIN 1,500 MG in 0.9 % SODIUM CHLORIDE 500 ML IV SCH (09:28)
[2017-05-22] MEDS: ASPIRIN 81 MG TAB.CHEW PO SCH (09:28)
[2017-05-22] MEDS: FLUTICASONE PROPIONATE SPRAY.NAS NS SCH ×2 (09:29→21:44)
--- NOTE | 2017-05-22 09:44 | Internal Med Progress Note ---
Medical - PN: Subj Patient information: Note initiated : 05/22/17 at 9:41 am Service Date, if different from initiated Date: [] Patient: Benny Austin 86 y/o M admitted on 05/18/17 for Shortness of Breath/Pneumonia, Sepsis, Hypoxia. Chief Complaint: [] Interval history: Mr. Austin is a 86 year old Male with h/o eosinophilic pneumonia, follows with Dr wilder ,presents to the ER with complaints of not feeling well x 1 week. According the family the patient was not feeling well for nearly a week, he has been sick and tired, He fell down on tuesday, and was brought to the ER for evaluation, at that time he was confused, but it seems his workup was negative, including head ct and pelvis ct and chest x ray was negative, He was discharged home with pcp follow up After going home he was stable for a day or so and his condition continued to worsen again, he had chills, severe shortness of breath on exertion, inabiilty to walk short distances ( could walk 6 blocks with walker as per him before), fatied, subjective sensation of fever and chills with rigors. He has been having dry heaving and vomiting over the last few days, he has cough with yellowish sputum production. The patient was unable to get up out of the bed this AM and was very short of breath this morning and was therefore brought to the ER for further evaluation. in the ER the patient was febrile, temperature 102.3, tachycardic with a heart rate of 97, tachypneic with respirations between 22 and 28,. The blood pressure was stable, that was documented blood pressures 95/67. Chest x-ray is read as right lung pneumonia which is worsening, EKG is atrial fibrillation with right bundle-branch block, poor old age. ABG drawn shows pH of 7.43-PCO2 45. PO2 51-patient is on oxygen supplementation. Approximately 5 L. The patient's has leukocytosis with WBC count of 15, anemia with a hemoglobin of 10, platelet is 483, patient has normal chemistries, pro- calcitonin is elevated at 0.36, lactic acid is elevated at 3.1. The patient admits to be having some headaches intermittent, some dizziness, no changes in vision hearing, no difficulty in swallow he has shortness of breath on exertion, cough, chest pain on the left side where he fell down, has nausea and vomiting, no abdominal pain no constipation or diarrhea, no urinary complaints, denies any skin rashes or acute joint pains. He has hypersensitivity of his toes in the lower extremity, Raynaud's-like phenomenon. I reviewed the CODE STATUS with the patient and the family and the patient wishes to be full code may 19 Patient seen exained, this AM was sitting in the chair, off oxygen, and was donig well he has shortness of breath with minimal exertion, but otherwise felt better. He had no acute overnight events, microbiology is negative. This PM his condition worsened, he became suddenly short of breath, in resp distress, starla exp wheezing, abg showed acute hypoxic resp failure, lactic acid level was 6.6 pt given duonebs, placed on bipap, iv lasix and iv morhpine given patient still bit anxious, iv ativan 0.5mg added pt x ray shows worsneing pna. may 20 pt seen examined, no acute overnight events, his resp status improved overnight and lactic acidosis resolved (on abg lactate) Pt off bipap this AM but still has significant wheezing, very poor air entry and starla crackles, He is very sob on minimal activity continue steroids, antibiotics and nebulizer treatment continue bipap support 05/21-patient seen in room along with family including . Sitting on chair. No overnight events. tolerated BiPAP fairly well. Currently off BiPAP eating breakfast. Foleys draining bloody urine. Tachycardic around 120s. On 1 L oxygen. No concerns discussed with nursing staff. eating breakfast himself. Feeling better. No fever chills nausea vomiting or worsening shortness of breath. 05/22- patient doing well. patient off BiPAP.1.5 L oxygen. Feeling a lot better. No overnight events including fever chills chest pain shortness of breath. at bedside. No agitation concerns. Tolerating diet. Tolerated physical therapy. iNR 3.8 - Constitutional Vitals: Vital Signs Temp Pulse Resp BP Pulse Ox 97.4 F 68 16 137/88 100 05/22/17 08:00 05/22/17 07:00 05/22/17 08:00 05/22/17 08:00 05/22/17 08:00 Period Temp Pulse Resp BP Sys/[place] Pulse Ox Last 24 Hr 97.4 F-98.8 F 68-110 12-22 120-151/68-88 95-100 Intake and Output 05/21/17 05/22/17 05/22/17 20:59 05:59 13:59 Intake Total 290 / 290 Output Total Balance 290 / 290 Weight Intake & Output: Intake & Output 05/21/17 05/22/17 05/22/17 20:59 05:59 13:59 Intake Total 290 / 290 Output Total Balance 290 / 290 Weight Intake: IV 50 / 50 Zosyn 3.375 gm In Dextrose 5% 50 / 50 in Water 50 ml @ 100 mls/hr IV Q6H [facility] Rx#:[id number] Oral 240 / 240 Output: Void Amount Other: Meal Breakfast Percent of Meal Consumed 50% Feeding Ability Independent Stool Size Moderate Stool Color Brown Stool Consistency Soft # Voids # Bowel Movements 1 General appearance: cooperative, no acute distress Exam: nonlabored breathing nondistended abdomen No telemetry events No anxiety No pallor Medical - PN: Obj Da - Labs CBC & Chem 7: 05/22/17 04:00 05/22/17 04:00 Labs: Abnormal Lab Results 05/22/17 05/22/17 05/22/17 04:00 04:00 04:00 RBC 2.43 L Hgb 8.8 L Hct 26.1 L MCV 107.3 H MCH 36.2 H RDW 17.9 H Gran % 87.8 H Lymph % (Auto) 5.0 L Gran # Lymph # (Auto) 0.3 L PT 38.4 H INR 3.8 H ABG Methemoglobin VBG pCO2 VBG pO2 VBG HCO3 VBG Total CO2 VBG O2 Saturation VBG Base Excess VBG Lactic Acid Carboxyhemoglobin Total Hemoglobin Carbon Dioxide Anion Gap BUN 26 H Glucose 175 H Calcium 7.6 L Phosphorus 2.5 L GGT 109 H Total Protein 5.0 L Globulin 1.8 L Triglycerides 175 H 05/21/17 05/21/17 05/21/17 04:03 04:03 04:03 RBC 2.33 L Hgb 8.4 L Hct 24.7 L MCV 106.1 H MCH 35.9 H RDW 17.6 H Gran % 89.6 H Lymph % (Auto) 4.2 L Gran # Lymph # (Auto) 0.2 L PT 38.7 H INR 3.9 H ABG Methemoglobin VBG pCO2 VBG pO2 VBG HCO3 VBG Total CO2 VBG O2 Saturation VBG Base Excess VBG Lactic Acid Carboxyhemoglobin Total Hemoglobin Carbon Dioxide Anion Gap BUN Glucose 154 H Calcium 7.2 L Phosphorus 2.6 L GGT 100 H Total Protein 5.1 L Globulin 1.9 L Triglycerides 157 H 05/20/17 05/20/17 05/20/17 04:00 04:00 04:00 RBC 2.29 L Hgb 8.2 L Hct 24.6 L MCV 107.4 H MCH 35.8 H RDW 17.2 H Gran % 85.2 H Lymph % (Auto) 4.4 L Gran # Lymph # (Auto) 0.2 L PT 27.3 H INR 2.5 H ABG Methemoglobin VBG pCO2 VBG pO2 VBG HCO3 VBG Total CO2 VBG O2 Saturation VBG Base Excess VBG Lactic Acid Carboxyhemoglobin Total Hemoglobin Carbon Dioxide 21 L Anion Gap BUN Glucose 147 H Calcium 7.1 L Phosphorus GGT 97 H Total Protein 5.0 L Globulin 1.8 L Triglycerides 05/19/17 05/19/17 05/19/17 18:27 18:27 09:21 RBC 2.57 L Hgb 9.3 L Hct 27.7 L MCV 107.6 H MCH 36.1 H RDW 17.3 H Gran % 93.2 H Lymph % (Auto) 2.5 L Gran # 9.2 H Lymph # (Auto) 0.2 L PT INR ABG Methemoglobin VBG pCO2 VBG pO2 VBG HCO3 VBG Total CO2 VBG O2 Saturation VBG Base Excess VBG Lactic Acid 3.7 H Carboxyhemoglobin Total Hemoglobin Carbon Dioxide 17 L Anion Gap 18.0 H BUN 24 H Glucose 186 H Calcium 7.4 L Phosphorus GGT Total Protein Globulin Triglycerides 05/19/17 05/19/17 08:30 08:30 RBC Hgb Hct MCV MCH RDW Gran % Lymph % (Auto) Gran # Lymph # (Auto) PT INR ABG Methemoglobin 0.3 L VBG pCO2 35.2 L VBG pO2 130 H VBG HCO3 19.3 L VBG Total CO2 20.4 L VBG O2 Saturation 94.8 H VBG Base Excess -5.6 L VBG Lactic Acid Carboxyhemoglobin 3.6 H Total Hemoglobin 9.2 L Carbon Dioxide Anion Gap BUN Glucose Calcium 7.5 L Phosphorus GGT Total Protein Globulin Triglycerides Meds: Medications Acetaminophen (Tylenol) 650 mg PO Q4-6HP PRN PRN Reason: PAIN/FEVER > 101 Last Admin: 05/22/17 09:27 Dose: 650 mg Albuterol/Ipratropium (Duoneb) 3 ml NEB Q4HRT [facility] Last Admin: 05/22/17 07:00 Dose: 3 ml Aspirin (Aspirin) 81 mg PO QDAY [facility] Last Admin: 05/22/17 09:28 Dose: 81 mg Budesonide (Pulmicort) 0.5 mg NEB Q12H [facility] Last Admin: 05/22/17 07:00 Dose: 0.5 mg Fluoxetine HCl (Prozac) 20 mg PO QDAY [facility] Last Admin: 05/22/17 09:28 Dose: 20 mg Fluticasone Propionate (Flonase) 2 spray NS BID [facility] Last Admin: 05/22/17 09:29 Dose: Not Given Gabapentin (Neurontin) 300 mg PO QAM [facility] Last Admin: 05/22/17 09:28 Dose: 300 mg Gabapentin (Neurontin) 600 mg PO HS [facility] Last Admin: 05/21/17 20:48 Dose: 600 mg Hydromorphone HCl (Dilaudid) 0.5 mg IV Q2HP PRN PRN Reason: PAIN LEVEL > 6 Last Admin: 05/21/17 11:09 Dose: 0.5 mg Piperacillin Sod/Tazobactam (Sod 3.375 gm/ Dextrose) 50 mls @ 100 mls/hr IV Q6H [facility] Last Infusion: 05/22/17 06:17 Dose: Infused Vancomycin HCl 1,500 mg/ (Sodium Chloride) 500 mls @ 333.3 mls/hr IV Q24H [facility] Last Admin: 05/22/17 09:28 Dose: 300 mls/hr Lorazepam (Ativan) 0.5 mg PO HSP PRN PRN Reason: ANXIETY/SEDATION Last Admin: 05/20/17 21:53 Dose: 0.5 mg Lorazepam (Ativan) 0.5 mg IV Q2HP PRN PRN Reason: ANXIETY/SEDATION Last Admin: 05/21/17 20:48 Dose: 0.5 mg Losartan Potassium (Cozaar) 25 mg PO DAILY [facility] Last Admin: 05/22/17 09:28 Dose: 25 mg Methylprednisolone Sodium Succinate (Solu-Medrol) 62.5 mg IV Q8 [facility] Last Admin: 05/22/17 05:51 Dose: 62.5 mg Naloxone HCl (Narcan) 0.1 mg IV Q2MIN PRN PRN Reason: Opiate Reversal Ondansetron HCl (Zofran) 4 mg IV Q4-6HP PRN PRN Reason: Nausea And Vomiting Pantoprazole Sodium (Protonix) 40 mg PO QAMAC [facility] Last Admin: 05/22/17 08:26 Dose: 40 mg Sodium Chloride (Saline Flush) 10 ml IV Q8 [facility] Last Admin: 05/22/17 05:47 Dose: 10 ml Vancomycin HCl (Vancomycin Per Pharmacy) 1 order IV UD [facility] Warfarin Sodium (Coumadin Per Pharmacy) 1 order PO UD [facility] - ABG Interpretation ABG results: 05/19/17 08:30 ABG Methemoglobin 0.3 L VBG pH 7.36 VBG pCO2 35.2 L VBG pO2 130 H VBG HCO3 19.3 L VBG Total CO2 20.4 L VBG O2 Saturation 94.8 H VBG Base Excess -5.6 L Medical - PN: A/P - Time Spent With Patient Total time spent is greater than 50% in coordination of care (as documented) at patient's floor/unit and/or counseling patient: 15 - 24 minutes - Narrative A/P Narrative: A/P * Acute on chronic hypoxic respiratory failure- off noninvasive ventilation. Continue nasal cannula oxygen. Much improved. * Health care associated pneumonia- continue vancomycin and Zosyn. Cultures negative so far. DC antibiotics and 24 hours * Atrial fibrillation-rate controlled.on Coumadin for CVA prophylaxis. INR 3.8 * Severe Sepsis-clinically resolved. 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 Medical - PN: Qual - VTE Deep Vein Thrombosis/Pulmonary Embolism Present on Admission: No
[2017-05-22] MEDS ORDERED: ONDANSETRON 4 MG/2 ML VIAL IV PRN (11:15)
[2017-05-22] MEDS ORDERED: LORazepam 2 MG/ML VIAL IV PRN (11:15)
[2017-05-22] MEDS ORDERED: HYDROmorphone 2 MG/ML VIAL IV PRN (11:15)
[2017-05-22] MEDS ORDERED: VANCOMYCIN PER PHARMACY IV SCH (11:15)
[2017-05-22] MEDS ORDERED: NALOXONE HCL 0.4 MG/ML VIAL IV PRN (11:15)
[2017-05-22] MEDS: predniSONE 20 MG TABLET PO SCH (12:28)
[2017-05-22] MEDS ORDERED: LORazepam 0.5 MG TABLET PO PRN (21:00)
[2017-05-22] MEDS ORDERED: GABAPENTIN 300 MG CAPSULE PO SCH (21:00)
[2017-05-23] MEDS: IPRATROPIUM/ALBUTEROL 3 ML AMPUL.NEB NEB SCH ×3 (03:52→11:26)
[2017-05-23] MEDS: ACETAMINOPHEN 325 MG TABLET PO PRN (05:29)
[2017-05-23] MEDS: 0.9 % SODIUM CHLORIDE 10 ML SYRINGE IV SCH (05:30)
[2017-05-23] MEDS: PIPERACILLIN SODIUM/TAZOBACTAM 3.375 GM in DEXTROSE 5% IN WATER 50 ML IV SCH (05:39)
[2017-05-23 06:03] LABS: ALT/SGPT 32 U/l (0-40); Albumin/Globulin Ratio 1.6 (1.0-2.3); Alkaline Phosphatase 43 U/L (39-117); Basophils # (Auto) 0 K/mcL (0.0-0.3); Basophils % (Auto) 0.1 % (0.0-2.0); Bilirubin,Direct 0.3 mg/dL (0.0-0.3); Blood Urea Nitrogen 24 mg/dl (8-23); Eosinophils # (Auto) 0.2 K/mcL (0.0-0.7); Eosinophils % (Auto) 2.4 % (0.0-7.0); Gamma Glutamyl Transpeptidase 109 U/L (8-61); Granulocytes % (Auto) 83.2 % (38.0-78.0); Lymphocytes # (Auto) 0.4 K/mcL (1.5-4.8); Lymphocytes % (Auto) 6.2 % (15.5-49.0); Mean Cell Volume 106.1 fL (80.0-100.0); Mean Corpuscular HGB Conc 33.7 g/dL (31.0-36.0); Mean Corpuscular Hemoglobin 35.7 pg (26.0-34.0); Monocytes # (Auto) 0.6 K/mcL (0.1-0.9); Monocytes % (Auto) 8.1 % (1.0-12.0); Platelet Count 407 K/mcL (140-440); RBC 2.47 M/mcL (4.50-5.90); Red Cell Distribution Width 17.4 % (11.5-14.5); Uric Acid 3.8 mg/dL (2.5-8.0)
[2017-05-23] MEDS ORDERED: PANTOPRAZOLE 40 MG TABLET PO SCH (07:30)
[2017-05-23] MEDS: BUDESONIDE 0.5 MG/2 ML AMPUL.NEB NEB SCH (08:07)
[2017-05-23] MEDS ORDERED: ASPIRIN 81 MG TAB.CHEW PO SCH (09:00)
[2017-05-23] MEDS ORDERED: VANCOMYCIN 1,500 MG in 0.9 % SODIUM CHLORIDE 500 ML IV SCH (09:00)
[2017-05-23] MEDS ORDERED: LOSARTAN 25 MG TABLET PO SCH (09:00)
[2017-05-23] MEDS ORDERED: GABAPENTIN 300 MG CAPSULE PO SCH (09:00)
[2017-05-23] MEDS ORDERED: FLUoxetine HCL 20 MG CAPSULE PO SCH (09:00)
[2017-05-23] MEDS: predniSONE 20 MG TABLET PO SCH (09:46)
--- NOTE | 2017-05-23 10:10 | Discharge Summary ---
Medical - DS: Prov Patient information: Note initiated : 05/23/17 at 10:08 am Service Date, if different from initiated Date: [] Patient: Benny Asutin 86 y/o M admitted on 05/18/17 for Shortness of Breath/Pneumonia, Sepsis, Hypoxia. Chief Complaint: [] Date of admission: 05/18/17 12:39 Discharge date: 05/23/17 Primary care physician: Gaviota Mercedes Consults: 05/18/17 10:46 Consult to Physician [CONS] Stat Comment: Consulting Provider: Jackelyn Sesay Reason For Exam: Admit Medical - DS: Meds - Discharge Medications Active and Home Medications: Home Medications albuterol sulfate HFA 90 mcg/actuation aerosol inhaler 2 puff INHALATION .COMPLEX g 09/02/14 [History Confirmed 05/18/17 Last Taken 11/11/16 2 PUFFS] aspirin 81 mg chewable tablet 81 mg PO QDAY tab 09/02/14 [History Confirmed 09/28 Last Taken 05/17/17 08:00] budesonide 0.5 mg/2 mL suspension for nebulization 0.5 mg INHALATION Q12H ml [History Confirmed 05/18/17 Last Taken 11/11/16 0.5 MG.] traMADol [Ultram] 50 mg PO Q6HP PRN 09/06/15 [History Confirmed 05/18/17 Last Taken Unknown] fluticasone 50 mcg/actuation nasal spray,suspension 2 spray INTRANASAL BID #16 g 04/02/16 [Rx Confirmed 05/18/17 Last Taken Unknown] Gabapentin [Neurontin] 600 mg PO HS 11/11/16 [History Confirmed 05/18/17 Last Taken 05/17/17 20:00] fluoxetine 20 mg capsule 20 mg PO QDAY #90 cap 11/19/16 [Rx Confirmed 05/18/17 Last Taken 05/17/17 20:00] acetaminophen 325 mg tablet 650 mg PO QHS PRN tab 12/20/16 [History Confirmed 05/18/17 Last Taken 05/17/17 21:00] losartan 50 mg tablet 25 mg PO QDAY #45 tab 01/07/17 [Rx Confirmed 05/18/17 Last Taken Unknown] warfarin 5 mg tablet See Dose Instructions PO QDAY #60 tab 04/22/17 [Rx Confirmed 05/18/17 Last Taken Unknown] prednisone 5 mg tablet 5 mg PO QDAY #60 tab 05/11/17 [Rx Confirmed 05/18/17 Last Taken Unknown] traMADol [Ultram] 50 mg PO Q6HP PRN #10 tab 05/14/17 [Rx Confirmed 05/22/17 Last Taken Unknown] Gabapentin [Neurontin] 300 mg PO QAM 05/19/17 [History Confirmed 05/19/17 Last Taken Unknown] Medical - DS: Hosp Hospital course: DISCHARGE DIAGNOSIS * Acute on chronic hypoxic respiratory failure- clinically resolved. Currently on nasal cannula oxygen * Health care associated pneumonia- completed 7 days vancomycin and Zosyn. Cultures negative so far. * Atrial fibrillation-rate controlled.on Coumadin for CVA prophylaxis. INR therapeutic * Severe Sepsis-clinically resolved. * Congestive Heart failure-well compensated * COPD -On supplemental oxygen/steroid/bronchodilators * Eosinophic Pneumonia * h/o CVA/PVD -on Coumadin * Neuropathy on gabapentin * Hypertension on lisinopril * Myelodysplastic Syndrome-no acute change * Depression/anxiety on lorazepam/fluoxetine BRIEF HOSPITAL COURSE Mr. Austin is a 86 year old Male with h/o eosinophilic pneumonia, follows with Dr wilder ,presents to the ER with complaints of not feeling well x 1 week. According the family the patient was not feeling well for nearly a week, he has been sick and tired, He fell down on tuesday, and was brought to the ER for evaluation, at that time he was confused, but it seems his workup was negative, including head ct and pelvis ct and chest x ray was negative, He was discharged home with pcp follow up After going home he was stable for a day or so and his condition continued to worsen again, he had chills, severe shortness of breath on exertion, inabiilty to walk short distances ( could walk 6 blocks with walker as per him before), fatied, subjective sensation of fever and chills with rigors. He has been having dry heaving and vomiting over the last few days, he has cough with yellowish sputum production. The patient was unable to get up out of the bed this AM and was very short of breath this morning and was therefore brought to the ER for further evaluation. in the ER the patient was febrile, temperature 102.3, tachycardic with a heart rate of 97, tachypneic with respirations between 22 and 28,. The blood pressure was stable, that was documented blood pressures 95/67. Chest x-ray is read as right lung pneumonia which is worsening, EKG is atrial fibrillation with right bundle-branch block, poor old age. ABG drawn shows pH of 7.43-PCO2 45. PO2 51-patient is on oxygen supplementation. Approximately 5 L. The patient's has leukocytosis with WBC count of 15, anemia with a hemoglobin of 10, platelet is 483, patient has normal chemistries, pro- calcitonin is elevated at 0.36, lactic acid is elevated at 3.1. The patient admits to be having some headaches intermittent, some dizziness, no changes in vision hearing, no difficulty in swallow he has shortness of breath on exertion, cough, chest pain on the left side where he fell down, has nausea and vomiting, no abdominal pain no constipation or diarrhea, no urinary complaints, denies any skin rashes or acute joint pains. He has hypersensitivity of his toes in the lower extremity, Raynaud's-like phenomenon. I reviewed the CODE STATUS with the patient and the family and the patient wishes to be full code may 19 Patient seen exained, this AM was sitting in the chair, off oxygen, and was donig well he has shortness of breath with minimal exertion, but otherwise felt better. He had no acute overnight events, microbiology is negative. This PM his condition worsened, he became suddenly short of breath, in resp distress, starla exp wheezing, abg showed acute hypoxic resp failure, lactic acid level was 6.6 pt given duonebs, placed on bipap, iv lasix and iv morhpine given patient still bit anxious, iv ativan 0.5mg added pt x ray shows worsneing pna. may 20 pt seen examined, no acute overnight events, his resp status improved overnight and lactic acidosis resolved (on abg lactate) Pt off bipap this AM but still has significant wheezing, very poor air entry and starla crackles, He is very sob on minimal activity continue steroids, antibiotics and nebulizer treatment continue bipap support 05/21-patient seen in room along with family including . Sitting on chair. No overnight events. tolerated BiPAP fairly well. Currently off BiPAP eating breakfast. Foleys draining bloody urine. Tachycardic around 120s. On 1 L oxygen. No concerns discussed with nursing staff. eating breakfast himself. Feeling better. No fever chills nausea vomiting or worsening shortness of breath. 05/22- patient doing well. patient off BiPAP.1.5 L oxygen. Feeling a lot better. No overnight events including fever chills chest pain shortness of breath. at bedside. No agitation concerns. Tolerating diet. Tolerated physical therapy. iNR 3.8 05/23- patient doing well. No overnight events. No concerns per staff. On 2 L oxygen. Tolerating physical therapy. Ambulating with assistance. at bedside and expressed no concerns overnight. Transfer to SNF for continued rehabilitation and posthospitalization recovery. Discharge diagnosis: . - Time Spent with Patient Total time spent providing and/or coordinating discharge services: Greater than 30 minutes Medical - DS: Exam - Constitutional Vitals: Vital Signs Temp Pulse Pulse Resp BP Pulse Ox 05/23/17 08:33 100 H 19 98 05/23/17 08:00 100 H 18 05/23/17 07:52 97.6 F 18 170/76 94 05/23/17 03:47 97.5 F 63 14 163/82 99 05/23/17 03:00 68 14 05/22/17 23:00 97.4 F 70 18 156/72 98 05/22/17 22:51 77 11 L 05/22/17 20:00 97.5 F 85 18 155/73 96 05/22/17 16:15 97.5 F 67 16 143/76 97 05/22/17 14:06 14 05/22/17 12:04 97.5 F 86 22 156/71 99 05/22/17 11:08 71 18 Intake and Output 05/22/17 05/23/17 05/23/17 21:59 05:59 13:59 Intake Total 750 / 750 500 / 500 Output Total 300 / 300 100 / 100 Balance 450 / 450 400 / 400 Intake: IV 50 / 50 50 / 50 Zosyn 3.375 gm In Dextrose 5% 50 / 50 50 / 50 in Water 50 ml @ 100 mls/hr IV Q6H [facility] Rx#:[id number] Oral 700 / 700 450 / 450 Output: Void Amount 300 / 300 100 / 100 Other: Meal Dinner Percent of Meal Consumed 75% # Voids 1 1 Weight 175 lb Medical - DS: Data Labs on day of discharge: Labs from last 24 hours 05/23/17 05/23/17 05/23/17 04:00 04:00 04:00 WBC 6.8 RBC 2.47 L Hgb 8.8 L Hct 26.2 L MCV 106.1 H MCH 35.7 H MCHC 33.7 RDW 17.4 H Plt Count 407 MPV 8.7 Gran % 83.2 H Lymph % (Auto) 6.2 L [place] % (Auto) 8.1 Eos % (Auto) 2.4 Baso % (Auto) 0.1 Gran # 5.7 Lymph # (Auto) 0.4 L [place] # (Auto) 0.6 Eos # (Auto) 0.2 Baso # (Auto) 0 Differential Comment PT 36.7 H INR 3.6 H Sodium 139 Potassium 4.0 Chloride 102 Carbon Dioxide 26 Anion Gap 11.0 BUN 24 H Creatinine 1.0 GFR Calculation 68 Glucose 161 H Uric Acid 3.8 Calcium 7.9 L Phosphorus 2.1 L Magnesium 2.4 Total Bilirubin 0.8 Direct Bilirubin 0.3 GGT 109 H AST 18 ALT 32 Alkaline Phosphatase 43 Lactate Dehydrogenase 224 Total Protein 4.9 L Albumin 3.0 L Globulin 1.9 L Albumin/Globulin Ratio 1.6 Triglycerides 186 H 05/22/17 04:00 WBC RBC Hgb Hct MCV MCH MCHC RDW Plt Count MPV Gran % Lymph % (Auto) [place] % (Auto) Eos % (Auto) Baso % (Auto) Gran # Lymph # (Auto) [place] # (Auto) Eos # (Auto) Baso # (Auto) Differential Comment PT INR Sodium Potassium Chloride Carbon Dioxide Anion Gap BUN Creatinine GFR Calculation Glucose Uric Acid Calcium Phosphorus Magnesium Total Bilirubin Direct Bilirubin GGT AST ALT Alkaline Phosphatase Lactate Dehydrogenase Total Protein Albumin Globulin Albumin/Globulin Ratio Triglycerides Preliminary micro results at discharge 05/19/17 18:27 Blood Culture - Preliminary Blood 05/19/17 18:37 Blood Culture - Preliminary Blood Medical - DS: A/P - Patient/Caregiver Discharge Instructions Activity: as per physical therapy, increase activity as tolerated Diet: Regular Diet Additional Instructions: Follow-up PCP in 5 days Coumadin dosing based on INR per PCP I recommend SNF physician to check INR, CBC BMP UA as a posthospital follow-up and Chest x-ray in 1 week. oxygen @ 2 L Please schedule pulmonary function test as outpatient in 3 weeks Continue aggressive bowel regimen to prevent constipation Continue fall precautions Continue aggressive PT OT evaluation and treatment at SNF. ST eval and treatment if indicated All meals on chair sitting upright at 90 degrees to prevent aspiration Return to ER if worsening fever chills shortness of breath, diarrhea, bleeding Refrain from smoking and alcohol Continue diet and activity as advised Discussed importance of medication adherence Please review medication list with patient prior to discharge Please schedule follow-up with PCP/Providers prior to discharge and provide printouts Portions of this chart may have been created with [employer] voice recognition software. Occasional wrong-word or ?sound-like? substitutions may have occurred due to the inherent limitations of voice recognition software. Please read the chart carefully and recognize, using context, where the substitutions have occurred. CC- PCP - Follow up Plan Follow up with: Gaviota Mercedes, MAY, [employer] [Primary Care Provider] - [facility] Prognosis: Serious Rehab Potential: Fair I certify that the patient requires SNF services: Yes Overall status at discharge: patient is progressing back to baseline Medical - DS: Qual - VTE Deep Vein Thrombosis/Pulmonary Embolism Present on Admission: No
[2017-05-23] MEDS: FLUTICASONE PROPIONATE SPRAY.NAS NS SCH (14:18)
== END 2017-05-23 12:32 | DRG 871 ==
LOC: ED 08:07 → ICU 12:39 → MEDSUR 05-22 11:45
PROVIDERS: ADMIT Internal Medicine; ATTEND Internal Medicine

== ENCOUNTER 2019-09-27 19:54 | Observation (INO) ==
[2019-09-27 21:21] LABS: Basophils # (Auto) 0.14 K/mcL (0.00-0.30); Basophils % (Auto) 1.5 % (0.0-2.0); Eosinophils # (Auto) 0.35 K/mcL (0.00-0.70); Eosinophils % (Auto) 3.7 % (0.0-7.0); Granulocytes % (Auto) 73.3 % (38.0-78.0); Hematocrit 24.7 % (40.1-51.0); Hemoglobin 8.1 g/dL (13.7-17.5); Lymphocytes # (Auto) 0.88 K/mcL (1.50-4.80); Lymphocytes % (Auto) 9.2 % (15.5-49.0); Mean Cell Volume 96.1 fL (80.0-100.0); Mean Corpuscular HGB Conc 32.8 g/dL (31.0-36.0); Mean Platelet Volume 10.4 fL (7.4-10.4); Monocytes # (Auto) 1.17 K/mcL (0.10-0.90); Monocytes % (Auto) 12.3 % (1.0-12.0); Platelet Count 656 K/mcL (140-440); RBC 2.57 M/mcL (4.63-6.08); Red Cell Distribution Width 24.8 % (11.5-14.5); WBC 9.5 K/mcL (4.50-11.00)
--- NOTE | 2019-09-27 21:24 | Emergency Department Note ---
Dizziness HPI General Chief Complaint: Dizziness Stated Complaint: Vertigo Time Seen by Provider: 09/27/19 20:02 Source: patient and family Mode of arrival: EMS Limitations: no limitations History of Present Illness HPI Narrative: Patient reports couple episodes of dizziness today. Reports a history of dizziness and takes meclizine. He reports that today's dizziness had an associated blurry vision and nausea. He did have one episode when he could not see during this dizziness. The symptoms are not common with his former chronic episodes of dizziness. He had 2 episodes of vomiting. Foods with patient states that at one time the patient appeared to be mumbling to himself, recall this episode. He denies abdominal pain or changes in his chronic shortness of breath. He denies chest pain. Does report that lately he has felt weaker than usual and less tolerant of activity. States that this was most pr ofound today. Related Data Home Medications Medication Instructions Recorded Confirmed aspirin 81 mg chewable tablet 81 mg PO QDAY tab 09/02/14 09/28/19 prednisone 5 mg tablet 2.5 mg PO Q OTHER DAY tab 03/26/19 09/27/19 acetaminophen 325 mg tablet 650 mg PO BID PRN tab 05/04/19 09/28/19 Previous Rx's Medication Instructions Recorded meclizine 25 mg PO TIDP PRN #30 tab 01/24/18 Hernia jock #1 ea 11/22/18 hernia binder #1 ea 11/22/18 fluoxetine 20 mg capsule 20 mg PO QDAY #90 cap 03/05/19 gabapentin 300 mg capsule 600 mg PO QHS #180 cap 05/04/19 budesonide 0.5 mg/2 mL suspension 0.5 mg INHALATION Q12H #60 ml 05/31/19 for nebulization ipratropium 0.5 mg-albuterol 3 mg 3 ml INHALATION QID #90 ml 05/31/19 (2.5 mg base)/3 mL nebulization soln lorazepam 1 mg tablet See Rx Instructions .ROUTE 06/07/19 .COMPLEX #30 tab epoetin kalee-epbx 40,000 unit/mL 40,000 unit SUB-Q 3XW #1 ml 06/21/19 injection solution alendronate 70 mg tablet 70 mg PO QWEEK #12 tab 07/24/19 warfarin 5 mg tablet See Rx Instructions PO .COMPLEX 07/25/19 #30 tab Allergies Allergy/AdvReac Type Severity Reaction Status Date / Time adhesive tape Allergy Mild Rash Verified 09/28/19 09:29 latex Allergy Mild Rash Verified 09/27/19 19:57 Review of Systems ROS ROS Narrative: Narrative: Constitutional: Reports as per HPI and weakness; Denies fever and chills Eyes: Reports vision change; Denies eye pain ENT ED: Denies ear pain and congestion Cardiovascular: Reports dyspnea on exertion; Denies chest pain, palpitations, edema and syncope Respiratory: Denies shortness of breath, cough and phlegm Gastrointestinal: Reports nausea and vomiting; Denies abdominal pain, hematochezia and hematemesis Genitourinary: Denies dysuria and hematuria Musculoskeletal: Reports back pain (Chronic); Denies muscle cramps Integumentary: Denies rash, lesions and change in color Neurological: Reports as per HPI, weakness, confusion (Patient's reports that the patient had an episode where he was sitting and appeared confused.) and dizziness; Denies headache and numbness Endocrine: Reports fatigue Hematological/Lymphatic: Denies lymphadenopathy PFSH Narrative Patient History Narrative: Narrative: Medical/Surgical/Family History All Active Problems (Updated 09/29/19 @ 10:54 by KAILEY Esposito) Anemia (Acute) Dizziness (Acute) Weakness (Acute) Elevated WBC count (Acute) Oxygen dependent (Acute) Hyponatremia (Acute) Hypochloremia (Acute) Benign positional vertigo (Acute) Right rib fracture (Acute) Fall (Acute) Compression fracture (Acute) Laceration of lip (Acute) History of vertebroplasty (Chronic) Left hip pain (Chronic) 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) PAD (peripheral artery disease) (Chronic) Tremor of both hands (Chronic) Poor circulation of extremity (Chronic) Eosinophilic pneumonia (Chronic) Pulmonary nodule (Chronic) Seasonal affective disorder (Chronic) Myelodysplastic syndrome (Chronic) Tinnitus (Chronic) senior care current use of anticoagulant therapy (Chronic) Osteoporosis (Chronic) Chronic sinusitis (Chronic 03/19/14) PVD (peripheral vascular disease) (Chronic 09/08/12) Essential hypertension (Chronic) 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) Depression (Chronic) CHF (congestive heart failure) (Chronic 03/19/14) COPD (chronic obstructive pulmonary disease) (Chronic) Carotid bruit (Chronic 09/08/12) Atrial fibrillation (Chronic 03/19/14) Macrocytic anemia (Chronic) Allergic rhinitis (Chronic) Medical History Acute exacerbation of chronic obstructive airways disease (Resolved) Acute vestibular neuronitis (Resolved) Allergic rhinitis (Chronic) 2011;stuffy and runny nose, especially at night Atrial fibrillation (Chronic 03/19/14) coumadin Basal pneumonia (Resolved) Benign paroxysmal positional vertigo (Resolved) Carotid bruit (Chronic 09/08/12) CHF (congestive heart failure) (Chronic 03/19/14) Dr. Alvarado Chronic sinusitis (Chronic 03/19/14) Dr. 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 Alvarado Muscle spasm (Resolved) Myelodysplastic syndrome (Chronic) Osteoporosis (Chronic) PAD (peripheral artery disease) (Chronic) Pleural effusion (Resolved 03/19/14) Dr. Alvarado Pneumonia (Resolved) Pneumonia (Resolved) Pneumonitis (Resolved 03/19/14) Dr. Alvarado Poor circulation of extremity (Chronic) Pulmonary nodule (Chronic) multiple scattered, up to 2.5cm in diameter PVD (peripheral vascular disease) (Chronic 09/08/12) Rheumatic fever (Resolved) as a child; rejected by the draft due to possible murmur Rib sprain (Resolved) Right upper quadrant abdominal pain (Resolved) Seasonal affective disorder (Chronic) winter months Tinnitus (Chronic) since CVA Tobacco abuse (Resolved 09/08/12) Tremor of both hands (Chronic) suspect this is related to his COPD medications and steroids Upper respiratory infection (Resolved) Surgical History Chyloperitoneum determined by paracentesis (Resolved) Dr Alvarado 02/26/2014 H/O angiography (Resolved) Dr Collazo 07/02/2014 Hernia (Resolved) [address] Clemons Hip fracture requiring operative repair (Resolved) bilateral History of bone marrow biopsy (Resolved) 10/04/2012 Dr. Durham History of hip replacement (Resolved) Right hip History of intravascular stent placement (Resolved) 07/02/2014 Dr. Collazo History of tonsillectomy (Resolved) 40 years of age. Hospitalized for one week with surgery History of vertebroplasty (Chronic) Family History Brother , at age 60 from asthma Asthma Father Asthma Osteoarthritis Sister Asthma Essential hypertension Acute myocardial infarction following CABG surgery Mother Essential hypertension Osteoarthritis Brother #2 , committed suicide Depression Social History Smoking Status: Former smoker Alcohol Intake Frequency: does not drink Substance Use: does not use Exam Narrative Narrative: Narrative: General Limitations: no limitations General appearance: alert and lethargic Head Head: atraumatic Eye Eye: Present normal appearance and PERRL; Absent scleral icterus, nystagmus and periorbital swelling ENT ENT: Present mucous membranes moist and TM's normal bilaterally; Absent nasal congestion Neck Neck: Present normal inspection and full ROM Chest Chest: Present symmetric chest wall rise Respiratory Respiratory: Present normal lung sounds bilaterally; Absent respiratory distress Cardiovascular Cardiovascular: Present irregular rhythm Adbominal Abdominal: Present soft and normal bowel sounds; Absent guarding Extremities Extremities: Present full ROM and normal capillary refill Back Back: Present other (Chronic back pain. No new changes.); Absent CVA tenderness (R) and CVA tenderness (L) Neurological Neurological: Present alert, oriented X3 and CN II-XII intact Psychiatric Psychiatric: Present normal affect and polite Skin Skin: Present warm and intact Course Course Course Narrative: Ordered head ct due to report of unusual dizziness from his usual and associated symptoms. Increased anemia since his last CBC and epoetin injection. Level may attribute to these symptoms of increased weakness and dizziness. Dr Jacobsen will assume care of this patient due to my shift end at 2200. Vital Signs Vital signs: Vital Signs Temperature 97.6 F 09/27/19 19:54 Pulse Rate 67 09/27/19 19:54 Respiratory Rate 16 09/27/19 19:54 Blood Pressure 165/66 09/27/19 19:54 Pulse Oximetry (%) 99 09/27/19 19:54 Temperature 98.6 F 09/28/19 12:21 Pulse Rate 80 09/28/19 12:21 Respiratory Rate 16 09/28/19 12:21 Blood Pressure 156/69 09/28/19 12:21 Pulse Oximetry (%) 94 09/28/19 12:21 [facility] MDM Narrative Medical decision making narrative: Narrative: Lab Data Result diagrams: 09/28/19 08:30 09/27/19 20:46 Labs: Lab Results 09/27/19 09/27/19 09/27/19 Range/Units 20:36 20:46 20:46 WBC (4.50-11.00) K/mcL RBC (4.63-6.08) M/mcL Hgb (13.7-17.5) g/dL Hct (40.1-51.0) % MCV (80.0-100.0) fL MCH (26.0-34.0) pg MCHC (31.0-36.0) g/dL RDW (11.5-14.5) % Plt Count (140-440) K/mcL MPV (7.4-10.4) fL Gran % (38.0-78.0) % Lymph % (Auto) (15.5-49.0) % [place] % (Auto) (1.0-12.0) % Eos % (Auto) (0.0-7.0) % Baso % (Auto) (0.0-2.0) % Gran # (1.80-8.00) K/mcL Lymph # (Auto) (1.50-4.80) K/mcL [place] # (Auto) (0.10-0.90) K/mcL Eos # (Auto) (0.00-0.70) K/mcL Baso # (Auto) (0.00-0.30) K/mcL PT 23.4 H (11.9-14.5) sec INR 2.0 H (0.9-1.1) APTT 38 H (20-37) sec Sodium 138 (133-145) mmol/L Potassium 4.3 (3.3-5.1) mmol/L Chloride 102 (96-108) mmol/L Carbon Dioxide 24 (22-30) mmol/L Anion Gap 12.0 (8-16) BUN 17 (8-23) mg/dl Creatinine 0.9 (0.7-1.2) mg/dl GFR Calculation 75 Glucose 118 H (70-105) mg/dL Calcium 8.5 L (8.6-10.4) mg/dl Total Bilirubin 1.2 H (0.0-1.0) mg/dL AST 22 (0-37) U/l ALT 22 (0-40) U/l Alkaline Phosphatase 118 H (39-117) U/L Troponin T < 0.01 (0-0.03) ng/ml Total Protein 5.9 (5.9-8.4) gm/dL Albumin 3.6 (3.2-5.2) gm/dL Globulin 2.3 (2.2-3.7) gm/dL Albumin/Globulin Ratio 1.6 (1.0-2.3) Urine Color Urine Appearance Urine pH (5.0-9.0) Ur Specific Wirt (1.000-1.035) Urine Protein (NEG) mg/dL Urine Glucose (UA) (NEG) mg/dL Urine Ketones (NEG) mg/dL Urine Occult Blood (<0.03) mg/dL Urine Nitrate (NEG) Urine Bilirubin (NEG) mg/dL Urine Urobilinogen (NEG) mg/dL Ur Leukocyte Esterase (NEG) /uL Ur Culture Indicated? 09/27/19 09/27/19 Range/Units 20:47 22:35 WBC 9.5 (4.50-11.00) K/mcL RBC 2.57 L (4.63-6.08) M/mcL Hgb 8.1 L (13.7-17.5) g/dL Hct 24.7 L (40.1-51.0) % MCV 96.1 (80.0-100.0) fL MCH 31.5 (26.0-34.0) pg MCHC 32.8 (31.0-36.0) g/dL RDW 24.8 H (11.5-14.5) % Plt Count 656 H (140-440) K/mcL MPV 10.4 (7.4-10.4) fL Gran % 73.3 (38.0-78.0) % Lymph % (Auto) 9.2 L (15.5-49.0) % [place] % (Auto) 12.3 H (1.0-12.0) % Eos % (Auto) 3.7 (0.0-7.0) % Baso % (Auto) 1.5 (0.0-2.0) % Gran # 6.98 (1.80-8.00) K/mcL Lymph # (Auto) 0.88 L (1.50-4.80) K/mcL [place] # (Auto) 1.17 H (0.10-0.90) K/mcL Eos # (Auto) 0.35 (0.00-0.70) K/mcL Baso # (Auto) 0.14 (0.00-0.30) K/mcL PT (11.9-14.5) sec INR (0.9-1.1) APTT (20-37) sec Sodium (133-145) mmol/L Potassium (3.3-5.1) mmol/L Chloride (96-108) mmol/L Carbon Dioxide (22-30) mmol/L Anion Gap (8-16) BUN (8-23) mg/dl Creatinine (0.7-1.2) mg/dl GFR Calculation Glucose (70-105) mg/dL Calcium (8.6-10.4) mg/dl Total Bilirubin (0.0-1.0) mg/dL AST (0-37) U/l ALT (0-40) U/l Alkaline Phosphatase (39-117) U/L Troponin T (0-0.03) ng/ml Total Protein (5.9-8.4) gm/dL Albumin (3.2-5.2) gm/dL Globulin (2.2-3.7) gm/dL Albumin/Globulin Ratio (1.0-2.3) Urine Color Yellow Urine Appearance Clear Urine pH 5.0 (5.0-9.0) Ur Specific Wirt 1.020 (1.000-1.035) Urine Protein Neg (NEG) mg/dL Urine Glucose (UA) Negative (NEG) mg/dL Urine Ketones Neg (NEG) mg/dL Urine Occult Blood Neg (<0.03) mg/dL Urine Nitrate Neg (NEG) Urine Bilirubin Neg (NEG) mg/dL Urine Urobilinogen 2.0 A (NEG) mg/dL Ur Leukocyte Esterase Neg (NEG) /uL Ur Culture Indicated? 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
[2019-09-27 21:44] LABS: ALT/SGPT 22 U/l (0-40); AST/SGOT 22 U/l (0-37); Albumin 3.6 gm/dL (3.2-5.2); Albumin/Globulin Ratio 1.6 (1.0-2.3); Alkaline Phosphatase 118 U/L (39-117); Bilirubin,Total 1.2 mg/dL (0.0-1.0); Blood Urea Nitrogen 17 mg/dl (8-23); Calcium 8.5 mg/dl (8.6-10.4); Carbon Dioxide 24 mmol/L (22-30); Chloride 102 mmol/L (96-108); Globulin 2.3 gm/dL (2.2-3.7); Glomerular Filtration Rate 75; Glucose 118 mg/dL (70-105)
[2019-09-27 22:16] LABS: Prothrombin Time 23.4 sec (11.9-14.5)
[2019-09-27] MEDS ORDERED: ONDANSETRON 4 MG/2 ML VIAL IV PRN (22:50)
[2019-09-27] MEDS ORDERED: 0.9 % SODIUM CHLORIDE 250 ML IV SCH (23:00)
[2019-09-28 00:12] LABS: Appearance,Urine CLEAR; Bilirubin,Urine NEG (NEG); Color,Urine YELLOW; Culture Indicated,Urine NO; Glucose,Urine (UA) NEGATIVE (NEG); Ketones,Urine NEG (NEG); Leukocyte Esterase,Urine NEG /uL (NEG); Nitrate,Urine NEG (NEG); Protein,Urine NEG (NEG); Urine Blood NEG mg/dL (<0.03)
[2019-09-28] MEDS ORDERED: 0.9 % SODIUM CHLORIDE 10 ML SYRINGE IV SCH (06:00)
--- NOTE | 2019-09-28 06:01 | Cat Scan Report ---
INDICATION: vision and mentation changes. COMPARISON: Previous examination dated 02/15/2018 TECHNIQUE: Axial noncontrast-enhanced images through the brain. Sagittally and coronally reformatted images. FINDINGS: The examination was initially interpreted by [facility] Cerebral hemispheres:No acute intra-axial hemorrhage. Chronic left posterior frontal infarction, unchanged. No acute intra-axial attenuation abnormality or localized mass effect. No midline shift. There is age-appropriate cerebral atrophy. Brainstem and cerebellum:No intra-axial abnormality Extra-axial:No acute hemorrhage. No subdural or epidural hematoma. No subarachnoid hemorrhage. Basilar cisterns are normal Calvarial:No calvarial fracture. No lytic lesion Temporal bones are negative. No destructive lesions Soft tissue:Orbits and visualized facial soft tissues are grossly normal. Mild mucosal thickening within the ethmoid sinuses IMPRESSION: 1. Chronic posterior left frontal infarction 2. No acute abnormality The exam was performed using radiation dose optimization techniques including, but not limited to, automated exposure control, adjustment of the mA and/or kV according to patient size and use of iterative reconstruction technique. Interpreted and Authenticated by: Hayden Greenberg 09/28/19
--- NOTE | 2019-09-28 06:05 | XRay Report ---
INDICATION: weakness TECHNIQUE: AP portable semiupright chest x-ray COMPARISON: Previous chest x-rays dated 09/21/2018, 02/24/2018 FINDINGS: Lungs:Appearances consistent with COPD. No new focal pulmonary parenchymal infiltrate or mass. No interval change Heart, vascular:No significant cardiomegaly. Pulmonary vascularity is normal. No pulmonary edema or pulmonary congestion Mediastinum, kirsten:No mediastinal widening. No hilar mass Pleura:No pleural fluid. No pleural-based mass or calcification Skeletal:Negative. IMPRESSION: 1. Changes consistent with COPD 2. No acute abnormality. No interval change Interpreted and Authenticated by: Hayden Greenberg 09/28/19
--- NOTE | 2019-09-28 08:08 | Internal Med History&Physical ---
HPI History of Present Illness Patient information: Note initiated : 09/27/19 at 23:08 pm Service Date, if different from initiated Date: [] Patient: Bneny Austin a 89 y/o M admitted on 09/27/19 for Vertigo. Chief Complaint: [] History of present illness: Mr. Austin is a 89 year old M with a history of eosinophilic pneumonia/COPD/CHF/A. fib on anticoagulation and underlying myelodysplastic syndrome who presents to the ER with episodes of dizziness/weakness and blurry vision. Initial work-up in the ER was consistent with symptomatic anemia. Patient was ordered transfusion and hospital service was consulted for admission. There is no evidence of overt bleeding/hematemesis/hematochezia. Patient underwent back surgery in May. Currently on lidocaine patches for right-sided rib fractures following a fall at home. Patient denies chest pain/shortness of breath. He occasionally takes meclizine for his dizziness symptoms. Symptoms associated with nausea/emesis x2 following meclizine yesterday. But denies unilateral weakness/tinnitus or hearing loss At the time of evaluation patient is alert and oriented. He denies active distress. His symptoms have improved slightly. Denies fever, diarrhea, dysuria Review of systems 10 point review system was performed and is negative except for ones discussed above [facility] Medical History Acute exacerbation of chronic obstructive airways disease (Resolved) Acute vestibular neuronitis (Resolved) Allergic rhinitis (Chronic) 2011;stuffy and runny nose, especially at night Atrial fibrillation (Chronic 03/19/14) coumadin Basal pneumonia (Resolved) Benign paroxysmal positional vertigo (Resolved) Carotid bruit (Chronic 09/08/12) CHF (congestive heart failure) (Chronic 03/19/14) Dr. Alvarado Chronic sinusitis (Chronic 03/19/14) Dr. 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 Alvarado Muscle spasm (Resolved) Myelodysplastic syndrome (Chronic) Osteoporosis (Chronic) PAD (peripheral artery disease) (Chronic) Pleural effusion (Resolved 03/19/14) Dr. Alvarado Pneumonia (Resolved) Pneumonia (Resolved) Pneumonitis (Resolved 03/19/14) Dr. Alvarado Poor circulation of extremity (Chronic) Pulmonary nodule (Chronic) multiple scattered, up to 2.5cm in diameter PVD (peripheral vascular disease) (Chronic 09/08/12) Rheumatic fever (Resolved) as a child; rejected by the draft due to possible murmur Rib sprain (Resolved) Right upper quadrant abdominal pain (Resolved) Seasonal affective disorder (Chronic) winter months Tinnitus (Chronic) since CVA Tobacco abuse (Resolved 09/08/12) Tremor of both hands (Chronic) suspect this is related to his COPD medications and steroids Upper respiratory infection (Resolved) Surgical History Chyloperitoneum determined by paracentesis (Resolved) Dr Alvarado 02/26/2014 H/O angiography (Resolved) Dr Collazo 07/02/2014 Hernia (Resolved) [address] Clemons Hip fracture requiring operative repair (Resolved) bilateral History of bone marrow biopsy (Resolved) 10/04/2012 Dr. Durham History of hip replacement (Resolved) Right hip History of intravascular stent placement (Resolved) 07/02/2014 Dr. Collazo History of tonsillectomy (Resolved) 40 years of age. Hospitalized for one week with surgery History of vertebroplasty (Chronic) Family History Brother , at age 60 from asthma Asthma Father Asthma Osteoarthritis Sister Asthma Essential hypertension Acute myocardial infarction following CABG surgery Mother Essential hypertension Osteoarthritis Brother #2 , committed suicide Depression Social History household members: spouse marital status: occupational status: retired other: Caffeine- 3-6 cups of coffee every day well-balanced diet: about half the time physical activity: walking frequency: 1-2 times per week duration: 15-30 minutes/day smoking status: Former smoker quit date: 03/14/13 pack-years: 70 alcohol intake frequency: does not drink substance use type: does not use sophie/temple: None seatbelt use: always working smoke detector in home: Yes MEDS/ALLERGIES Home Medications and Allergies Home Medications Medication Instructions Recorded Confirmed Type aspirin 81 mg chewable tablet 81 mg PO QDAY tab 09/02/14 09/28/19 History meclizine 25 mg PO TIDP PRN #30 tab 01/24/18 09/28/19 Rx Hernia jock #1 ea 11/22/18 06/25/19 Rx hernia binder #1 ea 11/22/18 09/26/19 Rx fluoxetine 20 mg capsule 20 mg PO QDAY #90 cap 03/05/19 09/28/19 Rx prednisone 5 mg tablet 2.5 mg PO Q OTHER DAY tab 03/26/19 09/27/19 History acetaminophen 325 mg tablet 650 mg PO BID PRN tab 05/04/19 09/28/19 History gabapentin 300 mg capsule 600 mg PO QHS #180 cap 05/04/19 09/28/19 Rx budesonide 0.5 mg/2 mL suspension 0.5 mg INHALATION Q12H #60 ml 05/31/19 09/28/19 Rx for nebulization ipratropium 0.5 mg-albuterol 3 mg 3 ml INHALATION QID #90 ml 05/31/19 09/28/19 Rx (2.5 mg base)/3 mL nebulization soln lorazepam 1 mg tablet See Rx Instructions .ROUTE 06/07/19 09/28/19 Rx .COMPLEX #30 tab epoetin kalee-epbx 40,000 unit/mL 40,000 unit SUB-Q 3XW #1 ml 06/21/19 09/28/19 Rx injection solution alendronate 70 mg tablet 70 mg PO QWEEK #12 tab 05/12/20 07/17/20 Rx warfarin 5 mg tablet See Rx Instructions PO .COMPLEX 07/25/19 09/28/19 Rx #30 tab Allergies Allergy/AdvReac Type Severity Reaction Status Date / Time adhesive tape Allergy Intermediate rash Verified 09/27/19 19:57 latex Allergy Mild Rash Verified 09/27/19 19:57 EXAM Constitutional Vitals: Temp Pulse Resp BP Pulse Ox 97.9 F 76 16 166/74 95 09/28/19 07:53 09/28/19 07:53 09/28/19 07:53 09/28/19 07:53 09/28/19 07:53 Head normocephalic Oral cavity moist No ear nose discharge Eye movement symmetrical Neck supple no lymphadenopathy Irregular rhythm Nonlabored breathing Nondistended nontender abdomen Lower extremity no cyanosis clubbing or joint swelling Skin extensive bruising Psych anxious but alert cooperative Neuro normal higher function DATA Data Completed and Pending Labs on day of discharge: Labs from last 24 hours 09/27/19 09/27/19 09/27/19 22:35 20:47 20:46 WBC 9.5 RBC 2.57 L Hgb 8.1 L Hct 24.7 L MCV 96.1 MCH 31.5 MCHC 32.8 RDW 24.8 H Plt Count 656 H MPV 10.4 Gran % 73.3 Lymph % (Auto) 9.2 L [place] % (Auto) 12.3 H Eos % (Auto) 3.7 Baso % (Auto) 1.5 Gran # 6.98 Lymph # (Auto) 0.88 L [place] # (Auto) 1.17 H Eos # (Auto) 0.35 Baso # (Auto) 0.14 PT INR APTT Sodium Potassium Chloride Carbon Dioxide Anion Gap BUN Creatinine GFR Calculation Glucose Calcium Total Bilirubin AST ALT Alkaline Phosphatase Troponin T < 0.01 Total Protein Albumin Globulin Albumin/Globulin Ratio Urine Color Yellow Urine Appearance Clear Urine pH 5.0 Ur Specific [place] 1.020 Urine Protein Neg Urine Glucose (UA) Negative Urine Ketones Neg Urine Occult Blood Neg Urine Nitrate Neg Urine Bilirubin Neg Urine Urobilinogen 2.0 A Ur Leukocyte Esterase Neg Ur Culture Indicated? No 09/27/19 09/27/19 20:46 20:36 WBC RBC Hgb Hct MCV MCH MCHC RDW Plt Count MPV Gran % Lymph % (Auto) [place] % (Auto) Eos % (Auto) Baso % (Auto) Gran # Lymph # (Auto) [place] # (Auto) Eos # (Auto) Baso # (Auto) PT 23.4 H INR 2.0 H APTT 38 H Sodium 138 Potassium 4.3 Chloride 102 Carbon Dioxide 24 Anion Gap 12.0 BUN 17 Creatinine 0.9 GFR Calculation 75 Glucose 118 H Calcium 8.5 L Total Bilirubin 1.2 H AST 22 ALT 22 Alkaline Phosphatase 118 H Troponin T Total Protein 5.9 Albumin 3.6 Globulin 2.3 Albumin/Globulin Ratio 1.6 Urine Color Urine Appearance Urine pH Ur Specific [place] Urine Protein Urine Glucose (UA) Urine Ketones Urine Occult Blood Urine Nitrate Urine Bilirubin Urine Urobilinogen Ur Leukocyte Esterase Ur Culture Indicated? A/P Narrative A/P Narrative: * Symptomatic anemia with dizziness 2 units PRBC transfusion. History of MDS * Dizziness-prior history of vertigo. Check echocardiogram * Atrial fibrillation-rate controlled.on Coumadin for CVA prophylaxis. * History of congestive Heart failure-well compensated * COPD -On supplemental oxygen/steroid/bronchodilators * Eosinophic Pneumonia * h/o CVA/PVD -on Coumadin/aspirin * Neuropathy on gabapentin * Myelodysplastic Syndrome-no acute change * Depression/anxiety on lorazepam/fluoxetine Plan * Observation admit * Coumadin dosing based on INR * Echocardiogram * 2 units PRBC transfusion * Pre-existing medical condition management home meds Time Spent With Patient Time: Total time spent is greater than 50% in coordination of care (as documented) at patient's floor/unit and/or counseling patient: QUALITY Stroke Symptom Onset Unknown: No VTE Deep Vein Thrombosis/Pulmonary Embolism Present on Admission: No
[2019-09-28] MEDS ORDERED: POTASSIUM CHLORIDE 20 MEQ/15 ML ML PO PRN (08:16)
[2019-09-28] MEDS ORDERED: MAGNESIUM SULFATE 2 GM/50 ML BAG IV PRN (08:16)
[2019-09-28] MEDS ORDERED: ACETAMINOPHEN 325 MG TABLET PO PRN (08:27)
[2019-09-28] MEDS ORDERED: EPOETIN ALFA EPBX SUB-Q SCH (08:30)
[2019-09-28] MEDS ORDERED: LORazepam 1 MG TABLET PO PRN (08:30)
[2019-09-28] MEDS ORDERED: MECLIZINE 25 MG TABLET PO PRN (08:30)
[2019-09-28] MEDS ORDERED: DOCUSATE SODIUM 100 MG CAPSULE PO SCH (09:00)
[2019-09-28] MEDS ORDERED: FLUoxetine HCL 20 MG CAPSULE PO SCH (09:00)
[2019-09-28] MEDS ORDERED: ALENDRONATE SODIUM 70 MG TABLET PO SCH (09:00)
[2019-09-28] MEDS ORDERED: ASPIRIN 81 MG TAB.CHEW PO SCH (09:00)
[2019-09-28] MEDS ORDERED: predniSONE 5 MG TABLET PO SCH (09:00)
[2019-09-28] MEDS ORDERED: IPRATROPIUM/ALBUTEROL 3 ML AMPUL.NEB NEB SCH (09:00)
[2019-09-28] MEDS ORDERED: BUDESONIDE 0.5 MG/2 ML AMPUL.NEB NEB SCH (09:00)
--- NOTE | 2019-09-28 09:11 | Discharge Summary ---
Discharge Provider Provider Patient information: Note initiated : 09/28/19 at 9:08 am Service Date, if different from initiated Date: [] Patient: Benny Austin 89 y/o M admitted on 09/27/19 for Vertigo. Chief Complaint: [] Date of admission: 09/27/19 23:51 Discharge date: 09/28/19 Primary care physician: Mike Valdez Consults: 09/27/19 21:50 Consult to Physician [CONS] Routine Comment: Consulting Provider: Thomas Griffin Reason For Exam: Physician to Consult Discharge Meds Discharge Medications Home Medications aspirin 81 mg chewable tablet 81 mg PO QDAY tab 09/02/14 [History Confirmed 09/28/19 Last Taken 09/26/19 08:00] meclizine 25 mg PO TIDP PRN #30 tab 01/24/18 [Rx Confirmed 09/28/19 Last Taken 09/26/19 22:00] Hernia jock #1 ea 11/22/18 [Rx Confirmed 06/25/19 Last Taken Unknown] hernia binder #1 ea 11/22/18 [Rx Confirmed 09/26/19 Last Taken Unknown] fluoxetine 20 mg capsule 20 mg PO QDAY #90 cap 03/05/19 [Rx Confirmed 09/28/19 Last Taken 09/26/19 08:00] prednisone 5 mg tablet 2.5 mg PO Q OTHER DAY tab 03/26/19 [History Confirmed 09/27/19 Last Taken Unknown] acetaminophen 325 mg tablet 650 mg PO BID PRN tab 05/04/19 [History Confirmed 09/28/19 Last Taken 09/26/19 22:00] gabapentin 300 mg capsule 600 mg PO QHS #180 cap 05/04/19 [Rx Confirmed 09/28/19 Last Taken 09/26/19 22:00] budesonide 0.5 mg/2 mL suspension for nebulization 0.5 mg INHALATION Q12H #60 ml 05/31/19 [Rx Confirmed 09/28/19 Last Taken 09/26/19 20:00] ipratropium 0.5 mg-albuterol 3 mg (2.5 mg base)/3 mL nebulization soln 3 ml INHALATION QID #90 ml 05/31/19 [Rx Confirmed 09/28/19 Last Taken 09/26/19 22:00] lorazepam 1 mg tablet See Rx Instructions .ROUTE .COMPLEX #30 tab 06/07/19 [Rx Confirmed 09/28/19 Last Taken 09/26/19 22:00] epoetin kalee-epbx 40,000 unit/mL injection solution 40,000 unit SUB-Q 3XW #1 ml 06/21/19 [Rx Confirmed 09/28/19 Last Taken 09/20/19 14:30] alendronate 70 mg tablet 70 mg PO QWEEK #12 tab 07/24/19 [Rx Confirmed 09/28/19 Last Taken 09/23/19 07:00] warfarin 5 mg tablet See Rx Instructions PO .COMPLEX #30 tab 07/25/19 [Rx Confirmed 09/28/19 Last Taken 09/26/19 08:00] COURSE Hospital Course Hospital Course: Discharge diagnosis * Symptomatic anemia with dizziness. Clinically resolved status post 2 units PRBC transfusion. History of MDS * Dizziness likely secondary to symptomatic anemia. Prior history of vertigo and has been taking meclizine at home. Echocardiogram completed however results awaited. * Atrial fibrillation-rate controlled. discharging on Coumadin for CVA prophylaxis. * History of congestive Heart failure-well compensated * COPD -On supplemental oxygen/steroid/bronchodilators * Eosinophic Pneumonia * h/o CVA/PVD -on Coumadin/aspirin * Neuropathy on gabapentin * Myelodysplastic Syndrome-recommend follow-up with recreation director as outpatient * Depression/anxiety on lorazepam/fluoxetine Brief hospital course History of present illness: Mr. Austin is a 89 year old M with a history of eosinophilic pneumonia/COPD/CHF/A. fib on anticoagulation and underlying myelodysplastic syndrome who presents to the ER with episodes of dizziness/weakness and blurry vision. Initial work-up in the ER was consistent with symptomatic anemia. Patient was ordered transfusion and hospital service was consulted for admission. There is no evidence of overt bleeding/hemat emesis/hematochezia. Patient underwent back surgery in May. Currently on lidocaine patches for right-sided rib fractures following a fall at home. Patient denies chest pain/shortness of breath. He occasionally takes meclizine for his dizziness symptoms. Symptoms associated with nausea/emesis x2 following meclizine yesterday. But denies unilateral weakness/tinnitus or hearing loss At the time of evaluation patient is alert and oriented. He denies active distress. His symptoms have improved slightly. Denies fever, diarrhea, dysuria 09/27-patient currently asymptomatic status post units transfusion. Feels at baseline. Requesting discharge. No further episode of dizziness lightheadedness. Echocardiogram completed. Patient will follow with primary care physician. Discharge diagnosis: . Time Spent with Patient Time attestation: Total time spent providing and/or coordinating discharge services: EXAM Constitutional Vitals: Temp Pulse Resp BP Pulse Ox 97.9 F 76 16 166/74 95 09/28/19 07:53 09/28/19 07:53 09/28/19 07:53 09/28/19 07:53 09/28/19 07:53 Discharge Data Data Completed and Pending Labs on day of discharge: Labs from last 24 hours 09/28/19 09/28/19 09/27/19 09:00 08:30 22:35 WBC Pending RBC Pending Hgb Pending Hct Pending MCV Pending MCH Pending MCHC Pending RDW Pending Plt Count Pending MPV Pending Gran % Lymph % (Auto) [place] % (Auto) Eos % (Auto) Baso % (Auto) Gran # Lymph # (Auto) [place] # (Auto) Eos # (Auto) Baso # (Auto) PT Pending INR Pending APTT Sodium Potassium Chloride Carbon Dioxide Anion Gap BUN Creatinine GFR Calculation Glucose Calcium Total Bilirubin AST ALT Alkaline Phosphatase Troponin T Total Protein Albumin Globulin Albumin/Globulin Ratio Urine Color Yellow Urine Appearance Clear Urine pH 5.0 Ur Specific [place] 1.020 Urine Protein Neg Urine Glucose (UA) Negative Urine Ketones Neg Urine Occult Blood Neg Urine Nitrate Neg Urine Bilirubin Neg Urine Urobilinogen 2.0 A Ur Leukocyte Esterase Neg Ur Culture Indicated? No 09/27/19 09/27/19 09/27/19 20:47 20:46 20:46 WBC 9.5 RBC 2.57 L Hgb 8.1 L Hct 24.7 L MCV 96.1 MCH 31.5 MCHC 32.8 RDW 24.8 H Plt Count 656 H MPV 10.4 Gran % 73.3 Lymph % (Auto) 9.2 L [place] % (Auto) 12.3 H Eos % (Auto) 3.7 Baso % (Auto) 1.5 Gran # 6.98 Lymph # (Auto) 0.88 L [place] # (Auto) 1.17 H Eos # (Auto) 0.35 Baso # (Auto) 0.14 PT INR APTT Sodium 138 Potassium 4.3 Chloride 102 Carbon Dioxide 24 Anion Gap 12.0 BUN 17 Creatinine 0.9 GFR Calculation 75 Glucose 118 H Calcium 8.5 L Total Bilirubin 1.2 H AST 22 ALT 22 Alkaline Phosphatase 118 H Troponin T < 0.01 Total Protein 5.9 Albumin 3.6 Globulin 2.3 Albumin/Globulin Ratio 1.6 Urine Color Urine Appearance Urine pH Ur Specific [place] Urine Protein Urine Glucose (UA) Urine Ketones Urine Occult Blood Urine Nitrate Urine Bilirubin Urine Urobilinogen Ur Leukocyte Esterase Ur Culture Indicated? 09/27/19 20:36 WBC RBC Hgb Hct MCV MCH MCHC RDW Plt Count MPV Gran % Lymph % (Auto) [place] % (Auto) Eos % (Auto) Baso % (Auto) Gran # Lymph # (Auto) [place] # (Auto) Eos # (Auto) Baso # (Auto) PT 23.4 H INR 2.0 H APTT 38 H Sodium Potassium Chloride Carbon Dioxide Anion Gap BUN Creatinine GFR Calculation Glucose Calcium Total Bilirubin AST ALT Alkaline Phosphatase Troponin T Total Protein Albumin Globulin Albumin/Globulin Ratio Urine Color Urine Appearance Urine pH Ur Specific [place] Urine Protein Urine Glucose (UA) Urine Ketones Urine Occult Blood Urine Nitrate Urine Bilirubin Urine Urobilinogen Ur Leukocyte Esterase Ur Culture Indicated? Discharge Plan Patient/Caregiver Discharge Instructions Activity: increase activity as tolerated Diet: Regular Diet Activity Restrictions/Additional Instructions: Follow-up with primary care physician in 5 to 7 days Follow-up recreation director for management of MDS/anemia Coumadin dosing based on INR as per PCP Please forward echocardiogram results to PCP along with discharge summary Prescriptions: Continued fluoxetine 20 mg capsule 20 mg PO QDAY Qty: 90 RF: 4 ipratropium-albuterol 0.5 mg-3 mg(2.5 mg base)/3 mL solution for nebulization 3 ml INHALATION QID Qty: 90 RF: 4 budesonide 0.5 mg/2 mL suspension for nebulization 0.5 mg INHALATION Q12H Qty: 60 RF: 5 lorazepam [Ativan] 1 mg tablet See Rx Instructions .ROUTE .COMPLEX Qty: 30 RF: 1 Retacrit 40,000 unit/mL solution 40,000 unit SUB-Q 3XW Qty: 1 RF: 0 alendronate [Fosamax] 70 mg tablet 70 mg PO QWEEK Qty: 12 RF: 1 aspirin 81 mg tablet,chewable 81 mg PO QDAY RF: 0 acetaminophen [Tylenol] 325 mg tablet 650 mg PO BID PRN (Reason: DCD) RF: 0 (DME) Hernia jock Qty: 1 RF: 0 (DME) hernia binder Qty: 1 RF: 0 prednisone 5 mg tablet 2.5 mg PO Q OTHER DAY RF: 0 gabapentin 300 mg capsule 600 mg PO QHS Qty: 180 RF: 1 Hold Instructions: Doctor's Order warfarin 5 mg tablet See Rx Instructions PO .COMPLEX Qty: 30 RF: 3 meclizine 25 MG tablet 25 mg PO TIDP PRN (Reason: Vertigo) Qty: 30 RF: 0 Follow Up Plan Follow up with: Mike Valdez MD [Primary Care Provider] - Patient Disposition: Home, Self-Care Hospital Course: Discharge diagnosis * Symptomatic anemia with dizziness. Clinically resolved status post 2 units PRBC transfusion. History of MDS * Dizziness likely secondary to symptomatic anemia. Prior history of vertigo and has been taking meclizine at home. Echocardiogram completed however results awaited. * Atrial fibrillation-rate controlled. discharging on Coumadin for CVA prophylaxis. * History of congestive Heart failure-well compensated * COPD -On supplemental oxygen/steroid/bronchodilators * Eosinophic Pneumonia * h/o CVA/PVD -on Coumadin/aspirin * Neuropathy on gabapentin * Myelodysplastic Syndrome-recommend follow-up with recreation director as outpatient * Depression/anxiety on lorazepam/fluoxetine Brief hospital course History of present illness: Mr. Austin is a 89 year old M with a history of eosinophilic pneumonia/COPD/CHF/A. fib on anticoagulation and underlying myelodysplastic syndrome who presents to the ER with episodes of dizziness/weakness and blurry vision. Initial work-up in the ER was consistent with symptomatic anemia. Patient was ordered transfusion and hospital service was consulted for admission. There is no evidence of overt bleeding/hematemesis/hematochezia. Patient underwent back surgery in May. Currently on lidocaine patches for right-sided rib fractures following a fall at home. Patient denies chest pain/shortness of breath. He occasionally takes meclizine for his dizziness symptoms. Symptoms associated with nausea/emesis x2 following meclizine yesterday. But denies unilateral weakness/tinnitus or hearing loss At the time of evaluation patient is alert and oriented. He denies active distress. His symptoms have improved slightly. Denies fever, diarrhea, dysuria 09/27-patient currently asymptomatic status post units transfusion. Feels at baseline. Requesting discharge. No further episode of dizziness lightheadedness. Echocardiogram completed. Patient will follow with primary care physician. Overall status at discharge: patient is progressing back to baseline Discharge Orders: Discharge Order (Routine); Ordered 09/28/19 Ordered By: Thomas DAS VTE Deep Vein Thrombosis/Pulmonary Embolism Present on Admission: No
[2019-09-28] MEDS ORDERED: LIDOCAINE PATCH TOPICAL SCH ×2 (10:00→22:00)
[2019-09-28 10:02] LABS: INR 1.6 (0.9-1.1); Prothrombin Time 19.2 sec (11.9-14.5)
[2019-09-28 10:03] LABS: Basophils # (Auto) 0.15 K/mcL (0.00-0.30); Basophils % (Auto) 1.7 % (0.0-2.0); Eosinophils # (Auto) 0.42 K/mcL (0.00-0.70); Eosinophils % (Auto) 4.7 % (0.0-7.0); Granulocytes % (Auto) 64.5 % (38.0-78.0); Hematocrit 33.4 % (40.1-51.0); Hemoglobin 11.2 g/dL (13.7-17.5); Lymphocytes # (Auto) 1.44 K/mcL (1.50-4.80); Lymphocytes % (Auto) 16.1 % (15.5-49.0); Mean Cell Volume 92.8 fL (80.0-100.0); Mean Corpuscular HGB Conc 33.5 g/dL (31.0-36.0); Mean Platelet Volume 10.9 fL (7.4-10.4); Monocytes # (Auto) 1.16 K/mcL (0.10-0.90); Platelet Count 677 K/mcL (140-440); Red Cell Distribution Width 22.5 % (11.5-14.5); WBC 8.9 K/mcL (4.50-11.00)
[2019-09-28] MEDS ORDERED: SENNOSIDES 1 TABLET PO SCH (21:00)
[2019-09-28] MEDS ORDERED: GABAPENTIN 300 MG CAPSULE PO SCH (21:00)
== END 2019-09-28 12:14 | disposition home or self-care (01) ==
LOC: ED 19:54 → INTOOBSV 23:51 → MEDSUR 23:51
PROVIDERS: ADMIT Internal Medicine; ATTEND Internal Medicine